=== PATIENT | female | born 1985 | race Caucasian/White ===

== ENCOUNTER 2024-02-21 13:12 | Outpatient (AMB) | payer OTHER, SELFPAY ==
--- NOTE | 2024-02-21 13:13 | A.OFFVIS_ITS ---
Vital Signs 02/21/24 13:22 Height 5 ft 3 in Weight 289 lb 2 oz BMI 51.2 BP 145/75 H Blood Pressure Location Lt brachial Position Sitting Pulse 113 H Intake Visit Reasons: Umbilical Hernia Intake Note: Patient is seen in office for evaluation and treatment of an umbilical hernia. 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 She reports undergoing a laparoscopic cholecystectomy which was complicated by an infection in the abdominal wall. She now notes a palpable lump below the incision just above the umbilicus which increases in size with coughing and straining and causes discomfort when palpated. She now reports nausea and vomiting as well. She reports a previous history of abdominal infections as well following a section. She was recently diagnosed with psoriatic arthritis and is awaiting evaluation by immunology as well. Besides the periumbilical pain she also reports pain in the right upper quadrant near the site of her previous gallbladder surgery. She was unable to feel any lumps in this location. FORMERLY [facility] Surgical History History of laparoscopic cholecystectomy Previous section (~04/27/19) Social History Alcohol intake: current Alcohol intake frequency: holidays/special occasions only Patient Tobacco Use Status: Never used Tobacco Review of Systems Const All systems reviewed & are unremarkable except as noted in HPI and below Denies chills, Denies fever(s), Denies headache(s), Denies poor appetite and Denies weakness ENT Denies headache(s) Card Denies chest pain, Denies irregular heart rhythm, Denies palpitations and Denies dyspnea Resp Denies cough, Denies excessive phlegm production and Denies dyspnea GI Reports abdominal pain, Reports bloating, Denies change in bowel habits, Denies constipation, Reports heartburn, Denies diarrhea, Reports nausea and Reports vomiting Denies urinary frequency Musc Denies back pain, Denies muscle weakness and Denies numbness Skin/Breast Denies changing lesions and Denies unusual bruising Neuro Denies headache(s), Denies numbness, Denies paresthesias and Denies weakness Psych Denies anxiety and Denies depression Endo Denies palpitations Andrea/Lymph Denies lymphadenopathy Physical Exam Const General: cooperative and no acute distress Nutritional Appearance: well nourished Orientation/consciousness: patient oriented x3 Limitations: no limitations HEENT Head: Yes normocephalic and Yes atraumatic Ears: hearing grossly normal bilaterally Resp Effort & Inspection: normal respiratory effort, no audible wheezes, no cough and no respiratory distress Cardio Jugular venous distension: no JVD GI Inspection: Yes normal to inspection Palpation (GI): Soft to palpation, Tenderness to palpation present (GI) (Right upper quadrant and periumbilical), no guarding, not rigid and No hepatosplenomegaly present Percussion: Yes normal to percussion Auscultation: normal bowel sounds Rectal Exam - Female: deferred Skin Other: Warm, dry, no rash Neuro General: patient oriented x3 Extrem General: Yes no clubbing, cyanosis or edema Assessment & Plan Assessment & Plan (1) Abdominal pain, RUQ: Code(s): R10.11 - Right upper quadrant pain Category: Medical (2) Incisional hernia: Comment: supraumbilical s/p laparoscopic cholecystectomy Code(s): K43.2 - Incisional hernia without obstruction or gangrene Category: Medical Qualifiers: Obstruction and gangrene presence: without obstruction or gangrene Qualified Code(s): K43.2 - Incisional hernia without obstruction or gangrene Plan 38-year-old female patient with a prior history of a laparoscopic cholecystecto my now presenting with complaints of pain in the periumbilical region in the vicinity of her previous laparoscopic cholecystectomy incision. Examination reveals an obvious incisional hernia in this location. Examination also reveals tenderness in the right upper quadrant with no other obvious physical findings to indicate underlying hernia or infection. I recommended further evaluation with a CT abdomen and pelvis due to the unusual symptoms away from the site of the incisional hernia. I will call her with the results of the study once they are available. She expressed understanding and agrees with the plan. Orders: Orders CT abdomen pelvis w IV con Today K43.2 - Incisional hernia without obstruction or gangrene, R10.11 - Right upper quadrant pain Coding Level of Care Code New Pt Level 4 (14449) Diagnoses Abdominal pain, RUQ R10.11 Incisional hernia, without obstruction or gangrene K43.2 Obstruction and gangrene presence: without obstruction or gangrene
[2024-02-21 13:22] VITALS: BP 145/75; PULSE 113; BMI 51.2
== END 2024-02-21 13:52 | disposition home or self-care (01) ==
PROVIDERS: PCP Nurse Practitioner; Referring Provider Nurse Practitioner; Visit Provider Surgery
DX: R10.11 Right upper quadrant pain (principal); K43.2 Incisional hernia without obstruction or gangrene
CPT/HCPCS: 99204

== ENCOUNTER 2024-03-14 11:01 | Outpatient (REF) | payer OTHER, SELFPAY ==
--- NOTE | ~2024-03-14 | CT_ITS ---
CLINICAL HISTORY: R10.11 - Right upper quadrant pain CT abdomen and pelvis with contrast Comparison: None Findings: No consolidation or effusion. The appearance of the liver suggests fatty infiltration without focal lesion. Otherwise unremarkable solid organs. There is no abnormal findings in the gallbladder fossa. No urolithiasis. No bowel obstruction, pneumoperitoneum, or pneumatosis. Pelvic contents unremarkable. Normal appendix. The bones are intact. IMPRESSION: Hepatic steatosis. This document has been electronically signed by: Dave Butcher MD on 03/15/2024 21:01:35
[2024-03-14] MEDS: iohexoL 350 MG/ML 100 ML INFUS..BTL 85 ML IV (13:44)
[2024-03-14] MEDS: Barium Sulfate Oral (Berry) 450 ML ORAL.SUSP 900 ML PO (13:44)
== END 2024-03-14 11:02 | disposition home or self-care (01) ==
LOC: HO.CT 11:01
PROVIDERS: PCP Nurse Practitioner; Visit Provider Surgery
DX: R10.11 Right upper quadrant pain (principal); K43.2 Incisional hernia without obstruction or gangrene
CPT/HCPCS: 74177; Q9967

== ENCOUNTER → 2024-03-14 11:03 | Outpatient (BNV) | payer OTHER, SELFPAY | PROVIDERS: PCP Nurse Practitioner; Visit Provider Specialist | DX: K76.0 Fatty (change of) liver, not elsewhere classified (principal) | CPT/HCPCS: 74177 ==

== ENCOUNTER 2024-04-04 09:31 | Day surgery (SDC) | payer OTHER, SELFPAY ==
--- NOTE | 2024-04-02 14:44 | HO.ANESPROP2 ---
Documented by User: Zehra Ross NP 04/02/24 14:46 HPI - Anesthesia Eval Consult details Narrative: 38yo F for Repair Hernia Umbilical Reducible with mesh BMI 51 PMFSH Active Problems Active Problems: All Active Problems Incisional hernia (Acute) Abdominal pain, RUQ (Acute) Surgical History Surgical History History of laparoscopic cholecystectomy Previous section (~04/27/19) Social History Social History Alcohol intake: current Alcohol intake frequency: does not drink Patient Tobacco Use Status: Former Tobacco user Meds Allergies Allergy/AdvReac Type Severity Reaction Status Date / Time cefaclor [From Ceclor] Allergy Mild Unknown Verified 02/21/24 13:19 codeine Allergy Mild Unknown Verified 02/21/24 13:19 Home Medications ?Medication ?Instructions ?Recorded ?Confirmed ?Last Taken ?Type clonazepam 0.5 mg tablet mg PO 02/21/24 02/21/24 04/04/24 History duloxetine 60 mg capsule,delayed 60 mg PO DAILY 02/21/24 02/21/24 04/03/24 History release Assessment and Plan Assessment Anesthesia Assessment: Chart Reviewed Documented by User: Mimi Llanos MD 04/04/24 10:12 PMFSH Surgical History Surgical History History of laparoscopic cholecystectomy Previous section (~04/27/19) History of Problems with Anesthesia: No Social History Social History Alcohol intake: current Alcohol intake frequency: does not drink Patient Tobacco Use Status: Former Tobacco user Meds Allergies Allergy/AdvReac Type Severity Reaction Status Date / Time cefaclor [From Ceclor] Allergy Mild Unknown Verified 02/21/24 13:19 codeine Allergy Mild Unknown Verified 02/21/24 13:19 Home Medications ?Medication ?Instructions ?Recorded ?Confirmed ?Last Taken ?Type clonazepam 0.5 mg tablet mg PO 02/21/24 02/21/24 04/04/24 History duloxetine 60 mg capsule,delayed 60 mg PO DAILY 02/21/24 02/21/24 04/03/24 History release Exam Airway Mallampati Class: III TM Dist: >3cm Neck ROM: Full Loose/Missing/Broken Teeth: No Heart: RRR Lungs: CTA Assessment and Plan Assessment Anesthesia Assessment: Anesthesia Plan Discussed Final Anesthetic Review History of Problems with Anesthesia: No NPO: Yes ASA Class: III Final Preanesthetic Review: Meds/Allgs Chart Reviewed, Consent Obtained/Reviewed and Anes Risks/Benef Reviewed Patient Risk: Intermediate Procedure Risk: Low Anesthetic Plan Anesthetic Plan: GA Disposition: Standard PACU
[2024-04-04] VITALS (11 sets, daily range): BP systolic 95–125; BP diastolic 42–78; PULSE 70–102; RESP 16–20; TEMP 36.5–36.8; O2SAT 94–98; BMI 51.2; BMI 52.3
[2024-04-04 09:50] LABS: UPreg QC Valid YES; Urine Pregnancy NEGATIVE (NEGATIVE)
--- NOTE | 2024-04-04 10:02 | MHC.SHP ---
Pre-Procedural Eval Section A - 24 Hr Update-Section A only Date of Service: 04/04/24 The patient is an INPATIENT: No Changes since office visit: Yes Patient answered all questions; No Cold of Flu in the past 2 weeks, No New Medical Problems and No Changes in Medication The patient has been examined within 24 hours of the surgical procedure. The History & Physical has been completed within 30 days and I have reviewed it.: No Section B - Complete if H&P > 30 days Chief Complaint: Right upper quadrant pain Details of Present Illness: No change since previous visit Relevant Family History (Specify if Yes): No Relevant Social History: None Present Medications: see Short Stay Collaborative assessment Medical History: Significant History (Asthma, obesity) History of Previous Operations: No relevant previous surgery Allergies: Allergies Allergy/AdvReac Type Severity Reaction Status Date / Time cefaclor [From Ceclor] Allergy Mild Unknown Verified 02/21/24 13:19 codeine Allergy Mild Unknown Verified 02/21/24 13:19 Review of Systems Sugical H&P ROS: Negative: Constitution, Cardiovascular, Respiratory, Neurological, Allergic/Immunologic, Gastrointestinal, Genitourinary, Musculoskeletal and Integumentary Exam Surgical H&P Exam: Normal: HEENT, Normal: Heart, Normal: Lungs, Normal: Extremities, Normal: Abdomen and Normal: Skin Plan Diagnosis/Plan: Unchanged I have reviewed the history and physical and performed a pertinent physical examination on my patient. No changes have occurred unless specified. Time Spent With Patient Time: Total time managing care of this patient today ____ minutes.
[2024-04-04] MEDS: Lactated Ringers 1,000 ML 100 ML IVCONT (10:06)
[2024-04-04] MEDS: vancomycin/NS 2,000 MG/500 ML PLAST..BAG 250 MG IV (10:06)
--- NOTE | 2024-04-04 11:17 | P.OP_ITS ---
Operative Note Operative Note Date of Service: 04/04/24 Narrative: Preoperative diagnosis: Umbilical hernia, reducible Postoperative diagnosis: Same Procedure: Repair of umbilical hernia with mesh Surgeon: Kentrell Trotter MD [employer] Supervisor: Airam Goetz PA-C Anesthesia: General endotracheal Indications for procedure: 38-year-old female patient presenting with a palpable lump in the umbilicus noted to have abdominal pain mainly in the upper abdomen. CT abdomen and pelvis confirmed an umbilical hernia measuring approximately 3 cm in diameter. Operative findings: 3 cm reducible umbilical hernia Specimen: Hernia sac Estimated blood loss: 2 mL Complications: None Procedure details: Patient was brought to the OR and placed in a supine position. After administering general anesthesia the patient's abdomen was prepped with ChloraPrep and draped in a sterile fashion. A surgical time-out was called the consent confirmed. Patient received preoperative antibiotics and Venodyne boots were in place. Local anesthesia was then infiltrated in the periumbilical skin. A curvilinear incision was made in a transverse fashion over the umbilicus and carried out through subcutaneous tissue up to the hernia sac. The hernia sac was then dissected off the umbilical skin and the the fascial edges identified. Redundant fascia and sac were then excised and sent to pathology for further examination. A preperitoneal space was then created using electrocautery and blunt dissection. A 6.4 cm round Ventralex mesh was then obtained. This was deployed within the preperitoneal space and secured in 4 quadrants using 0 Tycron sutures in a parachute fashion. The fascia was then closed over the mesh using [id number] 0 Tycron sutures. The abdominal wounds were then irrigated with saline solution and suctioned dry. Umbilical skin was secured to the fascia using a 3-0 Polysorb suture. Subcutaneous tissue and dermis were reapproximated using interrupted 3-0 Polysorb sutures. Skin was then closed using a running subcuticular 4-0 Polysorb suture. Steri-Strips, 4 x 4 gauze and Tegaderm were then applied. The patient tolerated the procedure well. Sponge, instrument, and needle counts were reported as correct. The patient was transferred to PACU in stable condition.
[2024-04-04] MEDS: fentaNYL citrate/PF 100 MCG/2 ML VIAL 25 MCG IVPUSH ×5 (11:50→12:18)
[2024-04-04] MEDS: oxyCODONE HCl Immed Release 5 MG TABLET PO (11:51)
== END 2024-04-04 13:20 | disposition home or self-care (01) ==
PROVIDERS: Nurse Practitioner; PCP Nurse Practitioner; Visit Provider Surgery
PROC: (CPT 49593; principal; 2024-04-04 11:00)
DX: K43.2 Incisional hernia without obstruction or gangrene (principal); R10.11 Right upper quadrant pain; Z79.899 Other long term (current) drug therapy; Z88.1 Allergy status to other antibiotic agents; Z88.5 Allergy status to narcotic agent; Z90.49 Acquired absence of other specified parts of digestive tract; Z86.19 Personal history of other infectious and parasitic diseases
CPT/HCPCS: 49593; 81025; 88302; C1781; J0131; J1100; J2003; J2405; J2704; J3010; J3370

== ENCOUNTER → 2024-04-04 09:31 | Outpatient (BNV) | payer OTHER, SELFPAY | PROVIDERS: PCP Nurse Practitioner; Visit Provider Surgery | DX: K42.9 Umbilical hernia without obstruction or gangrene (principal) | CPT/HCPCS: 49615 ==

== ENCOUNTER 2024-04-12 12:41 | Inpatient (IN) | payer OTHER, SELFPAY ==
--- NOTE | ~2024-04-12 | US_ITS ---
PROCEDURE: Ultrasound-guided drainage of abdominal wall seroma HISTORY: Abdominal wall seroma status post ventral hernia repair. SPECIMEN: A specimen was appropriately labeled and sent to the laboratory as requested ACCESS: 5 fr Yueh needle/catheter MEDICATIONS: 10 mL 1% lidocaine TECHNIQUE/FINDINGS Appropriate preprocedural clinical history and imaging studies were reviewed. The patient was brought to the department and placed in the supine position. Ultrasound images of the abdomen were obtained to localize the abdominal wall fluid collection. Permanent ultrasound images were saved. The risks and benefits and possible complications were discussed with the patient and consent form was signed. The abdomen was prepped and draped in the usual sterile fashion. 10 mL of 1% lidocaine was used to obtain local anesthesia of the skin and deeper tissues. A 10 fr locking catheter was advanced through the abdominal wall and into the fluid collection via trocar method. 60 cc of divina fluid was aspirated sent for culture. The catheter was secured to the skin with a single suture and a sterile dressing was applied over the site. The catheter was then connected to a DADA bulb. The patient tolerated the procedure well. There were no immediate complications US/US drain soft tissue w imaging Impression: Ultrasound-guided drainage of the abdominal wall fluid collection/seroma. This procedures performed by Mikey Wren PA-C and supervised by Dr. Taylor. Electronically signed by: Trenton Taylor MD 04/30/2024 04:[address] [facility]
--- NOTE | ~2024-04-12 | CT_ITS ---
EXAMINATION: CT ABDOMEN AND PELVIS WITH CONTRAST CLINICAL INFORMATION: Follow up abdominal wall seroma. COMPARISON: Outside CT 04/12/2024 ([facility]). 03/14/2024 ([facility] [place] TECHNIQUE: Multidetector volumetric images were obtained from the superior aspect of the liver through the pubic symphysis following administration 85 mL of Omnipaque 350 intravenous contrast. Sagittal and coronal reformatted images were obtained on the technologist's workstation. Oral contrast: No This CT examination was performed using dose optimization techniques as appropriate, variously including the following: *Automated exposure control *Adjustment of mA and/or kV according to patient size (this includes techniques or standardized protocols for targeted exams where dose is matched to indication/reason for exam; i.e. extremities or head) *Use of iterative reconstruction technique FINDINGS: LUNG BASES: The visualized lung bases are unremarkable. Small hiatus hernia. LIVER, GALLBLADDER, AND BILIARY TREE: The liver is normal in size and shape, with mild hypoattenuation consistent with fatty change. No focal hepatic lesion or biliary ductal dilatation is present. Gallbladder is surgically absent. PANCREAS: Mild fatty change of the head and uncinate process. Otherwise normal. SPLEEN: Unremarkable. ADRENAL GLANDS: Mild left hyperplasia, stable. The right is normal. KIDNEYS AND URETERS: The kidneys are normal in size, shape, and attenuation. No hydronephrosis, hydroureter, or calculi seen. No perinephric stranding. BLADDER: Unremarkable. GASTROINTESTINAL TRACT: Normal appendix. Mild sigmoid diverticulosis. No acute finding. Small type I hiatus hernia. ABDOMINAL WALL: -Supraumbilical seroma is increasing in size. It extends subjacent to the rectus sheath, and appears to be organizing into a loculated peripherally enhancing collection. The component subjacent to the rectus sheath measures 2.1 x 4.3 x 4.0 cm (AP, TRV, CC), and the superficial component just superior to the umbilicus measures approximately 6.1 x 4.7 x 4.3 cm. (Both are larger and more organized). LYMPH NODES: Normal. VASCULAR: Unremarkable. PELVIC VISCERA: The uterus and adnexa are unremarkable. IUD position appears slightly low by approximately 1.1 cm. Stable 2.8 cm right ovarian cyst. OSSEOUS STRUCTURES: Minimal levoconvex lumbar scoliosis. Otherwise normal in appearance. CT/CT abdomen pelvis w IV con IMPRESSION: 1. Supraumbilical seroma appears to be larger and more organized, now with thin peripheral enhancement, involving both superficial and deep components. See above for detail. Cannot definitively exclude abscess. 2. Otherwise, no acute findings in the abdomen or pelvis. 3. Hepatic steatosis. 4. Small hiatus hernia. 5. IUD position appears slightly low. Findings communicated to Dr. Trotter at 11:21 AM, 04/16/2024 via secure text. Electronically signed by: Jose Alejandro Maynard MD 04/16/2024 11:25 AM [facility] [place]
[2024-04-12 12:54] VITALS: BP 141/70; PULSE 83; RESP 18; TEMP 36.8; O2SAT 94; BMI 46.6
--- NOTE | 2024-04-12 12:57 | ED.ABDPAIN ---
HPI - Abdominal Pain General Chief Complaint: Abdominal Pain Stated Complaint: RECENT HERNIA REPAIR, ?INFECTION Time Seen by Provider: 04/12/24 12:54 Source: patient, EMS, RN notes reviewed and old records reviewed Mode of arrival: EMS Limitations: no limitations History of Present Illness ED Provider: Salima Lopez PA-C HPI narrative: 38 y/o female with history of morbid obesity, hx cholecystectomy, hx , hx umbilical hernia repair by Dr. Trotter on 04/04/24 who presents to the ER from [facility] as a transfer for surgical follow up of a possible post-op complication/infection. She reports after her surgery 1 week ago she was doing well until 2 days ago when she developed increased pain, abdominal distention, purulent, foul-smelling discharge from the umbilical hernia repair site. She vomited today. She has been using enemas to relieve constipation. She denies fever, chills. She took an ambulance to [facility] ER because they would not transport her to [place]. In [facility] ER patient was found to have a collection of fluid and gas in the SQ tissues deep to the umbilicus measureing 4.4 x 4.0 x 4.9cm. There is also a small collection of fluid just deep to the anterior abdominal wall bear the same level measuring 3.2 x 3.9 x 2.3 cm which may communicate with the superficial collection but does not contain gas. She was given 4mg IV morphine there. She was sent to [place] ER for surgical continuity. MD elicited complaint: abdominal pain and other (concern for infection at surgical site ) Pertinent past history: other (recent umbilical hernia repair) Onset (ago): day(s) (2) Pain Consistency: constant Location: periumbilical Severity: moderate Quality: aching and fullness Radiation: none Migration to: no migration Exacerbating factors: eating Relieving factors: nothing Context: recent surgery/procedure Associated symptoms: nausea, vomiting and constipation Related Data Home Medications ?Medication ?Instructions ?Recorded ?Confirmed duloxetine 60 mg capsule,delayed 60 mg PO DAILY 02/21/24 02/21/24 release clonazepam 1 mg tablet 1 mg PO TID 04/12/24 ibuprofen 600 mg tablet 600 mg PO QID 04/12/24 Previous Rx's ?Medication ?Instructions ?Recorded ondansetron HCl 4 mg tablet 4 mg PO Q8H PRN nausea and 04/04/24 vomiting #20 tabs oxycodone 5 mg tablet 5 mg PO Q6H PRN pain (scale score 04/06/24 7-10) #10 tabs Allergies Allergy/AdvReac Type Severity Reaction Status Date / Time cefaclor [From Ceclor] Allergy Mild Unknown Verified 04/12/24 12:56 codeine Allergy Mild Unknown Verified 04/12/24 12:56 Review of Systems Review of Systems Yes all other systems are reviewed and are negative FORMERLY [facility] Past Medical History Surgical History History of laparoscopic cholecystectomy Previous section (~04/27/19) Social History Social History Alcohol intake: current Alcohol intake frequency: does not drink Patient Tobacco Use Status: Former Tobacco user Smoked in Last 30 Days: No Use of substances other than those prescribed or required for medical reasons: No Advance Directives: No Advance Directives Information Provided: Yes Do you have a plan to hurt others: No Plan Patient : No Physical Exam ED Vital Signs: Vital Signs - 24 hr 04/12/24 12:54 Temperature 98.2 F Pulse Rate 83 Respiratory Rate 18 Blood Pressure 141/70 H Pulse Oximetry 94 Oxygen Delivery Method Room Air BMI result Body Mass Index 46.6 Appearance: Alert. Oriented X3. No acute distress. Head: normocephalic, atraumatic. Eyes: Pupils equal, round and reactive to light. ENT: Pharynx normal. No tonsillar swelling or exudate. Neck: Normal inspection. Neck supple. CVS: Normal heart rate and rhythm. Pulses normal. Respiratory: No respiratory distress. Breath sounds normal. Abdomen: Obese, there is surgical incisions at the umbilicus with steri strips in place with foul smelling drainage, minimal surrounding erythema. no induration or crepitus. tenderness of the periumbilical area. decreased but present +BS x4 Skin: Skin warm and dry. Normal skin color. Normal skin turgor. No rashes. Extremities: No lower extremity edema. No joint swelling. Neuro/psych: Oriented X 3. No motor deficit. No sensory deficit. CN II-XII intact. Normal speech and cognition. slow but steady gait Medical Decision Making Medical Decision Making MDM Narrative: 38 yo female POD #8 from umbilical hernia repair here with concern of abscess or seroma. she is in pain and vomiting. she states she has gotten post-op infections with her gallbladder surgery as well as her . no hx DM. labs showing no leukocytosis. inflammatory markers added. Dr. Trotter aware patient is here. will plan for IV antibiotics and admission. she is not septic at this time. CT Disc given to radiology to upload in our system for review. Differential Diagnosis Differential Diagnoses: The differential diagnosis associated with the presentation includes seroma, abscess, cellulitis, post-op obstruction, fistula Admission/Observation Consideration of admission/observation: Escalation of care including admission/observation considered Consult Healthcare Provider Management of the patient was discussed with: Rn Operating Room Dr. Trotter Lab Data MDM Lab Attestation statement: I reviewed the patient's lab results. 04/12/24 13:21 04/12/24 13:21 Labs: Lab Results 04/12/24 Range/Units 13:21 WBC 10.6 (4.8-10.8) X10*3/uL RBC 4.20 (4.20-5.50) X10*6/uL Hgb 12.6 (12.0-16.0) g/dl Hct 36.5 L (37.0-47.0) % MCV 86.9 (80.0-98.0) fL MCH 30.0 (27.0-33.0) pg MCHC 34.5 (31.0-35.0) g/dl RDW 13.7 (11.0-16.0) % Plt Count 350 (160-400) X10*3/uL MPV 9.6 (9.4-12.3) fL Immature Gran % (Auto) 0.7 H (0.0-0.4) % Neut % (Auto) 64.9 (45-73) % Lymph % (Auto) 24.2 (20-40) % [place] % (Auto) 7.7 (2-11) % Eos % (Auto) 2.1 (0-4) % Baso % (Auto) 0.4 (0-2) % Lymph # (Auto) 2.6 (1.2-4.9) X10*3/uL [place] # (Auto) 0.8 (0.1-1.2) X10*3/uL Eos # (Auto) 0.2 (0.0-0.4) X10*3/uL Baso # (Auto) 0.0 (0.0-0.2) X10*3/uL Abs Immat Gran (auto) 0.07 H (0.00-0.03) X10*3/uL Absolute Neuts (auto) 6.9 (2.0-8.3) x10*3/uL Absolute Nucleated RBC 0.000 (0.0-0.012) X10*3/uL Nucleated RBC % (auto) 0.0 (0.0-0.2) /100WBC ESR 54 H (0-20) MM/HR Sodium 135 (135-145) mmol/L Potassium 4.8 (3.3-5.1) mmol/L Chloride 106 (96-108) mmol/L Carbon Dioxide 20 L (22-29) mmol/L Anion Gap 14 (12-20) BUN 9 (9-16) mg/dL Creatinine 0.73 (0.5-1.4) mg/dL Estim Creat Clear Calc 131.8 Estimated GFR > 60 Random Glucose 89 (60-115) mg/dL Lactic Acid 1.1 (0.5-2.0) mmol/L Calcium 9.0 (8.4-10.2) mg/dL Magnesium 2.1 (1.6-2.6) mg/dL Total Bilirubin 0.3 (0.0-1.0) mg/dL Direct Bilirubin 0.1 (0.0-0.5) mg/dL AST 35 H (5-31) U/L ALT 26 (0-31) U/L Alkaline Phosphatase 79 (39-117) U/L C-Reactive Protein 2.36 H (< or = 0.50) mg/dL Total Protein 7.8 (6.5-8.0) g/dL Albumin 3.8 (3.5-5.0) g/dL Independent Historian Clinical information obtained from an independent historian. History obtained from or confirmed by: EMS External Record Review External record reviewed: Outpatient record, Prior outpatient labs, Prior outpatient radiology and Outside ED record Prescription Management I considered prescription management with: Pain Medication and Antibiotic Chronic Conditions Patient?s care impacted by: Other (morbid obesity ) Medications Administered Discontinued Medications Generic Name Dose Route Start Last Admin Trade Name Freq PRN Reason Stop Dose Admin Lactated Ringer's 1,000 mls @ 999 mls/hr 04/12/24 13:15 04/12/24 13:31 Lr IV 04/12/24 14:15 999 mls/hr .Q1H1M KATHY Administration Piperacillin Sod/Tazobactam 50 mls @ 100 mls/hr 04/12/24 13:09 04/12/24 14:22 Sod 3.375 gm/ Sodium Chloride IV 04/12/24 13:38 Infused ONCE ONE Infusion Ondansetron HCl 4 mg 04/12/24 13:08 04/12/24 13:30 Ondansetron Hcl 4 Mg/2 Ml Vial IVPUSH 04/12/24 13:09 4 mg ONCE ONE Administration Critical Care Time Critical Care Time Critical Care Time: No Discharge Plan Discharge Clinical Impression: Abdominal fluid collection Patient Disposition: Admitted As Inpatient
[2024-04-12 13:26] LABS: MANUAL DIFF FLAG NO
[2024-04-12 13:28] LABS: Basophils Percent Auto 0.4 % (0-2); Eosinophils Absolute Auto 0.2 X10*3/uL (0.0-0.4); Eosinophils Percent Auto 2.1 % (0-4); Hematocrit 36.5 % (37.0-47.0); Hemoglobin 12.6 g/dl (12.0-16.0); Imm Gran Abs Auto 0.07 X10*3/uL (0.00-0.03); Imm Gran Pct Auto 0.7 % (0.0-0.4); Lymphocytes Absolute Auto 2.6 X10*3/uL (1.2-4.9); Lymphocytes Percent Auto 24.2 % (20-40); Mean Corpuscular HGB Conc 34.5 g/dl (31.0-35.0); Mean Corpuscular Volume 86.9 fL (80.0-98.0); Mean Platelet Volume 9.6 fL (9.4-12.3); Monocytes Absolute Auto 0.8 X10*3/uL (0.1-1.2); Monocytes Percent Auto 7.7 % (2-11); Neutrophils Absolute Auto 6.9 x10*3/uL (2.0-8.3); Neutrophils Percent Auto 64.9 % (45-73); Platelet Count 350 X10*3/uL (160-400); Red Cell Distribution Width 13.7 % (11.0-16.0); White Blood Count 10.6 X10*3/uL (4.8-10.8)
[2024-04-12] MEDS: ondansetron HCL 4 MG/2 ML VIAL IVPUSH ×2 (13:30→16:27)
[2024-04-12] MEDS: Lactated Ringers 1,000 ML 999 ML IV (13:31)
[2024-04-12] MEDS: Piperacillin Sodium/Tazobactam 3.375 GM in 0.9 % Sodium Chloride 50 ML IV ×2 (13:34→18:28)
[2024-04-12 13:44] LABS: Lactic Acid 1.1 mmol/L (0.5-2.0)
[2024-04-12 13:53] LABS: Alanine Aminotransferase 26 U/L (0-31); Albumin Level 3.8 g/dL (3.5-5.0); Alkaline Phosphatase 79 U/L (39-117); Anion Gap 14 (12-20); Aspartate Amino Transferase 35 U/L (5-31); Bilirubin Direct 0.1 mg/dL (0.0-0.5); Bilirubin Total 0.3 mg/dL (0.0-1.0); Blood Urea Nitrogen 9 mg/dL (9-16); C Reactive Protein 2.36 mg/dL (< or = 0.50); Carbon Dioxide 20 mmol/L (22-29); Chloride 106 mmol/L (96-108); Creatinine Clr Calc Pharmacy 131.8; Estimated Glomerular Filt Rate > 60; Glucose Random 89 mg/dL (60-115); Magnesium 2.1 mg/dL (1.6-2.6); Potassium 4.8 mmol/L (3.3-5.1); Sodium 135 mmol/L (135-145); Total Protein 7.8 g/dL (6.5-8.0)
[2024-04-12 14:22] LABS: Erythrocyte Sedimentation Rate 54 MM/HR (0-20)
[2024-04-12 14:44] LABS: Hematocrit 36.6 % (37.0-47.0); Hemoglobin 12.5 g/dl (12.0-16.0); Mean Corpuscular HGB Conc 34.2 g/dl (31.0-35.0); Mean Corpuscular Hemoglobin 29.8 pg (27.0-33.0); Mean Corpuscular Volume 87.1 fL (80.0-98.0); Mean Platelet Volume 9.6 fL (9.4-12.3); Platelet Count 323 X10*3/uL (160-400); Red Cell Distribution Width 13.8 % (11.0-16.0); White Blood Count 10.2 X10*3/uL (4.8-10.8)
--- NOTE | 2024-04-12 14:59 | PHA.MEDREC ---
Addendum entered by Bright Daliey 04/12/24 15:07: reviewed Original Note: Pharmacy Consult ? Medication Reconciliation Pharmacy has completed the medication reconciliation. Spoke to patient to confirm med list.
[2024-04-12 15:00] VITALS: BP 118/62; PULSE 78; RESP 18; TEMP 36.8; O2SAT 95
[2024-04-12] MEDS: Acetaminophen 1,000 MG/100 ML PIGGYBACK 400 MG IV ×2 (15:04→21:27)
[2024-04-12] MEDS: Enoxaparin Sodium 40 MG/0.4 ML SYRINGE SUBCUT (15:15)
[2024-04-12] MEDS: oxyCODONE HCl Immed Release 5 MG TABLET PO (15:15)
--- NOTE | 2024-04-12 15:29 | P.HPGS_ITS ---
History of Present Illness History of Present Illness Date of Service: 04/12/24 Chief complaint: Abd pain following umbilical hernia repair Narrative: Radha Honeycutt is a 38 year old female presenting with complaints of periumbilical abdominal pain following repair of an umbilical hernia performed on 04/04/2024 as a short-stay surgery. She reports having drainage of fluid through her incision over the past several days with associated nausea and vomiting. She presented to the emergency department at [facility] today at which time a CT abdomen and pelvis was performed. This revealed a fluid collection around the umbilical incision possibly seroma or abscess. She was subsequently transferred to [facility] [place] [facility] [place]. Currently she reports pain surrounding the incision as well as nausea/vomiting. She is being admitted to the surgical service for IV antibiotics and further wound management. Review of Systems 2 Review of Systems: Yes all other systems are reviewed and are negative [facility] Surgical History Surgical History History of laparoscopic cholecystectomy Previous section (~04/27/19) Social History Social History Alcohol intake: current Alcohol intake frequency: does not drink Patient Tobacco Use Status: Former Tobacco user Smoked in Last 30 Days: No Use of substances other than those prescribed or required for medical reasons: No Advance Directives: No Advance Directives Information Provided: Yes Do you have a plan to hurt others: No Plan Patient : No Meds Allergies Allergy/AdvReac Type Severity Reaction Status Date / Time cefaclor [From Ceclor] Allergy Mild Unknown Verified 04/12/24 12:56 codeine Allergy Mild Unknown Verified 04/12/24 12:56 Active Medications: Current Medications Calcium Carbonate (Calcium Carbonate 750 Mg Tab.Chew) 750 mg PO Q4H PRN PRN Reason: Heartburn Enoxaparin Sodium (Enoxaparin Sodium 40 Mg/0.4 Ml Syringe) 40 mg SUBCUT Q24H KATHY Last Admin: 04/12/24 15:15 Dose: 40 mg Hydromorphone HCl (Hydromorphone Hcl 0.5 Mg/0.5 Ml Syringe) 0.5 mg IVPUSH Q3H PRN; Protocol PRN Reason: Pain, Severe (Pain Scale 7-10) Acetaminophen (Ofirmev) 1,000 mg in 100 mls @ 400 mls/hr IV Q6H [facility] Last Admin: 04/12/24 15:04 Dose: 400 mls/hr Dextrose/Lactated Ringer's (D5lr) 1,000 mls @ 80 mls/hr IVCONT .[id number] [facility] Piperacillin Sod/Tazobactam (Sod 3.375 gm/ Sodium Chloride) 50 mls @ 100 mls/hr IV Q6H [facility] Magnesium Hydroxide (Milk Of Magnesia 30 Ml Oral.Susp) 30 ml PO DAILY PRN PRN Reason: Constipation Melatonin (Melatonin 3 Mg Tablet) 6 mg PO BEDTIME PRN PRN Reason: Insomnia Ondansetron HCl (Ondansetron Hcl 4 Mg/2 Ml Vial) 4 mg IVPUSH QID PRN PRN Reason: Nausea Oxycodone HCl (Oxycodone Hcl Immed Release 5 Mg Tablet) 5 mg PO Q6H PRN PRN Reason: Pain, Moderate(Pain Scale 4-6) Last Admin: 04/12/24 15:15 Dose: 5 mg Sodium Chloride (0.9 % Sodium Chloride Flush 3 Ml Syringe) 3 ml IVFLUSH QSHIFT [facility] Home Medications ?Medication ?Instructions ?Recorded ?Confirmed ?Last Taken ?Type duloxetine 60 mg capsule,delayed 60 mg PO DAILY 02/21/24 04/12/24 04/12/24 History release clonazepam 1 mg tablet 1 mg PO TID PRN Anxiety 04/12/24 04/12/24 Unknown History fluticasone propionate 50 1 spray intranasal DAILY PRN 04/12/24 04/12/24 Unknown History mcg/actuation nasal Allergy Symptoms spray,suspension ibuprofen 600 mg tablet 600 mg PO QID PRN Pain 04/12/24 04/12/24 Unknown History levonorgestrel 20.4 mcg/24 hr (up 20.4 mcg intrauterine DIRECTED 04/12/24 04/12/24 Unknown History to 8 yrs) 52 mg intrauterine device (Liletta) Physical Exam 2 Vital Signs: Vital Signs: Last Vital Signs Temp 98.2 F 04/12/24 15:00 Pulse 78 04/12/24 15:00 Resp 18 04/12/24 15:00 BP 118/62 04/12/24 15:00 Pulse Ox 95 04/12/24 15:00 O2 Del Method Room Air 04/12/24 15:00 BMI result Body Mass Index 46.6 Const: General: cooperative and no acute distress Nutritional Appearance: w ell nourished Orientation/consciousness: patient oriented x3 Limitations: no limitations HEENT: Head: Yes normocephalic and Yes atraumatic Ears: hearing grossly normal bilaterally Resp: Effort & Inspection: normal respiratory effort, no audible wheezes, no cough and no respiratory distress Cardio: Jugular venous distension: no JVD GI: Other: Incision in a transverse fashion located just above the umbilicus with some serous discharge noted. No erythema is noted in the surrounding skin. There is tenderness to light palpation. Wound is not fluctuant. Inspection: Yes normal to inspection Palpation (GI): Soft to palpation, Tenderness to palpation present (GI) (Right upper quadrant and periumbilical), no guarding, not rigid and No hepatosplenomegaly present Percussion: Yes normal to percussion Auscultation: normal bowel sounds Rectal Exam - Female: deferred Abdomen image: 1. Periumbilical incision Skin: Other: Warm, dry, no rash Neuro: General: patient oriented x3 Extrem: General: Yes no clubbing, cyanosis or edema Results Results Labs: Short CBC 04/12/24 04/12/24 Range/Units 13:21 14:33 WBC 10.6 10.2 (4.8-10.8) X10*3/uL Hgb 12.6 12.5 (12.0-16.0) g/dl Hct 36.5 L 36.6 L (37.0-47.0) % Plt Count 350 323 (160-400) X10*3/uL BMP 04/12/24 13:21 Sodium 135 Potassium 4.8 Chloride 106 Carbon Dioxide 20 L BUN 9 Creatinine 0.73 Calcium 9.0 Liver Function 04/12/24 Range/Units 13:21 Total Bilirubin 0.3 (0.0-1.0) mg/dL Direct Bilirubin 0.1 (0.0-0.5) mg/dL AST 35 H (5-31) U/L ALT 26 (0-31) U/L Alkaline Phosphatase 79 (39-117) U/L Albumin 3.8 (3.5-5.0) g/dL Additional studies: CT abdomen from [facility]: Assessment and Plan (1) Abdominal fluid collection: Status: Acute (2) Incisional hernia: Qualifiers: Obstruction and gangrene presence: without obstruction or gangrene Q ualified Code(s): K43.2 - Incisional hernia without obstruction or gangrene Status: Acute Plan 38-year-old female patient presenting with complaints of drainage from her abdominal incision following an open incisional hernia repair at the umbilicus 1 week ago. Examination does reveal some serous discharge from the wound. There is no surrounding erythema in the skin however. Review of the CT abdomen and pelvis reveals a subcutaneous fluid collection within the pannus which appears most consistent with a seroma although abscess can not be completely ruled out. I therefore recommended admission for IV antibiotics and further wound management. Patient expressed understanding and agrees with the plan. Quality Stroke Does the patient have a stroke diagnosis?: No VTE Prior VTE?: No VTE Risk Level:: Surgical - moderate VTE Device Contraindication: N/A - Device Ordered VTE Drug Contraindication: N/A - Med Ordered Procedures Date of Service Date of Service: 04/12/24
--- NOTE | 2024-04-12 15:32 | PC.NURSE ---
Pt BIBA from [facility] ED transfer, had hernia surgery here on 04/04. For past few days having increased pain, N/V, intermittent fevers and drainage from site (foul). Alert and oriented, breathing even and unlabored, skin warm. Pain in ABD intermittent and worsens with movement. Pt does have a few episodes of vomiting here in ED. Medicated per MAY. Denies SOB or CP.
[2024-04-12] MEDS: Dextrose 5 % and Lactated Ring 1,000 ML 80 ML IVCONT (15:53)
[2024-04-12] MEDS: 0.9 % Sodium Chloride Flush 3 ML SYRINGE IVFLUSH (15:54)
[2024-04-12] MEDS: clonazePAM 1 MG TABLET PO (17:27)
--- NOTE | 2024-04-12 17:34 | PC.NURSE ---
Pt unable to provide urine sample at this time, reports she urinated when she got here and then was incontinent during vomiting episode. Reports she will try again soon
--- NOTE | 2024-04-12 17:35 | PC.NURSE ---
Pt placed in hospital bed for comfort
[2024-04-12 18:41] VITALS: BP 127/67; PULSE 68; RESP 16; TEMP 36.6; O2SAT 96
[2024-04-12 19:39] VITALS: BP 118/74; PULSE 75; RESP 18; TEMP 36.6; O2SAT 75
[2024-04-12 21:31] VITALS: BP 123/75; PULSE 67; RESP 16; TEMP 36.7; O2SAT 97
[2024-04-12 21:32] LABS: Appearance Urine Clear; Color Urine Straw; Glucose Urine UA Negative (Negative); Leukocyte Esterase Urine Negative (Negative); Nitrite Urine Negative (Negative); Urine Blood Negative (Negative); Urine Ketones Negative (Negative); Urine Protein Negative (Neg-Trace)
[2024-04-12 21:53] LABS: UPreg QC Valid YES; Urine Pregnancy NEGATIVE (NEGATIVE)
[2024-04-13] VITALS (7 sets, daily range): BP systolic 117–133; BP diastolic 60–81; PULSE 64–82; RESP 14–20; TEMP 36.7–37.2; O2SAT 95–98
[2024-04-13] MEDS: Piperacillin Sodium/Tazobactam 3.375 GM in 0.9 % Sodium Chloride 50 ML IV ×4 (00:47→18:26)
[2024-04-13] MEDS: Acetaminophen 1,000 MG/100 ML PIGGYBACK 400 MG IV ×4 (03:08→21:58)
[2024-04-13] MEDS: Dextrose 5 % and Lactated Ring 1,000 ML 80 ML IVCONT ×2 (03:12→14:04)
[2024-04-13] MEDS: DULoxetine HCl 60 MG CAPSULE.DR PO (08:10)
[2024-04-13] MEDS: HYDROmorphone HCl 0.5 MG/0.5 ML SYRINGE IVPUSH ×4 (08:10→20:37)
--- NOTE | 2024-04-13 08:11 | P.PNGS_ITS ---
Subjective Subjective Date of Service: 04/13/24 Interval history: Patient reports having a good night sleep, still having some abdominal pain but denies further nausea vomiting. Physical Exam 2 Vital Signs: Vital Signs: Last Vital Signs Temp 98.4 F 04/13/24 03:56 Pulse 67 04/13/24 06:41 Resp 18 04/13/24 08:10 BP 133/81 04/13/24 06:41 Pulse Ox 95 04/13/24 06:41 O2 Del Method Room Air 04/13/24 06:41 BMI result Body Mass Index 46.6 Const: General: comfortable Nutritional Appearance: obese O rientation/consciousness: patient oriented x3 Limitations: no limitations Resp: Effort & Inspection: normal respiratory effort GI: Other: Umbilical incision is intact with a small amount of serous discharge noted. No surrounding erythema. Inspection: Yes normal to inspection Palpation (GI): Soft to palpation Neuro: General: patient oriented x3 Extrem: General: No edema Objective Data Active Medications Calcium Carbonate (Calcium Carbonate 750 Mg Tab.Chew) 750 mg PO Q4H PRN PRN Reason: Heartburn Clonazepam (Clonazepam 1 Mg Tablet) 1 mg PO TID PRN PRN Reason: Anxiety Last Admin: 04/12/24 17:27 Dose: 1 mg Documented By: GILDA Duloxetine HCl (Duloxetine Hcl 60 Mg Capsule.Dr) 60 mg PO DAILY [facility] Last Admin: 04/13/24 08:10 Dose: 60 mg Documented By: MEGAN Enoxaparin Sodium (Enoxaparin Sodium 40 Mg/0.4 Ml Syringe) 40 mg SUBCUT Q24H [facility] Last Admin: 04/12/24 15:15 Dose: 40 mg Documented By: GILDA Fluticasone Propionate (Fluticasone Propionate Nasal 16 Gm [place]) 1 spray NOSTRIL-B DAILY PRN PRN Reason: Allergy Symptoms Hydromorphone HCl (Hydromorphone Hcl 0.5 Mg/0.5 Ml Syringe) 0.5 mg IVPUSH Q3H PRN; Protocol PRN Reason: Pain, Severe (Pain Scale 7-10) Last Admin: 04/13/24 08:10 Dose: 0.5 mg Documented By: MEGAN Acetaminophen (Ofirmev) 1,000 mg in 100 mls @ 400 mls/hr IV Q6H [facility] Last Infusion: 04/13/24 03:30 Dose: Infused Documented By: RHONDA Dextrose/Lactated Ringer's (D5lr) 1,000 mls @ 80 mls/hr IVCONT .[id number] [facility] Last Admin: 04/13/24 03:12 Dose: 80 mls/hr Documented By: RHONDA Piperacillin Sod/Tazobactam (Sod 3.375 gm/ Sodium Chloride) 50 mls @ 100 mls/hr IV Q6H [facility] Last Infusion: 04/13/24 07:21 Dose: Infused Documented By: MEGAN Magnesium Hydroxide (Milk Of Magnesia 30 Ml Oral.Susp) 30 ml PO DAILY PRN PRN Reason: Constipation Melatonin (Melatonin 3 Mg Tablet) 6 mg PO BEDTIME PRN PRN Reason: Insomnia Ondansetron HCl (Ondansetron Hcl 4 Mg/2 Ml Vial) 4 mg IVPUSH QID PRN PRN Reason: Nausea Last Admin: 04/12/24 16:27 Dose: 4 mg Documented By: GILDA Oxycodone HCl (Oxycodone Hcl Immed Release 5 Mg Tablet) 5 mg PO Q6H PRN PRN Reason: Pain, Moderate(Pain Scale 4-6) Last Admin: 04/12/24 15:15 Dose: 5 mg Documented By: GILDA Promethazine HCl (Promethazine Hcl 25 Mg/Ml Vial) 12.5 mg IM Q6H PRN PRN Reason: Nausea and Vomiting Sodium Chloride (0.9 % Sodium Chloride Flush 3 Ml Syringe) 3 ml IVFLUSH QSHIFT [facility] Last Admin: 04/13/24 00:06 Dose: Not Given Documented By: RHONDA Non-Admin Reason: IV Running Labs 04/12/24 14:33 04/12/24 13:21 Labs: Laboratory Results - last 24 hr 04/12/24 04/12/24 04/12/24 13:21 14:33 19:10 MCV 86.9 87.1 MCH 30.0 29.8 MCHC 34.5 34.2 RDW 13.7 13.8 Plt Count 350 323 MPV 9.6 9.6 Immature Gran % (Auto) 0.7 H Neut % (Auto) 64.9 Lymph % (Auto) 24.2 Nolan % (Auto) 7.7 Eos % (Auto) 2.1 Baso % (Auto) 0.4 Lymph # (Auto) 2.6 Nolan # (Auto) 0.8 Eos # (Auto) 0.2 Baso # (Auto) 0.0 Abs Immat Gran (auto) 0.07 H Absolute Neuts (auto) 6.9 Absolute Nucleated RBC 0.000 0.000 Nucleated RBC % (auto) 0.0 0.0 ESR 54 H Anion Gap 14 Estim Creat Clear Calc 131.8 Estimated GFR > 60 Random Glucose 89 Lactic Acid 1.1 Calcium 9.0 Magnesium 2.1 Total Bilirubin 0.3 Direct Bilirubin 0.1 AST 35 H ALT 26 Alkaline Phosphatase 79 C-Reactive Protein 2.36 H Total Protein 7.8 Albumin 3.8 Urine Color Straw Urine Appearance Clear Urine pH 7.0 Ur Specific [place] 1.010 Urine Protein Negative Urine Glucose (UA) Negative Urine Ketones Negative Urine Blood Negative Urine Nitrite Negative Ur Leukocyte Esterase Negative Urine Test NEGATIVE Procedures Date of Service Date of Service: 04/13/24 Progress Note: A&P Assessment and plan (1) Incisional hernia: Status: Acute (2) Abdominal fluid collection: Status: Acute Plan 38-year-old female patient with postoperative seroma most likely due to patient's body habitus. No evidence of cellulitis or abscess at this time clinically. We will continue IV antibiotics and local wound care. Time Spent With Patient Time: Total time managing care of this patient today ____ minutes. Quality Stroke Does the patient have a stroke diagnosis?: No VTE Prior VTE?: No VTE Risk Level:: Surgical - moderate VTE Device Contraindication: N/A - Device Ordered VTE Drug Contraindication: N/A - Med Ordered
[2024-04-13] MEDS: Promethazine HCL 25 MG/ML VIAL 12.5 MG IM (08:20)
[2024-04-13 09:01] LABS: MANUAL DIFF FLAG NO
[2024-04-13 09:05] LABS: Basophils Percent Auto 0.3 % (0-2); Eosinophils Absolute Auto 0.1 X10*3/uL (0.0-0.4); Eosinophils Percent Auto 1.3 % (0-4); Hematocrit 36.7 % (37.0-47.0); Hemoglobin 12.4 g/dl (12.0-16.0); Imm Gran Abs Auto 0.05 X10*3/uL (0.00-0.03); Imm Gran Pct Auto 0.5 % (0.0-0.4); Lymphocytes Absolute Auto 1.9 X10*3/uL (1.2-4.9); Lymphocytes Percent Auto 18.9 % (20-40); Mean Corpuscular HGB Conc 33.8 g/dl (31.0-35.0); Mean Corpuscular Hemoglobin 29.7 pg (27.0-33.0); Mean Platelet Volume 9.7 fL (9.4-12.3); Monocytes Absolute Auto 0.8 X10*3/uL (0.1-1.2); Monocytes Percent Auto 7.5 % (2-11); Neutrophils Absolute Auto 7.3 x10*3/uL (2.0-8.3); Neutrophils Percent Auto 71.5 % (45-73); Platelet Count 352 X10*3/uL (160-400); Red Blood Count 4.17 X10*6/uL (4.20-5.50); Red Cell Distribution Width 13.7 % (11.0-16.0); White Blood Count 10.2 X10*3/uL (4.8-10.8)
--- NOTE | 2024-04-13 10:03 | PC.NURSE ---
pt arrived to med-surg from ED around 944- wound to umbilicus present with small amount of serosanguinous drainage, mild odor, site cleansed with NS, pat dry, dry gauze applied
--- NOTE | 2024-04-13 11:17 | MHC.CM.PN ---
pt dcd home self care prior to being seen by cm
--- NOTE | 2024-04-13 12:37 | MHC.CM.PN ---
PT LIVES WITH IS INDEPENDENT HAS OWN RIDE HOME DC PLAN HOME NO SERVICES
[2024-04-13] MEDS: Enoxaparin Sodium 40 MG/0.4 ML SYRINGE SUBCUT (14:07)
[2024-04-13] MEDS: ondansetron HCL 4 MG/2 ML VIAL IVPUSH ×2 (15:14→20:32)
[2024-04-13] MEDS: clonazePAM 1 MG TABLET PO (21:59)
[2024-04-13] MEDS: 0.9 % Sodium Chloride Flush 3 ML SYRINGE IVFLUSH (22:40)
[2024-04-14] MEDS: Piperacillin Sodium/Tazobactam 3.375 GM in 0.9 % Sodium Chloride 50 ML IV ×4 (01:48→18:38)
[2024-04-14] MEDS: Dextrose 5 % and Lactated Ring 1,000 ML 80 ML IVCONT ×2 (01:54→14:00)
[2024-04-14] MEDS: Acetaminophen 1,000 MG/100 ML PIGGYBACK 400 MG IV ×4 (02:25→21:15)
[2024-04-14 03:37] VITALS: BP 121/76; PULSE 60; RESP 16; TEMP 36; O2SAT 97
[2024-04-14] MEDS: ondansetron HCL 4 MG/2 ML VIAL IVPUSH ×3 (06:44→23:15)
[2024-04-14] MEDS: HYDROmorphone HCl 0.5 MG/0.5 ML SYRINGE IVPUSH ×4 (06:46→19:04)
[2024-04-14 07:35] VITALS: BP 120/59; PULSE 62; RESP 18; TEMP 36.5; O2SAT 96
[2024-04-14] MEDS: DULoxetine HCl 60 MG CAPSULE.DR PO (08:32)
[2024-04-14] MEDS: 0.9 % Sodium Chloride Flush 3 ML SYRINGE IVFLUSH ×3 (08:41→22:05)
[2024-04-14] MEDS: Promethazine HCL 25 MG/ML VIAL 12.5 MG IM ×2 (10:21→20:01)
[2024-04-14 13:55] VITALS: BP 132/63; PULSE 71; RESP 18; TEMP 36.9; O2SAT 97
[2024-04-14] MEDS: Enoxaparin Sodium 40 MG/0.4 ML SYRINGE SUBCUT (14:12)
--- NOTE | 2024-04-14 15:19 | P.PNGS_ITS ---
Subjective Subjective Date of Service: 04/14/24 Interval history: Patient feeling some sharp abdominal pain feels crampy. Has been passing some gas but has not had a bowel movement for several days now. Drainage is consistent with just some serous material. Physical Exam 2 Vital Signs: Vital Signs: Last Vital Signs Temp 98.5 F 04/14/24 13:55 Pulse 71 04/14/24 13:55 Resp 18 04/14/24 13:55 BP 132/63 04/14/24 13:55 Pulse Ox 97 04/14/24 13:55 O2 Del Method Room Air 04/14/24 13:55 BMI result Body Mass Index 46.6 GI: Other: Abdomen is soft but she is tender around the umbilical area she does have good bowel sounds there is some serous drainage in the umbilical crater. No significant erythema at the incision Objective Data Active Medications Calcium Carbonate (Calcium Carbonate 750 Mg Tab.Chew) 750 mg PO Q4H PRN PRN Reason: Heartburn Clonazepam (Clonazepam 1 Mg Tablet) 1 mg PO TID PRN PRN Reason: Anxiety Last Admin: 04/13/24 21:59 Dose: 1 mg Documented By: BASSAM Duloxetine HCl (Duloxetine Hcl 60 Mg Capsule.Dr) 60 mg PO DAILY [facility] Last Admin: 04/14/24 08:32 Dose: 60 mg Documented By: JUAN Enoxaparin Sodium (Enoxaparin Sodium 40 Mg/0.4 Ml Syringe) 40 mg SUBCUT Q24H [facility] Last Admin: 04/14/24 14:12 Dose: 40 mg Documented By: JUAN Fluticasone Propionate (Fluticasone Propionate Nasal 16 Gm [place]) 1 spray NOSTRIL-B DAILY PRN PRN Reason: Allergy Symptoms Hydromorphone HCl (Hydromorphone Hcl 0.5 Mg/0.5 Ml Syringe) 0.5 mg IVPUSH Q3H PRN; Protocol PRN Reason: Pain, Severe (Pain Scale 7-10) Last Admin: 04/14/24 14:56 Dose: 0.5 mg Documented By: JUAN Acetaminophen (Ofirmev) 1,000 mg in 100 mls @ 400 mls/hr IV Q6H [facility] Last Infusion: 04/14/24 14:27 Dose: Infused Documented By: JUAN Piperacillin Sod/Tazobactam (Sod 3.375 gm/ Sodium Chloride) 50 mls @ 100 mls/hr IV Q6H [facility] Last Infusion: 04/14/24 14:02 Dose: Infused Documented By: JUAN Magnesium Hydroxide (Milk Of Magnesia 30 Ml Oral.Susp) 30 ml PO DAILY PRN PRN Reason: Constipation Melatonin (Melatonin 3 Mg Tablet) 6 mg PO BEDTIME PRN PRN Reason: Insomnia Ondansetron HCl (Ondansetron Hcl 4 Mg/2 Ml Vial) 4 mg IVPUSH QID PRN PRN Reason: Nausea Last Admin: 04/14/24 14:11 Dose: 4 mg Documented By: JUAN Oxycodone HCl (Oxycodone Hcl Immed Release 5 Mg Tablet) 5 mg PO Q6H PRN PRN Reason: Pain, Moderate(Pain Scale 4-6) Last Admin: 04/12/24 15:15 Dose: 5 mg Documented By: GILDA Promethazine HCl (Promethazine Hcl 25 Mg/Ml Vial) 12.5 mg IM Q6H PRN PRN Reason: Nausea and Vomiting Last Admin: 04/14/24 10:21 Dose: 12.5 mg Documented By: JUAN Sodium Chloride (0.9 % Sodium Chloride Flush 3 Ml Syringe) [facility] Last Admin: 04/14/24 14:56 Dose: 3 ml Documented By: JUAN Labs 04/13/24 08:38 04/12/24 13:21 Microbiology Microbiology Results: Microbiology 04/12/24 16:31 Gram Stain - Final Abdomen - Abdominal Routine Culture - Preliminary Coag negative Staphylococcus 04/12/24 13:30 Blood Culture - Preliminary Blood - Venous No growth after 24 hours. 04/12/24 13:21 Blood Culture - Preliminary Blood - Venous No growth after 24 hours. Procedures Date of Service Date of Service: 04/14/24 Progress Note: A&P Assessment and plan (1) Abdominal fluid collection: Status: Acute Assessment and Plan: 38-year-old female status post umbilical hernia repair with some seroma leakage from the incision umbilicus area doing better. Plan to continue with the IV antibiotics for today and I think that she has just a little constipated and if we can do a little bit of some Mag citrate that will help her feel better. She understands and agrees with the above plan. Continue with the [place] for now Time Spent With Patient Time: Total time managing care of this patient today ____ minutes. Quality Stroke Does the patient have a stroke diagnosis?: No VTE Prior VTE?: No VTE Risk Level:: Surgical - moderate VTE Device Contraindication: N/A - Device Ordered VTE Drug Contraindication: N/A - Med Ordered
[2024-04-14] MEDS: Magnesium Citrate 300 ML SOLUTION 100 ML PO (16:15)
[2024-04-14 19:08] VITALS: BP 123/63; PULSE 85; RESP 18; TEMP 36.8; O2SAT 97
--- NOTE | 2024-04-14 19:27 | PC.NURSE ---
100cc Mag Citrate given @ 1615 per order. Pt has not produced a BM so another 100cc given @ 1915.
[2024-04-14] MEDS: Milk of Magnesia 30 ML ORAL.SUSP PO (23:15)
[2024-04-15] MEDS: HYDROmorphone HCl 0.5 MG/0.5 ML SYRINGE IVPUSH ×5 (00:04→21:12)
[2024-04-15] MEDS: Piperacillin Sodium/Tazobactam 3.375 GM in 0.9 % Sodium Chloride 50 ML IV ×4 (00:41→18:19)
[2024-04-15] MEDS: Acetaminophen 1,000 MG/100 ML PIGGYBACK 400 MG IV ×3 (02:54→14:50)
[2024-04-15 05:47] VITALS: BP 134/68; PULSE 61; RESP 16; TEMP 36; O2SAT 98
[2024-04-15] MEDS: ondansetron HCL 4 MG/2 ML VIAL IVPUSH ×3 (05:47→20:21)
[2024-04-15 07:38] VITALS: BP 141/59; PULSE 66; RESP 16; TEMP 36.7; O2SAT 97
[2024-04-15] MEDS: DULoxetine HCl 60 MG CAPSULE.DR PO (09:08)
[2024-04-15] MEDS: 0.9 % Sodium Chloride Flush 3 ML SYRINGE IVFLUSH ×3 (09:09→20:23)
[2024-04-15 13:37] VITALS: BP 121/59; PULSE 84; RESP 16; TEMP 36.4; O2SAT 98
[2024-04-15 15:20] VITALS: BP 121/59; PULSE 78; RESP 18; TEMP 36.5; O2SAT 98
[2024-04-15 15:49] LABS: MANUAL DIFF FLAG NO
[2024-04-15 15:51] LABS: Basophils Percent Auto 0.3 % (0-2); Eosinophils Absolute Auto 0.1 X10*3/uL (0.0-0.4); Eosinophils Percent Auto 1.4 % (0-4); Hematocrit 33.1 % (37.0-47.0); Hemoglobin 11.4 g/dl (12.0-16.0); Imm Gran Abs Auto 0.04 X10*3/uL (0.00-0.03); Imm Gran Pct Auto 0.5 % (0.0-0.4); Lymphocytes Absolute Auto 1.8 X10*3/uL (1.2-4.9); Lymphocytes Percent Auto 20.8 % (20-40); Mean Corpuscular HGB Conc 34.4 g/dl (31.0-35.0); Mean Corpuscular Hemoglobin 30.3 pg (27.0-33.0); Monocytes Absolute Auto 0.7 X10*3/uL (0.1-1.2); Monocytes Percent Auto 7.7 % (2-11); Neutrophils Absolute Auto 6.1 x10*3/uL (2.0-8.3); Neutrophils Percent Auto 69.3 % (45-73); Platelet Count 309 X10*3/uL (160-400); Red Blood Count 3.76 X10*6/uL (4.20-5.50); Red Cell Distribution Width 13.3 % (11.0-16.0); White Blood Count 8.8 X10*3/uL (4.8-10.8)
--- NOTE | 2024-04-15 16:51 | PM.PNGS ---
Subjective Subjective Date of Service: 04/15/24 Interval history: Patient doing okay but she is very concerned that in the past she has had abscesses which have gotten worse and sub gotten better with her etc.. She is afebrile she did finally have some good bowel movements and feels a little improved from that but she is still concerned because it is draining still fluid and she does feel little uncomfortable. She is afebrile Physical Exam Vital Signs: Vital Signs: Last Vital Signs Temp 97.7 F 04/15/24 15:20 Pulse 78 04/15/24 15:20 Resp 18 04/15/24 15:20 BP 121/59 L 04/15/24 15:20 Pulse Ox 98 04/15/24 15:20 O2 Del Method Room Air 04/15/24 15:20 BMI result Body Mass Index 46.6 GI: Other: Abdomen is softer less distended incision area looks fine there still serous type material draining into the belly area. Surrounding skin looks good Objective Data Active Medications Calcium Carbonate (Calcium Carbonate 750 Mg Tab.Chew) 750 mg PO Q4H PRN PRN Reason: Heartburn Clonazepam (Clonazepam 1 Mg Tablet) 1 mg PO TID PRN PRN Reason: Anxiety Last Admin: 04/13/24 21:59 Dose: 1 mg Documented By: BASSAM Duloxetine HCl (Duloxetine Hcl 60 Mg Capsule.Dr) 60 mg PO DAILY [facility] Last Admin: 04/15/24 09:08 Dose: 60 mg Documented By: JUAN Enoxaparin Sodium (Enoxaparin Sodium 40 Mg/0.4 Ml Syringe) 40 mg SUBCUT Q24H [facility] Last Admin: 04/15/24 14:53 Dose: Not Given Documented By: JUAN Non-Admin Reason: Patient Refused Fluticasone Propionate (Fluticasone Propionate Nasal 16 Gm [place]) 1 spray NOSTRIL-B DAILY PRN PRN Reason: Allergy Symptoms Hydromorphone HCl (Hydromorphone Hcl 0.5 Mg/0.5 Ml Syringe) 0.5 mg IVPUSH Q3H PRN; Protocol PRN Reason: Pain, Severe (Pain Scale 7-10) Last Admin: 04/15/24 15:35 Dose: 0.5 mg Documented By: JUAN Piperacillin Sod/Tazobactam (Sod 3.375 gm/ Sodium Chloride) 50 mls @ 100 mls/hr IV Q6H [facility] Last Infusion: 04/15/24 13:08 Dose: Infused Documented By: JUAN Magnesium Hydroxide (Milk Of Magnesia 30 Ml Oral.Susp) 30 ml PO DAILY PRN PRN Reason: Constipation Last Admin: 04/14/24 23:15 Dose: 30 ml Documented By: BASSAM Melatonin (Melatonin 3 Mg Tablet) 6 mg PO BEDTIME PRN PRN Reason: Insomnia Ondansetron HCl (Ondansetron Hcl 4 Mg/2 Ml Vial) 4 mg IVPUSH QID PRN PRN Reason: Nausea Last Admin: 04/15/24 12:25 Dose: 4 mg Documented By: JUAN Oxycodone HCl (Oxycodone Hcl Immed Release 5 Mg Tablet) 5 mg PO Q6H PRN PRN Reason: Pain, Moderate(Pain Scale 4-6) Last Admin: 04/12/24 15:15 Dose: 5 mg Documented By: GILDA Promethazine HCl (Promethazine Hcl 25 Mg/Ml Vial) 12.5 mg IM Q6H PRN PRN Reason: Nausea and Vomiting Last Admin: 04/14/24 20:01 Dose: 12.5 mg Documented By: BASSAM Sodium Chloride (0.9 % Sodium Chloride Flush 3 Ml Syringe) [facility] Last Admin: 04/15/24 09:18 Dose: 3 ml Documented By: JUAN Labs 04/15/24 15:11 04/12/24 13:21 Labs: Laboratory Results - last 24 hr 04/15/24 15:11 MCV 88.0 MCH 30.3 MCHC 34.4 RDW 13.3 Plt Count 309 MPV 10.0 Immature Gran % (Auto) 0.5 H Neut % (Auto) 69.3 Lymph % (Auto) 20.8 [place] % (Auto) 7.7 Eos % (Auto) 1.4 Baso % (Auto) 0.3 Lymph # (Auto) 1.8 [place] # (Auto) 0.7 Eos # (Auto) 0.1 Baso # (Auto) 0.0 Abs Immat Gran (auto) 0.04 H Absolute Neuts (auto) 6.1 Absolute Nucleated RBC 0.000 Nucleated RBC % (auto) 0.0 Microbiology Microbiology Results: Microbiology 04/12/24 16:31 Gram Stain - Final Abdomen - Abdominal Routine Culture - Final Staphylococcus epidermidis 04/12/24 13:30 Blood Culture - Preliminary Blood - Venous No growth after 48 hours. 04/12/24 13:21 Blood Culture - Preliminary Blood - Venous No growth after 48 hours. Procedures Date of Service Date of Service: 04/15/24 Progress Note: A&P Assessment and plan (1) Abdominal fluid collection: Status: Acute Assessment and Plan: 38-year-old female status post repair of umbilical hernia with mesh and then couple days postop has seroma draining noninfected doing okay now has had a bowel movement on p.o. pain meds IV antibiotics going to switch over to p.o. on discharge. We are going to see BC today to just ensure her that things were trending in the normal fashion and it was so hopefully by tomorrow she will be in agreement to go home. Time Spent With Patient Time: Total time managing care of this patient today ____ minutes. Quality Stroke Does the patient have a stroke diagnosis?: No VTE Prior VTE?: No VTE Risk Level:: Surgical - moderate VTE Device Contraindication: N/A - Device Ordered VTE Drug Contraindication: N/A - Med Ordered
[2024-04-15] MEDS: Calcium Carbonate 750 MG TAB.CHEW PO (17:20)
[2024-04-15 19:11] VITALS: BP 136/67; PULSE 77; RESP 18; TEMP 36.9; O2SAT 95
[2024-04-15] MEDS: clonazePAM 1 MG TABLET PO (22:16)
[2024-04-16] MEDS: Piperacillin Sodium/Tazobactam 3.375 GM in 0.9 % Sodium Chloride 50 ML IV ×2 (00:21→06:03)
[2024-04-16 06:00] VITALS: BP 130/75; PULSE 57; RESP 16; TEMP 36.8; O2SAT 97
[2024-04-16] MEDS: oxyCODONE HCl Immed Release 5 MG TABLET PO ×2 (06:07→19:03)
[2024-04-16] MEDS: ondansetron HCL 4 MG/2 ML VIAL IVPUSH ×3 (06:08→20:16)
[2024-04-16] MEDS: clonazePAM 1 MG TABLET PO (06:35)
--- NOTE | 2024-04-16 07:57 | P.PNGS_ITS ---
Subjective Subjective Date of Service: 04/16/24 Interval history: Crying, worried about abdominal wound infection due to previous experience. Had BM yesterday. Tolerated the regular diet. Physical Exam 2 Vital Signs: Vital Signs: Last Vital Signs Temp 98.2 F 04/16/24 06:00 Pulse 57 04/16/24 06:00 Resp 16 04/16/24 06:00 BP 130/75 04/16/24 06:00 Pulse Ox 97 04/16/24 06:00 O2 Del Method Room Air 04/16/24 06:00 BMI result Body Mass Index 46.6 Const: General: well developed Nutritional Appearance: well nourished O rientation/consciousness: patient oriented x3 Limitations: no limitations Resp: Effort & Inspection: normal respiratory effort GI: Other: incision with a small amount of clear discharge, no erythema, tender around the incision. Skin: General skin exam: no rashes or lesions noted Neuro: General: patient oriented x3 Objective Data Active Medications Calcium Carbonate (Calcium Carbonate 750 Mg Tab.Chew) 750 mg PO Q4H PRN PRN Reason: Heartburn Last Admin: 04/15/24 17:20 Dose: 750 mg Documented By: JUAN Clonazepam (Clonazepam 1 Mg Tablet) 1 mg PO TID PRN PRN Reason: Anxiety Last Admin: 04/16/24 06:35 Dose: 1 mg Documented By: ELONELA Duloxetine HCl (Duloxetine Hcl 60 Mg Capsule.Dr) 60 mg PO DAILY [facility] Last Admin: 04/15/24 09:08 Dose: 60 mg Documented By: JUAN Enoxaparin Sodium (Enoxaparin Sodium 40 Mg/0.4 Ml Syringe) 40 mg SUBCUT Q24H [facility] Last Admin: 04/15/24 14:53 Dose: Not Given Documented By: JUAN Non-Admin Reason: Patient Refused Fluticasone Propionate (Fluticasone Propionate Nasal 16 Gm [place]) 1 spray NOSTRIL-B DAILY PRN PRN Reason: Allergy Symptoms Hydromorphone HCl (Hydromorphone Hcl 0.5 Mg/0.5 Ml Syringe) 0.5 mg IVPUSH Q3H PRN; Protocol PRN Reason: Pain, Severe (Pain Scale 7-10) Last Admin: 04/15/24 21:12 Dose: 0.5 mg Documented By: [email or web address] Piperacillin Sod/Tazobactam (Sod 3.375 gm/ Sodium Chloride) 50 mls @ 100 mls/hr IV Q6H [facility] Last Infusion: 04/16/24 06:38 Dose: Infused Documented By: LEONELA Magnesium Hydroxide (Milk Of Magnesia 30 Ml Oral.Susp) 30 ml PO DAILY PRN PRN Reason: Constipation Last Admin: 04/14/24 23:15 Dose: 30 ml Documented By: BASSAM Melatonin (Melatonin 3 Mg Tablet) 6 mg PO BEDTIME PRN PRN Reason: Insomnia Ondansetron HCl (Ondansetron Hcl 4 Mg/2 Ml Vial) 4 mg IVPUSH QID PRN PRN Reason: Nausea Last Admin: 04/16/24 06:08 Dose: 4 mg Documented By: LEONELA Oxycodone HCl (Oxycodone Hcl Immed Release 5 Mg Tablet) 5 mg PO Q6H PRN PRN Reason: Pain, Moderate(Pain Scale 4-6) Last Admin: 04/16/24 06:07 Dose: 5 mg Documented By: LEONELA Promethazine HCl (Promethazine Hcl 25 Mg/Ml Vial) 12.5 mg IM Q6H PRN PRN Reason: Nausea and Vomiting Last Admin: 04/14/24 20:01 Dose: 12.5 mg Documented By: BASSAM Sodium Chloride (0.9 % Sodium Chloride Flush 3 Ml Syringe) [facility] Last Admin: 04/15/24 20:23 Dose: 3 ml Documented By: BASSAM Labs 04/15/24 15:11 04/12/24 13:21 Labs: Laboratory Results - last 24 hr 04/15/24 15:11 MCV 88.0 MCH 30.3 MCHC 34.4 RDW 13.3 Plt Count 309 MPV 10.0 Immature Gran % (Auto) 0.5 H Neut % (Auto) 69.3 Lymph % (Auto) 20.8 [place] % (Auto) 7.7 Eos % (Auto) 1.4 Baso % (Auto) 0.3 Lymph # (Auto) 1.8 [place] # (Auto) 0.7 Eos # (Auto) 0.1 Baso # (Auto) 0.0 Abs Immat Gran (auto) 0.04 H Absolute Neuts (auto) 6.1 Absolute Nucleated RBC 0.000 Nucleated RBC % (auto) 0.0 Microbiology Microbiology Results: Microbiology 04/12/24 16:31 Gram Stain - Final Abdomen - Abdominal Routine Culture - Final Staphylococcus epidermidis Procedures Date of Service Date of Service: 04/16/24 Progress Note: A&P Assessment and plan (1) Incisional hernia: Status: Acute Plan Switch to Ibuprofen for pain Convert to oral antibiotics Repeat CT A/P today. Time Spent With Patient Time: Total time managing care of this patient today ____ minutes. No Severe Sepsis: No Severe Sepsis Quality Stroke Does the patient have a stroke diagnosis?: No VTE Prior VTE?: No VTE Risk Level:: Surgical - moderate VTE Device Contraindication: N/A - Device Ordered VTE Drug Contraindication: N/A - Med Ordered
[2024-04-16 07:58] VITALS: BP 136/65; PULSE 80; RESP 16; TEMP 37.2; O2SAT 98
[2024-04-16] MEDS: 0.9 % Sodium Chloride Flush 3 ML SYRINGE IVFLUSH ×3 (08:17→20:43)
[2024-04-16] MEDS: HYDROmorphone HCl 0.5 MG/0.5 ML SYRINGE IVPUSH ×4 (08:18→20:32)
[2024-04-16] MEDS: DULoxetine HCl 60 MG CAPSULE.DR PO (08:19)
[2024-04-16] MEDS: Sulfamethox/Trimeth 800/160 TABLET 1 TAB PO ×2 (08:35→20:12)
[2024-04-16] MEDS: iohexoL 350 MG/ML 75 ML INFUS..BTL 85 ML IV (10:34)
[2024-04-16 10:54] VITALS: BP 123/61; PULSE 58; RESP 16; TEMP 36.4; O2SAT 94
[2024-04-16 14:00] VITALS: BP 126/62; PULSE 93; RESP 16; TEMP 36.6; O2SAT 97
[2024-04-16] MEDS: Ibuprofen 400 MG TABLET PO ×2 (14:59→22:59)
[2024-04-16] MEDS: Enoxaparin Sodium 40 MG/0.4 ML SYRINGE SUBCUT (15:01)
[2024-04-16 22:00] VITALS: BP 140/71; PULSE 90; RESP 14; TEMP 36.7; O2SAT 97
[2024-04-17] MEDS: HYDROmorphone HCl 0.5 MG/0.5 ML SYRINGE IVPUSH ×7 (00:02→22:27)
[2024-04-17 03:26] VITALS: BP 125/59; PULSE 63; RESP 18; TEMP 36.6; O2SAT 98
[2024-04-17] MEDS: ondansetron HCL 4 MG/2 ML VIAL IVPUSH ×2 (06:20→20:35)
[2024-04-17] MEDS: Ibuprofen 400 MG TABLET PO ×3 (06:27→17:52)
--- NOTE | 2024-04-17 07:58 | PM.PNGS ---
Subjective Subjective Date of Service: 04/17/24 Interval history: Discussed findings of the CT abdomen and pelvis with the patient. She is scheduled for IR drainage had 830 this morning. Physical Exam Vital Signs: Vital Signs: Last Vital Signs Temp 97.8 F 04/17/24 03:26 Pulse 63 04/17/24 03:26 Resp 18 04/17/24 03:26 BP 125/59 L 04/17/24 03:26 Pulse Ox 98 04/17/24 03:26 O2 Del Method Room Air 04/17/24 03:26 BMI result Body Mass Index 46.6 Const: General: well developed Nutritional Appearance: well nourished Orientation/consciousness: patient oriented x3 Limitations: no limitations Resp: Effort & Inspection: normal respiratory effort GI: Other: incision with a small amount of clear discharge, no erythema, tender around the incision. Skin: General skin exam: no rashes or lesions noted Neuro: General: patient oriented x3 Objective Data Active Medications Calcium Carbonate (Calcium Carbonate 750 Mg Tab.Chew) 750 mg PO Q4H PRN PRN Reason: Heartburn Last Admin: 04/15/24 17:20 Dose: 750 mg Documented By: JUAN Clonazepam (Clonazepam 1 Mg Tablet) 1 mg PO TID PRN PRN Reason: Anxiety Last Admin: 04/16/24 06:35 Dose: 1 mg Documented By: LEONELA Duloxetine HCl (Duloxetine Hcl 60 Mg Capsule.Dr) 60 mg PO DAILY [facility] Last Admin: 04/16/24 08:19 Dose: 60 mg Documented By: RONI Enoxaparin Sodium (Enoxaparin Sodium 40 Mg/0.4 Ml Syringe) 40 mg SUBCUT Q24H [facility] Last Admin: 04/16/24 15:01 Dose: 40 mg Documented By: RONI Fluticasone Propionate (Fluticasone Propionate Nasal 16 Gm [place]) 1 spray NOSTRIL-B DAILY PRN PRN Reason: Allergy Symptoms Hydromorphone HCl (Hydromorphone Hcl 0.5 Mg/0.5 Ml Syringe) 0.5 mg IVPUSH Q3H PRN; Protocol PRN Reason: Pain, Severe (Pain Scale 7-10) Last Admin: 04/17/24 06:37 Dose: 0.5 mg Documented By: LEONELA Ibuprofen (Ibuprofen 400 Mg Tablet) 400 mg PO Q6H PRN PRN Reason: Pain, Mild (Pain Scale 1-3) Last Admin: 04/17/24 06:27 Dose: 400 mg Documented By: LEONELA Magnesium Hydroxide (Milk Of Magnesia 30 Ml Oral.Susp) 30 ml PO DAILY PRN PRN Reason: Constipation Last Admin: 04/14/24 23:15 Dose: 30 ml Documented By: BASSAM Melatonin (Melatonin 3 Mg Tablet) 6 mg PO BEDTIME PRN PRN Reason: Insomnia Ondansetron HCl (Ondansetron Hcl 4 Mg/2 Ml Vial) 4 mg IVPUSH QID PRN PRN Reason: Nausea Last Admin: 04/17/24 06:20 Dose: 4 mg Documented By: LEONELA Oxycodone HCl (Oxycodone Hcl Immed Release 5 Mg Tablet) 5 mg PO Q6H PRN PRN Reason: Pain, Moderate(Pain Scale 4-6) Last Admin: 04/16/24 19:03 Dose: 5 mg Documented By: LEONELA Promethazine HCl (Promethazine Hcl 25 Mg/Ml Vial) 12.5 mg IM Q6H PRN PRN Reason: Nausea and Vomiting Last Admin: 04/14/24 20:01 Dose: 12.5 mg Documented By: BASSAM Sodium Chloride (0.9 % Sodium Chloride Flush 3 Ml Syringe) [facility] Last Admin: 04/16/24 20:43 Dose: 3 ml Documented By: LEONELA Trimethoprim/Sulfamethoxazole (Sulfamethox/Trimeth 800/160 Tablet) 1 tab PO Q12H [facility] Last Admin: 04/16/24 20:12 Dose: 1 tab Documented By: LEONELA Labs 04/15/24 15:11 04/12/24 13:21 Labs: Laboratory Results - last 24 hr 04/12/24 04/12/24 04/12/24 13:21 14:33 19:10 MCV 86.9 87.1 MCH 30.0 29.8 MCHC 34.5 34.2 RDW 13.7 13.8 Plt Count 350 323 MPV 9.6 9.6 Immature Gran % (Auto) 0.7 H Neut % (Auto) 64.9 Lymph % (Auto) 24.2 [place] % (Auto) 7.7 Eos % (Auto) 2.1 Baso % (Auto) 0.4 Lymph # (Auto) 2.6 [place] # (Auto) 0.8 Eos # (Auto) 0.2 Baso # (Auto) 0.0 Abs Immat Gran (auto) 0.07 H Absolute Neuts (auto) 6.9 Absolute Nucleated RBC 0.000 0.000 Nucleated RBC % (auto) 0.0 0.0 ESR 54 H Anion Gap 14 Estim Creat Clear Calc 131.8 Estimated GFR > 60 Random Glucose 89 Lactic Acid 1.1 Calcium 9.0 Magnesium 2.1 Total Bilirubin 0.3 Direct Bilirubin 0.1 AST 35 H ALT 26 Alkaline Phosphatase 79 C-Reactive Protein 2.36 H Total Protein 7.8 Albumin 3.8 Urine Color Straw Urine Appearance Clear Urine pH 7.0 Ur Specific [place] 1.010 Urine Protein Negative Urine Glucose (UA) Negative Urine Ketones Negative Urine Blood Negative Urine Nitrite Negative Ur Leukocyte Esterase Negative Urine Test NEGATIVE 04/13/24 08:38 MCV 88.0 MCH 29.7 MCHC 33.8 RDW 13.7 Plt Count 352 MPV 9.7 Immature Gran % (Auto) 0.5 H Neut % (Auto) 71.5 Lymph % (Auto) 18.9 L [place] % (Auto) 7.5 Eos % (Auto) 1.3 Baso % (Auto) 0.3 Lymph # (Auto) 1.9 [place] # (Auto) 0.8 Eos # (Auto) 0.1 Baso # (Auto) 0.0 Abs Immat Gran (auto) 0.05 H Absolute Neuts (auto) 7.3 Absolute Nucleated RBC 0.000 Nucleated RBC % (auto) 0.0 ESR Anion Gap Estim Creat Clear Calc Estimated GFR Random Glucose Lactic Acid Calcium Magnesium Total Bilirubin Direct Bilirubin AST ALT Alkaline Phosphatase C-Reactive Protein Total Protein Albumin Urine Color Urine Appearance Urine pH Ur Specific [place] Urine Protein Urine Glucose (UA) Urine Ketones Urine Blood Urine Nitrite Ur Leukocyte Esterase Urine Test Procedures Date of Service Date of Service: 04/17/24 Progress Note: A&P Assessment and plan (1) Incisional hernia: Status: Acute (2) Abdominal fluid collection: Status: Acute Plan Enlarging fluid collection in the abdominal wall noted by repeat CT. She is scheduled for IR drainage later today. Further management based on findings. Continue antibiotics as prescribed. Time Spent With Patient Time: Total time managing care of this patient today ____ minutes. Quality Stroke Does the patient have a stroke diagnosis?: No VTE Prior VTE?: No VTE Risk Level:: Surgical - moderate VTE Device Contraindication: N/A - Device Ordered VTE Drug Contraindication: N/A - Med Ordered
[2024-04-17 08:03] VITALS: BP 120/64; PULSE 80; RESP 16; TEMP 36.6; O2SAT 96
[2024-04-17] MEDS: Lidocaine HCl 1 % MPF 30 ML VIAL SUBCUT (09:25)
--- NOTE | 2024-04-17 09:37 | PCN2_ITS ---
Brief Operative Note Date of procedure: 04/17/24 Pre-op diagnosis: Abdominal wall seroma after ventral hernia repair Post-op diagnosis: same Procedure: US drainage of abdominal wall seroma 10 fr drain placed. 60 cc divina fluid aspirated and sent for culture. No imm ediate complications. Anesthesia: local
[2024-04-17] MEDS: Sulfamethox/Trimeth 800/160 TABLET 1 TAB PO ×2 (09:50→20:35)
[2024-04-17] MEDS: DULoxetine HCl 60 MG CAPSULE.DR PO (09:51)
[2024-04-17] MEDS: oxyCODONE HCl Immed Release 5 MG TABLET PO (13:39)
[2024-04-17 14:00] VITALS: BP 134/64; PULSE 85; RESP 16; TEMP 36.3; O2SAT 96
[2024-04-17] MEDS: Enoxaparin Sodium 40 MG/0.4 ML SYRINGE SUBCUT (15:34)
[2024-04-17] MEDS: 0.9 % Sodium Chloride Flush 3 ML SYRINGE IVFLUSH ×2 (15:42→20:36)
[2024-04-17 18:59] VITALS: BP 153/74; PULSE 98; RESP 20; TEMP 36.9; O2SAT 97
[2024-04-17] MEDS: clonazePAM 1 MG TABLET PO (23:33)
[2024-04-18] MEDS: HYDROmorphone HCl 0.5 MG/0.5 ML SYRINGE IVPUSH ×7 (01:55→22:56)
--- NOTE | 2024-04-18 02:28 | PC.NURSE ---
Pt alert and oriented, still endorsing lower abd pain feeling gassy and pressure, DADA drain noted on the mid lower abd, dressing CDI, prn Dilaudid given with effect but short term, encouraged to ambulate,pt was noted to be anxious related to her pain, prn Clonazepam po given, with good effect, health status teaching reiterated and frequent encouragement done.
[2024-04-18 04:02] VITALS: BP 129/59; PULSE 71; RESP 18; TEMP 36.3; O2SAT 97
[2024-04-18] MEDS: ondansetron HCL 4 MG/2 ML VIAL IVPUSH ×2 (05:34→11:31)
[2024-04-18 07:16] VITALS: BP 132/59; PULSE 54; RESP 16; TEMP 36; O2SAT 96
[2024-04-18] MEDS: Sulfamethox/Trimeth 800/160 TABLET 1 TAB PO ×2 (07:28→19:41)
[2024-04-18] MEDS: DULoxetine HCl 60 MG CAPSULE.DR PO (07:28)
[2024-04-18] MEDS: Ibuprofen 400 MG TABLET PO ×2 (07:29→14:37)
[2024-04-18] MEDS: 0.9 % Sodium Chloride Flush 3 ML SYRINGE IVFLUSH ×2 (07:34→14:38)
[2024-04-18] MEDS: oxyCODONE HCl Immed Release 5 MG TABLET PO (08:55)
--- NOTE | 2024-04-18 09:37 | P.PNGS_ITS ---
Subjective Subjective Date of Service: 04/18/24 Interval history: Reports she had a difficulty night due to pain at the drain site. Has been requiring IV dilaudid around the clock to remain comfortable. Reports some bloating. Last BM earlier this week. Passing flatus. Physical Exam 2 Vital Signs: Vital Signs: Last Vital Signs Temp 96.8 F 04/18/24 07:16 Pulse 54 04/18/24 07:16 Resp 16 04/18/24 07:16 BP 132/59 L 04/18/24 07:16 Pulse Ox 96 04/18/24 07:16 O2 Del Method Room Air 04/18/24 07:16 BMI result Body Mass Index 46.6 Const: General: comfortable, no acute distress and alert O rientation/consciousness: patient oriented x3 Resp: Effort & Inspection: normal respiratory effort GI: Other: bulb with scant serosanguineous drainage umbilical incision clean appearing, no surrounding erythema or edema Skin: General skin exam: no rashes or lesions noted Neuro: General: patient oriented x3 and moves all extremities Objective Data Active Medications Calcium Carbonate (Calcium Carbonate 750 Mg Tab.Chew) 750 mg PO Q4H PRN PRN Reason: Heartburn Last Admin: 04/15/24 17:20 Dose: 750 mg Documented By: JUAN Clonazepam (Clonazepam 1 Mg Tablet) 1 mg PO TID PRN PRN Reason: Anxiety Last Admin: 04/17/24 23:33 Dose: 1 mg Documented By: SHAILESH Duloxetine HCl (Duloxetine Hcl 60 Mg Capsule.Dr) 60 mg PO DAILY [facility] Last Admin: 04/18/24 07:28 Dose: 60 mg Documented By: ADNIAL Enoxaparin Sodium (Enoxaparin Sodium 40 Mg/0.4 Ml Syringe) 40 mg SUBCUT Q24H [facility] Last Admin: 04/17/24 15:34 Dose: 40 mg Documented By: KAI Fluticasone Propionate (Fluticasone Propionate Nasal 16 Gm [place]) 1 spray NOSTRIL-B DAILY PRN PRN Reason: Allergy Symptoms Hydromorphone HCl (Hydromorphone Hcl 0.5 Mg/0.5 Ml Syringe) 0.5 mg IVPUSH Q3H PRN; Protocol PRN Reason: Pain, Severe (Pain Scale 7-10) Last Admin: 04/18/24 09:02 Dose: 0.5 mg Documented By: JANA Ibuprofen (Ibuprofen 400 Mg Tablet) 400 mg PO Q6H PRN PRN Reason: Pain, Mild (Pain Scale 1-3) Last Admin: 04/18/24 07:29 Dose: 400 mg Documented By: DANIAL Magnesium Hydroxide (Milk Of Magnesia 30 Ml Oral.Susp) 30 ml PO DAILY PRN PRN Reason: Constipation Last Admin: 04/14/24 23:15 Dose: 30 ml Documented By: BASSAM Melatonin (Melatonin 3 Mg Tablet) 6 mg PO BEDTIME PRN PRN Reason: Insomnia Ondansetron HCl (Ondansetron Hcl 4 Mg/2 Ml Vial) 4 mg IVPUSH QID PRN PRN Reason: Nausea Last Admin: 04/18/24 05:34 Dose: 4 mg Documented By: SHAILESH Oxycodone HCl (Oxycodone Hcl Immed Release 5 Mg Tablet) 5 mg PO Q6H PRN PRN Reason: Pain, Moderate(Pain Scale 4-6) Last Admin: 04/18/24 08:55 Dose: 5 mg Documented By: JANA Promethazine HCl (Promethazine Hcl 25 Mg/Ml Vial) 12.5 mg IM Q6H PRN PRN Reason: Nausea and Vomiting Last Admin: 04/14/24 20:01 Dose: 12.5 mg Documented By: BASSAM Sodium Chloride (0.9 % Sodium Chloride Flush 3 Ml Syringe) [facility] Last Admin: 04/18/24 07:34 Dose: 3 ml Documented By: DANIAL Trimethoprim/Sulfamethoxazole (Sulfamethox/Trimeth 800/160 Tablet) 1 tab PO Q12H [facility] Last Admin: 04/18/24 07:28 Dose: 1 tab Documented By: DANIAL Labs 04/15/24 15:11 04/12/24 13:21 Microbiology Microbiology Results: Microbiology 04/12/24 13:30 Blood Culture - Final Blood - Venous No growth after 5 days. 04/12/24 13:21 Blood Culture - Final Blood - Venous No growth after 5 days. 04/17/24 08:45 Gram Stain - Final Abdominal Fluid Procedures Date of Service Date of Service: 04/18/24 Progress Note: A&P Assessment and plan (1) Abdominal fluid collection: Status: Acute Plan Underwent US drainage of abdominal wall seroma, 10 fr drain placed and 60 cc divina fluid aspirated. Reporting difficulty with pain. Drainage has been low overnight. Cont pain control for now. Will add bowel regimen. Cont OOB/ambulation and IS use. Patient comfortable with plan. Will reassess later today for possible dc to home on oral abx if more comfortable. Time Spent With Patient Time: Total time managing care of this patient today ____ minutes. Quality Stroke Does the patient have a stroke diagnosis?: No VTE Prior VTE?: No VTE Risk Level:: Surgical - moderate VTE Device Contraindication: N/A - Device Ordered VTE Drug Contraindication: N/A - Med Ordered
--- NOTE | 2024-04-18 09:39 | PC.NURSE ---
Pt. medicated with Ibuprofen at 0729 for pain 11/14 per patient request.
[2024-04-18] MEDS: polyethylene glycoL 3350 17 GM POWD.PACK PO (10:18)
[2024-04-18] MEDS: Docusate Sodium 100 MG CAPSULE PO ×2 (10:19→19:41)
[2024-04-18] MEDS: clonazePAM 1 MG TABLET PO ×2 (10:28→21:40)
--- NOTE | 2024-04-18 12:54 | MHC.CM.PN ---
PT NOT DISCUSSED AT ROUNDS PT IS SURGICAL PT
[2024-04-18 14:00] VITALS: BP 128/60; PULSE 69; RESP 16; TEMP 36.9; O2SAT 93
[2024-04-18] MEDS: traMADoL HCL 50 MG TABLET 25 MG PO ×2 (14:37→22:26)
[2024-04-18] MEDS: Enoxaparin Sodium 40 MG/0.4 ML SYRINGE SUBCUT (14:39)
[2024-04-18 15:32] VITALS: BP 127/69; PULSE 77; RESP 16; TEMP 36.8; O2SAT 97
[2024-04-18 21:57] VITALS: BP 120/66; PULSE 67; RESP 18; TEMP 36.3; O2SAT 93
[2024-04-19] MEDS: 0.9 % Sodium Chloride Flush 3 ML SYRINGE IVFLUSH ×3 (02:55→14:54)
[2024-04-19] MEDS: HYDROmorphone HCl 0.5 MG/0.5 ML SYRINGE IVPUSH ×6 (02:58→21:20)
[2024-04-19 06:00] VITALS: BP 138/88; PULSE 87; RESP 18; TEMP 36.6; O2SAT 99
[2024-04-19 07:22] VITALS: BP 139/75; PULSE 98; RESP 16; TEMP 37.1; O2SAT 98
[2024-04-19] MEDS: clonazePAM 1 MG TABLET PO ×3 (07:25→21:55)
[2024-04-19] MEDS: ondansetron HCL 4 MG/2 ML VIAL IVPUSH (07:25)
[2024-04-19] MEDS: Docusate Sodium 100 MG CAPSULE PO ×2 (07:44→20:10)
[2024-04-19] MEDS: DULoxetine HCl 60 MG CAPSULE.DR PO (07:44)
[2024-04-19] MEDS: Sulfamethox/Trimeth 800/160 TABLET 1 TAB PO ×2 (07:44→20:10)
[2024-04-19] MEDS: polyethylene glycoL 3350 17 GM POWD.PACK PO (07:45)
[2024-04-19] MEDS: traMADoL HCL 50 MG TABLET 25 MG PO (10:14)
[2024-04-19] MEDS: Ibuprofen 400 MG TABLET PO ×3 (10:14→21:26)
[2024-04-19 10:34] VITALS: BP 135/60; PULSE 96; RESP 16; TEMP 36.6; O2SAT 96
--- NOTE | 2024-04-19 11:07 | P.PNGS_ITS ---
Subjective Subjective Date of Service: 04/19/24 Interval history: Had difficult night again with pain. Has multiple complaints with pain at the drain site and then also c/o periumbilical pain. No BM for 3 days. Has been trying to get OOB and ambulate to bathroom when pain is controlled. Physical Exam 2 Vital Signs: Vital Signs: Last Vital Signs Temp 97.9 F 04/19/24 10:34 Pulse 96 04/19/24 10:34 Resp 16 04/19/24 10:34 BP 135/60 04/19/24 10:34 Pulse Ox 96 04/19/24 10:34 O2 Del Method Room Air 04/19/24 10:34 BMI result Body Mass Index 46.6 Const: General: well developed, alert and anxious; No acute distress O rientation/consciousness: patient oriented x3 Resp: Effort & Inspection: normal respiratory effort GI: Other: DADA drain with scant serosanguineous output, tenderness at drain site and periumbilically, no surrounding erythema or increased warmth Skin: General skin exam: no rashes or lesions noted Neuro: General: patient oriented x3 and moves all extremities Objective Data Active Medications Acetaminophen (Acetaminophen 325 Mg Tablet) 650 mg PO Q6H [facility] Calcium Carbonate (Calcium Carbonate 750 Mg Tab.Chew) 750 mg PO Q4H PRN PRN Reason: Heartburn Last Admin: 04/15/24 17:20 Dose: 750 mg Documented By: JUAN Clonazepam (Clonazepam 1 Mg Tablet) 1 mg PO TID PRN PRN Reason: Anxiety Last Admin: 04/19/24 07:25 Dose: 1 mg Documented By: JUAN Docusate Sodium (Docusate Sodium 100 Mg Capsule) 100 mg PO BID [facility] Last Admin: 04/19/24 07:44 Dose: 100 mg Documented By: JUAN Duloxetine HCl (Duloxetine Hcl 60 Mg Capsule.Dr) 60 mg PO DAILY [facility] Last Admin: 04/19/24 07:44 Dose: 60 mg Documented By: JUAN Enoxaparin Sodium (Enoxaparin Sodium 40 Mg/0.4 Ml Syringe) 40 mg SUBCUT Q24H [facility] Last Admin: 04/18/24 14:39 Dose: 40 mg Documented By: JANA Fluticasone Propionate (Fluticasone Propionate Nasal 16 Gm [place]) 1 spray NOSTRIL-B DAILY PRN PRN Reason: Allergy Symptoms Hydromorphone HCl (Hydromorphone Hcl 0.5 Mg/0.5 Ml Syringe) 0.5 mg IVPUSH Q3H PRN; Protocol PRN Reason: Pain, Severe (Pain Scale 7-10) Last Admin: 04/19/24 07:25 Dose: 0.5 mg Documented By: JUAN Ibuprofen (Ibuprofen 400 Mg Tablet) 400 mg PO Q6H [facility] Lactulose (Lactulose 20 Gm/30 Ml Solution) 30 gm PO DAILY PRN PRN Reason: Constipation Magnesium Hydroxide (Milk Of Magnesia 30 Ml Oral.Susp) 30 ml PO DAILY PRN PRN Reason: Constipation Last Admin: 04/14/24 23:15 Dose: 30 ml Documented By: BASSAM Melatonin (Melatonin 3 Mg Tablet) 6 mg PO BEDTIME PRN PRN Reason: Insomnia Ondansetron HCl (Ondansetron Hcl 4 Mg/2 Ml Vial) 4 mg IVPUSH QID PRN PRN Reason: Nausea Last Admin: 04/19/24 07:25 Dose: 4 mg Documented By: JUAN Polyethylene Glycol (Polyethylene Glycol 3350 17 Gm Powd.Pack) 17 gm PO DAILY [facility] Last Admin: 04/19/24 07:45 Dose: 17 gm Documented By: JUAN Promethazine HCl (Promethazine Hcl 25 Mg/Ml Vial) 12.5 mg IM Q6H PRN PRN Reason: Nausea and Vomiting Last Admin: 04/14/24 20:01 Dose: 12.5 mg Documented By: BASSAM Sodium Biphosphate/Sodium Phosphate (Sodium Phosphate,[place]-Dibasic 133 Ml Enema) 133 ml [place] ONCE PRN PRN Reason: constipation Sodium Chloride (0.9 % Sodium Chloride Flush 3 Ml Syringe) 3 ml IVFLUSH QSHICHI [facility] Last Admin: 04/19/24 07:45 Dose: 3 ml Documented By: JUAN Tramadol HCl (Tramadol Hcl 50 Mg Tablet) 25 mg PO Q6H PRN PRN Reason: Pain, Moderate(Pain Scale 4-6) Last Admin: 04/19/24 10:14 Dose: 25 mg Documented By: JUAN Trimethoprim/Sulfamethoxazole (Sulfamethox/Trimeth 800/160 Tablet) 1 tab PO Q12H [facility] Last Admin: 04/19/24 07:44 Dose: 1 tab Documented By: JUAN Labs 04/15/24 15:11 04/12/24 13:21 Microbiology Microbiology Results: Microbiology 04/17/24 08:45 Gram Stain - Final Abdominal Fluid Routine Culture - Preliminary No growth to date. Anaerobic Culture - Preliminary No growth to date. Procedures Date of Service Date of Service: 04/19/24 Progress Note: A&P Assessment and plan (1) Abdominal fluid collection: Status: Acute Plan Underwent US drainage of abdominal wall seroma 04/17/24, 10 fr drain placed and 60 cc divina fluid aspirated at that time. 20cc drainage in the past 24 hrs. Continues to report difficulty with pain. Will attempt to put bulb off suction to see if this aids. Add motrin, tylenol ATC. On colace, miralax- will add lactulose and enema for bowel regimen as pain appears to be colicky and last CT shows transverse/left colon FOS. Cont OOB/ambulation and IS use. Patient comfortable with plan. Time Spent With Patient Time: Total time managing care of this patient today ____ minutes. Quality Stroke Does the patient have a stroke diagnosis?: No VTE Prior VTE?: No VTE Risk Level:: Surgical - moderate VTE Device Contraindication: N/A - Device Ordered VTE Drug Contraindication: N/A - Med Ordered
[2024-04-19] MEDS: Acetaminophen 325 MG TABLET 650 MG PO ×3 (12:22→22:35)
[2024-04-19 14:00] VITALS: BP 129/59; PULSE 80; RESP 18; TEMP 37; O2SAT 94
[2024-04-19] MEDS: Enoxaparin Sodium 40 MG/0.4 ML SYRINGE SUBCUT (14:53)
--- NOTE | 2024-04-19 17:48 | PC.NURSE ---
Pt complaining of increased pain, anxiety. Dr. Trotter in to see patient. Medicated with clonazepam and dilaudid. Ibuprofen and Acetaminophen changed to scheduled. DADA drain placed off suction. Pain seems improved.
[2024-04-19 21:43] VITALS: BP 116/56; PULSE 77; RESP 16; TEMP 36.2; O2SAT 95
[2024-04-20] MEDS: HYDROmorphone HCl 0.5 MG/0.5 ML SYRINGE IVPUSH ×2 (01:55→07:44)
[2024-04-20] MEDS: ondansetron HCL 4 MG/2 ML VIAL IVPUSH (02:06)
[2024-04-20] MEDS: Acetaminophen 325 MG TABLET 650 MG PO ×2 (04:45→09:18)
[2024-04-20] MEDS: Ibuprofen 400 MG TABLET PO ×2 (04:46→09:18)
[2024-04-20 04:48] VITALS: BP 154/90; PULSE 65; RESP 16; TEMP 36; O2SAT 99
--- NOTE | 2024-04-20 04:52 | PC.NURSE ---
DADA drainage 2ml for 12 hrs 7P-7A. Drain bulb slightly deflated per patients wishes.
[2024-04-20 07:17] VITALS: BP 105/57; PULSE 60; RESP 18; TEMP 36; O2SAT 98
[2024-04-20] MEDS: DULoxetine HCl 60 MG CAPSULE.DR PO (07:44)
[2024-04-20] MEDS: polyethylene glycoL 3350 17 GM POWD.PACK PO (07:44)
[2024-04-20] MEDS: Docusate Sodium 100 MG CAPSULE PO (07:44)
[2024-04-20] MEDS: Sulfamethox/Trimeth 800/160 TABLET 1 TAB PO (07:44)
[2024-04-20] MEDS: 0.9 % Sodium Chloride Flush 3 ML SYRINGE IVFLUSH (07:45)
--- NOTE | 2024-04-20 08:10 | P.PNGS_ITS ---
Subjective Subjective Date of Service: 04/20/24 Interval history: Patient feels improved this morning with less abdominal pain. No BM yet. No fever or chills. Really wants to go home IR drain with minimal serous output only. Patient reports pain from the skin suture. Physical Exam 2 Vital Signs: Vital Signs: Last Vital Signs Temp 96.8 F 04/20/24 07:17 Pulse 60 04/20/24 07:17 Resp 18 04/20/24 07:17 BP 105/57 L 04/20/24 07:17 Pulse Ox 98 04/20/24 07:17 O2 Del Method Room Air 04/20/24 07:17 BMI result Body Mass Index 46.6 Const: General: no acute distress Nutritional Appearance: well nourished Orientation/consciousness: patient oriented x3 Limitations: no limitations Resp: Effort & Inspection: normal respiratory effort, no audible wheezes, no cough and no respiratory distress GI: Other: soft, non-distended, umbilical incision with minimal discharge, minimal output from IR drain. Skin: Other: Warm and dry, no erythema in abdominal wall. Neuro: General: patient oriented x3 Extrem: Other: no edema Objective Data Active Medications Acetaminophen (Acetaminophen 325 Mg Tablet) 650 mg PO Q6H [facility] Last Admin: 04/20/24 04:45 Dose: 650 mg Documented By: NATALIA Calcium Carbonate (Calcium Carbonate 750 Mg Tab.Chew) 750 mg PO Q4H PRN PRN Reason: Heartburn Last Admin: 04/15/24 17:20 Dose: 750 mg Documented By: JUAN Clonazepam (Clonazepam 1 Mg Tablet) 1 mg PO TID PRN PRN Reason: Anxiety Last Admin: 04/19/24 21:55 Dose: 1 mg Documented By: NATALIA Docusate Sodium (Docusate Sodium 100 Mg Capsule) 100 mg PO BID [facility] Last Admin: 04/20/24 07:44 Dose: 100 mg Documented By: JUAN Duloxetine HCl (Duloxetine Hcl 60 Mg Capsule.) 60 mg PO DAILY [facility] Last Admin: 04/20/24 07:44 Dose: 60 mg Documented By: JUAN Enoxaparin Sodium (Enoxaparin Sodium 40 Mg/0.4 Ml Syringe) 40 mg SUBCUT Q24H [facility] Last Admin: 04/19/24 14:53 Dose: 40 mg Documented By: JUAN Fluticasone Propionate (Fluticasone Propionate Nasal 16 Gm [place]) 1 spray NOSTRIL-B DAILY PRN PRN Reason: Allergy Symptoms Hydromorphone HCl (Hydromorphone Hcl 0.5 Mg/0.5 Ml Syringe) 0.5 mg IVPUSH Q3H PRN; Protocol PRN Reason: Pain, Severe (Pain Scale 7-10) Last Admin: 04/20/24 07:44 Dose: 0.5 mg Documented By: JUAN Ibuprofen (Ibuprofen 400 Mg Tablet) 400 mg PO Q6H [facility] Last Admin: 04/20/24 04:46 Dose: 400 mg Documented By: NATALIA Magnesium Hydroxide (Milk Of Magnesia 30 Ml Oral.Susp) 30 ml PO DAILY PRN PRN Reason: Constipation Last Admin: 04/14/24 23:15 Dose: 30 ml Documented By: BASSAM Melatonin (Melatonin 3 Mg Tablet) 6 mg PO BEDTIME PRN PRN Reason: Insomnia Ondansetron HCl (Ondansetron Hcl 4 Mg/2 Ml Vial) 4 mg IVPUSH QID PRN PRN Reason: Nausea Last Admin: 04/20/24 02:06 Dose: 4 mg Documented By: NATALIA Polyethylene Glycol (Polyethylene Glycol 3350 17 Gm Powd.Pack) 17 gm PO DAILY [facility] Last Admin: 04/20/24 07:44 Dose: 17 gm Documented By: JUAN Promethazine HCl (Promethazine Hcl 25 Mg/Ml Vial) 12.5 mg IM Q6H PRN PRN Reason: Nausea and Vomiting Last Admin: 04/14/24 20:01 Dose: 12.5 mg Documented By: BASSAM Sodium Biphosphate/Sodium Phosphate (Sodium Phosphate,[place]-Dibasic 133 Ml Enema) 133 ml [place] ONCE PRN PRN Reason: constipation Sodium Chloride (0.9 % Sodium Chloride Flush 3 Ml Syringe) 3 ml IVFLUSH [facility] Last Admin: 04/20/24 07:45 Dose: 3 ml Documented By: JUAN Tramadol HCl (Tramadol Hcl 50 Mg Tablet) 25 mg PO Q6H PRN PRN Reason: Pain, Moderate(Pain Scale 4-6) Last Admin: 04/19/24 10:14 Dose: 25 mg Documented By: JUAN Trimethoprim/Sulfamethoxazole (Sulfamethox/Trimeth 800/160 Tablet) 1 tab PO Q12H [facility] Last Admin: 04/20/24 07:44 Dose: 1 tab Documented By: JUAN Labs 04/15/24 15:11 04/12/24 13:21 Microbiology Microbiology Results: Microbiology 04/17/24 08:45 Gram Stain - Final Abdominal Fluid Routine Culture - Final No growth after 2 days Anaerobic Culture - Preliminary No growth to date. Procedures Date of Service Date of Service: 04/20/24 Progress Note: A&P Assessment and plan (1) Abdominal fluid collection: Status: Acute (2) Incisional hernia: Status: Acute Plan Overall, patient is much improved with decreased abdominal pain. The main pain is from the drain insertion site and the suture. The drain has minimal output of serous fluid. Fluid cultures reveal no growth after 48 hours. Plan discharge to home. Continue antibiotics for 5 more days then stop. Encouraged OOB and ambulation at home, may shower. Will give MagCitrate today to help with BMs Follow up in office in one week. Patient understands and agrees with the plan. Time Spent With Patient Time: Total time managing care of this patient today ____ minutes. Quality Stroke Does the patient have a stroke diagnosis?: No VTE Prior VTE?: No VTE Risk Level:: Surgical - moderate VTE Device Contraindication: N/A - Device Ordered VTE Drug Contraindication: N/A - Med Ordered
--- NOTE | 2024-04-20 08:37 | MHC.CM.PN ---
PT TO DC HOME TODAY WITH NO SERVICES VIA PRIVATE TRANSPORT
[2024-04-20] MEDS: Magnesium Citrate 300 ML SOLUTION PO (09:18)
[2024-04-20] MEDS: traMADoL HCL 50 MG TABLET 25 MG PO (09:26)
[2024-04-20 10:15] VITALS: BP 138/83; PULSE 99; RESP 16; TEMP 36.3; O2SAT 97
--- NOTE | 2024-04-20 13:06 | P.DS_ITS ---
DS: Providers Provider Date of Service: 04/20/24 Date of admission: 04/12/24 14:20 Date of discharge: 04/20/24 Primary care physician: Cecile Sheldon NP Attending physician on admission: Kentrell Trotter Attending physician on discharge: Kentrell Trotter DS: Diagnosis Discharge Diagnosis (1) Abdominal fluid collection: Status: Acute (2) Incisional hernia: Status: Acute DS: Summary Hospital Course Hospital Course: HPI AT ADMISSION: Radha Honeycutt is a 38 year old female presenting with complaints of periumbilical abdominal pain following repair of an umbilical hernia performed on 04/04/2024 as a short-stay surgery. She reports having drainage of fluid through her incision over the past several days with associated nausea and vomiting. She presented to the emergency department at [facility] today at which time a CT abdomen and pelvis was performed. This revealed a fluid collection around the umbilical incision possibly seroma or abscess. She was subsequently transferred to [facility] for further management. Currently she reports pain surrounding the incision as well as nausea/vomiting. HOSPITAL COURSE: She was admitted to the surgical service for IV antibiotics and further wound management. She initially had improvement in her symptoms and her umbilical incision remained clean appearing with serous output. She however had worsening pain and therefore repeat CT scan abd/pelvis was obtained and the radiologist felt the supraumbilical seroma increased in size and was more organized appearing. Discussed proceeding with IR drainage of the collection given her increasing pain and she agreed. On 04/17/24, US drainage of abdominal wall seroma was performed and 60 cc divina fluid aspirated and sent for culture, 10 fr drain placed. She tolerated this well. Her pain improved slowly following the drainage. She had more colicky type pain not at the repair or seroma site and this was attributed to constipation and she was started on bowel regimen, mag citrate. On the day of discharge, she was tolerating a solid diet, her main pain was from the drain insertion site and the suture and it had minimal output of serous fluid and was therefore removed uneventfully. Fluid cultures revealed no growth after 48 hours. She felt ready for discharge. She was discharged to home on 04/20/24 in stable condition on PO Bactrim for 5 more days. She is to follow up in the office in 1 week. Status at Discharge Functional status at discharge: independent ambulation Overall status at discharge: patient is progressing back to baseline Time Attestation Discharge Coordination Time (in mins): 35 Quality: Safe Use of Opioids Does Pt have an Active Cancer Diagnosis on the Problem List?: No Quality: Stroke Does the patient have a stroke diagnosis?: No Physical Exam Vital Signs: Vital Signs: Last Vital Signs Temp 97.4 F 04/20/24 10:15 Pulse 99 04/20/24 10:15 Resp 16 04/20/24 10:15 BP 138/83 04/20/24 10:15 Pulse Ox 97 04/20/24 10:15 O2 Del Method Room Air 04/20/24 10:15 BMI result Body Mass Index 46.6 Const: General: comfortable, no acute distress, alert and anxious Resp: Effort & Inspection: normal respiratory effort GI: Other: umbilical incision clean appearing without significant drainage IR drain with scant serous, drain removed Inspection: No distended Palpation (GI): Soft to palpation, Tenderness to palpation present (GI) (mild at drain insertion site ) and no guarding Discharge Plan Discharge Anticipated Discharge Date/Time: 04/20/24 08:05 Patient Disposition: Home, Self-Care Discharge Diagnosis: abdominal fluid collection Referrals: Kentrell Trotter MD [Physician] - 1 Week Cecile Sheldon NP [Primary Care Provider] - 1 Week Discharge Medications: New sulfamethoxazole-trimethoprim [Bactrim DS] 800-160 mg tablet 1 tab PO BID Qty: 10 0RF Continued clonazepam 1 mg tablet 1 mg PO TID PRN (Reason: Anxiety) ibuprofen 600 mg tablet 600 mg PO QID PRN (Reason: Pain) fluticasone propionate 50 mcg/actuation [place],Suspension 1 spray INTRANASAL DAILY PRN (Reason: Allergy Symptoms) Rx Instructions: administer into each nostril Liletta 20.4 mcg/24 hr (8 yrs) 52 mg Intrauterine Device 20.4 mcg INTRAUTERINE DIRECTED Rx Instructions: Every 8 years ondansetron HCl 4 mg tablet 4 mg PO Q8H PRN (Reason: nausea and vomiting) Qty: 20 0RF duloxetine 60 mg capsule,delayed release(DR/EC) 60 mg PO DAILY No Action naproxen 500 mg tablet 500 mg PO BID PRN (Reason: pain) Qty: 20 0RF Rx Instructions: do not take if using ibuprofen tramadol 50 mg tablet 50 mg PO Q8H PRN (Reason: pain (scale score 7-10)) Qty: 15 0RF Discharge Orders: Discharge Order (Routine); Ordered 04/20/24 Ordered By: Kentrell Trotter Diet: Advance to usual diet Activity on Discharge: No heavy lifting Stand Alone Forms: Patient Portal Discharge page Print Language: Chinese Activity Restrictions/Additional Instructions: Follow up in office with Dr. Trotter in 1 week. ([phone]) Call Your Doctor If: -Your temperature exceeds 101.5? F -You experience excessive pain or swelling -You have an unexpected reaction to medication -You have excessive bleeding -You experience continued vomiting/nausea -Your incision begins to separate -Your incision shows signs of infection such as increased redness, swelling, excessive pain, drainage (light blood or clear fluid is normal) or heat Care Plan Goals: Return to baseline health and resume normal activities following recovery period. Health Concerns: s/p repair of incisional hernia fluid collection Plan of Treatment: IV abx transitioned to oral abx F/u in office Assessment: Improved Discharge Date/Time: 04/20/24 10:12
== END 2024-04-20 10:12 | disposition home or self-care (01) | DRG 920 ==
LOC: HO.ED 13:52 → HO.EDOVER 14:21 → HO.S3 04-13 07:40
PROVIDERS: Physician Assistant; Radiology Vascular & Interventional Radiology; Surgery; Admitting Provider Surgery; Emergency Provider Emergency Medicine; PCP Nurse Practitioner; Visit Provider Surgery
DX: L76.34 Postprocedural seroma of skin and subcutaneous tissue following other procedure (principal); Z68.42 Body mass index [BMI] 45.0-49.9, adult; E66.01 Morbid (severe) obesity due to excess calories; Z87.891 Personal history of nicotine dependence; Z79.899 Other long term (current) drug therapy
CPT/HCPCS: 10030; 36415; 74177; 80048; 80076; 81003; 81025; 83605; 83735; 85025; 85027; 85652; 86140; 87040; 87070; 87073; 87077; 87186; 87205; 99285; J0131; J1171; J1650; J2003; J2405; J2543; J2550; J7120; Q9967

== ENCOUNTER 2024-04-12 14:20 | Outpatient (BNV) | payer OTHER, SELFPAY | END 2024-04-16 10:26 | PROVIDERS: Admitting Provider Surgery; Emergency Provider Emergency Medicine; PCP Nurse Practitioner; Visit Provider Radiology Diagnostic Radiology | DX: K91.872 Postprocedural seroma of a digestive system organ or structure following a digestive system procedure (principal) | CPT/HCPCS: 74177 ==

== ENCOUNTER → 2024-04-12 14:20 | Outpatient (BNV) | payer OTHER, SELFPAY | PROVIDERS: Admitting Provider Surgery; Emergency Provider Emergency Medicine; PCP Nurse Practitioner; Visit Provider Surgery | DX: R18.8 Other ascites (principal) | CPT/HCPCS: 99222; 99232 ==

== ENCOUNTER → 2024-04-12 14:20 | Outpatient (BNV) | payer OTHER, SELFPAY | PROVIDERS: Admitting Provider Surgery; Emergency Provider Emergency Medicine; PCP Nurse Practitioner; Visit Provider Physician Assistant Surgical | DX: K91.872 Postprocedural seroma of a digestive system organ or structure following a digestive system procedure (principal) | CPT/HCPCS: 10030 ==

== ENCOUNTER 2024-04-24 12:58 | Outpatient (AMB) | payer OTHER, SELFPAY ==
--- NOTE | 2024-04-24 13:20 | MHC.OFFVIS ---
Vital Signs 04/24/24 13:23 Height 5 ft 3 in Weight 262 lb 5.601 oz BMI 46.5 Intake Visit Reasons: wound check Intake Note: Patient is seen in office for wound check, post umbilical hernia repair. Pt c/o: admits to continued discharge yellow/greenish color, some foul smell to it, used an antifungal cream for the first two days, is taking oral antbx today is the last dose, area is red, painful and feels pressure, is having dailly BM Gas Torch [place] Required: No Accompanied by: Family/Other Allergies cefaclor [From Ceclor] Allergy (Mild, Verified 04/24/24 13:23) Unknown codeine Allergy (Mild, Verified 04/24/24 13:23) Unknown HPI Comments Details: 38-year-old female patient returning following recent hospitalization for a seroma post umbilical hernia repair mesh. Continues to report some mild drainage from the umbilicus as well as pain in the abdomen. She is eating well and denies any nausea or vomiting. Does have pain with ambulation. She has completed her previous antibiotics. [facility] Surgical History Hx of umbilical hernia repair (04/04/24) History of laparoscopic cholecystectomy Previous section (~04/27/19) Social History Household Members: Spouse and Children Housing: House Do you presently have visiting nurse or other home services: No Alcohol intake: current Alcohol intake frequency: does not drink Patient Tobacco Use Status: Former Tobacco user Substance Use Type: Marijuana service: No Physical Exam Vital Signs: BMI result Body Mass Index 46.5 Const Other: Tearful Resp Effort & Inspection: normal respiratory effort GI Other: Well-healed umbilical incision no redness or discharge in the surrounding skin. He was discharge coming from the umbilicus. Gentle swabbing with a cotton swab produce some yeast like material. Umbilical skin is minimally reddened possibly from persistent moisture. Inspection: Yes Abdominal panniculus present Extrem General: No edema Assessment & Plan Assessment & Plan (1) Incisional hernia: Comment: supraumbilical s/p laparoscopic cholecystectomy Code(s): K43.2 - Incisional hernia without obstruction or gangrene Category: Medical Qualifiers: Obstruction and gangrene presence: without obstruction or gangrene Qualified Code(s): K43.2 - Incisional hernia without obstruction or gangrene (2) Abdominal fluid collection: Code(s): R18.8 - Other ascites Category: Medical Plan 38-year-old female status post repair of an umbilical mesh. Overall her wounds are healing nicely but she continues to have abdominal pain and some umbilical discharge. I recommended upon the antifungal cream using a cotton swab deep into the umbilicus. She should continue to avoid lifting greater than 10 lb which she tried to ambulate as much as possible. I have asked her to return next week for follow-up examination. Medications: New naproxen do not take if using ibuprofen 500 mg PO BID PRN 20 tabs 0RF pain Refilled tramadol 50 mg PO Q8H PRN 15 tabs 0RF pain (scale score 7-10) K43.2 - Incisional hernia without obstruction or gangrene Coding Level of Care Code Global (15794) Diagnoses Incisional hernia, without obstruction or gangrene K43.2 Obstruction and gangrene presence: without obstruction or gangrene Abdominal fluid collection R18.8
[2024-04-24 13:23] VITALS: BMI 46.5
== END 2024-04-24 14:07 | disposition home or self-care (01) ==
PROVIDERS: PCP Nurse Practitioner; Visit Provider Surgery
DX: K43.2 Incisional hernia without obstruction or gangrene (principal); R18.8 Other ascites; Z09 Encounter for follow-up examination after completed treatment for conditions other than malignant neoplasm
CPT/HCPCS: 99212

== ENCOUNTER 2024-05-03 15:20 | Outpatient (AMB) | payer OTHER, SELFPAY ==
--- NOTE | 2024-05-03 15:25 | MHC.OFFVIS ---
Vital Signs 05/03/24 15:29 Height 5 ft 3 in Weight 262 lb 5.601 oz BMI 46.5 Respiration 18 Pulse 92 Intake Visit Reasons: post umbilical hernia repair, wound check Intake Note: Patient is seen in office for wound check, post umbilical hernia repair. 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 Accompanied by: Self / Same As Patient Allergies cefaclor [From Ceclor] Allergy (Mild, Verified 05/03/24 15:29) Unknown codeine Allergy (Mild, Verified 05/03/24 15:29) Unknown Medication List - Last Reconciled 05/03/24 by Kentrell Trotter MD clonazepam 1 mg PO TID PRN duloxetine 60 mg PO DAILY fluticasone propionate 50 mcg/actuation 1 spray intranasal DAILY PRN ibuprofen 600 mg PO QID PRN levonorgestrel (Liletta) 20.4 mcg intrauterine DIRECTED naproxen 500 mg PO BID PRN ondansetron HCl 4 mg PO Q8H PRN sulfamethoxazole-trimethoprim 800-160 mg (Bactrim DS) 1 tab PO BID tramadol 100 mg PO Q6H PRN HPI Comments Details: Radha returns for wound check. She still has soreness deep to the umbilicus. There is a new area of redness at the site of the IR drainage tube. She notes some burning in that location with an area of redness. She has been applying bacitracin ointment to the site. She continues to use the antifungal cream to the umbilicus. [facility] Medical History Abdominal fluid collection Incisional hernia Surgical History Hx of umbilical hernia repair (04/04/24) History of laparoscopic cholecystectomy Previous section (~04/27/19) Social History Household Members: Spouse and Children Housing: House Do you presently have visiting nurse or other home services: No Alcohol intake: current Alcohol intake frequency: does not drink Patient Tobacco Use Status: Former Tobacco user Substance Use Type: Marijuana service: No Physical Exam Vital Signs: Last Vital Signs Pulse 92 05/03/24 15:29 Resp 18 05/03/24 15:29 BMI result Body Mass Index 46.5 Const Other: Tearful Resp Effort & Inspection: normal respiratory effort GI Other: Well-healed umbilical incision no redness or discharge in the surrounding skin. No further redness in the umbilicus. IR site Gentle swabbing with a cotton swab produce some yeast like material. Umbilical skin is minimally reddened possibly from persistent moisture. Inspection: Yes Abdominal panniculus present Extrem General: No edema Assessment & Plan Assessment & Plan (1) Incisional hernia: Comment: supraumbilical s/p laparoscopic cholecystectomy Code(s): K43.2 - Incisional hernia without obstruction or gangrene Category: Medical Qualifiers: Obstruction and gangrene presence: without obstruction or gangrene Qualified Code(s): K43.2 - Incisional hernia without obstruction or gangrene (2) Abdominal fluid collection: Code(s): R18.8 - Other ascites Category: Medical Plan 38-year-old female status post repair of an umbilical mesh. She continues to improve but is still having some incisional pain and umbilical pain. There is no evidence of wound infection or abscess. The patient does have some redness at the site of her IR drain. I recommended applying bacitracin ointment and a dry sterile dressing. She will return in 2 weeks for follow-up examination. Coding Level of Care Code Global (51299) Diagnoses Incisional hernia, without obstruction or gangrene K43.2 Obstruction and gangrene presence: without obstruction or gangrene Abdominal fluid collection R18.8
[2024-05-03 15:29] VITALS: PULSE 92; RESP 18; BMI 46.5
== END 2024-05-03 15:45 | disposition home or self-care (01) ==
PROVIDERS: PCP Nurse Practitioner; Visit Provider Surgery
DX: K43.2 Incisional hernia without obstruction or gangrene (principal); R18.8 Other ascites
CPT/HCPCS: 99212

== ENCOUNTER → 2024-05-03 15:20 | Outpatient (BNVA) | payer OTHER, SELFPAY | PROVIDERS: PCP Nurse Practitioner; Visit Provider Surgery ==

== ENCOUNTER → 2024-05-07 11:01 | Outpatient (BNVA) | payer OTHER, SELFPAY | PROVIDERS: PCP Nurse Practitioner; Visit Provider Surgery | DX: Z48.01 Encounter for change or removal of surgical wound dressing (principal) | CPT/HCPCS: 99211 ==

== ENCOUNTER 2024-05-10 13:02 | Outpatient (AMB) | payer OTHER, SELFPAY ==
[2024-05-10 13:09] VITALS: BMI 46.7
--- NOTE | 2024-05-10 13:09 | A.OFFVIS_ITS ---
Vital Signs 05/10/24 13:09 Height 5 ft 3 in Weight 263 lb 7.238 oz BMI 46.7 Intake Visit Reasons: wound check, umbilical hernia Intake Note: Patient is seen in office for wound check, post umbilical hernia repair. 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 Accompanied by: Self / Same As Patient Allergies cefaclor [From Ceclor] Allergy (Mild, Verified 05/10/24 13:28) Unknown codeine Allergy (Mild, Verified 05/10/24 13:28) Unknown Medication List - Last Reconciled 05/10/24 by Kentrell Trotter MD clonazepam 1 mg PO TID PRN duloxetine 60 mg PO DAILY fluticasone propionate 50 mcg/actuation 1 spray intranasal DAILY PRN ibuprofen 600 mg PO QID PRN levonorgestrel (Liletta) 20.4 mcg intrauterine DIRECTED naproxen 500 mg PO BID PRN ondansetron HCl 4 mg PO Q8H PRN tramadol 100 mg PO Q6H PRN HPI Comments Details: Radha returns to the office today with complaints of feeling weak and tired, with nausea/vomiting, and diarrhea. The diarrhea is up to 4-5 times daily in his associated with severe abdominal pain. She continues to have pain in the umbilicus as well as the right and left lower quadrants. [facility] Medical History Abdominal fluid collection Incisional hernia Surgical History Hx of umbilical hernia repair (04/04/24) History of laparoscopic cholecystectomy Previous section (~04/27/19) Social History Household Members: Spouse and Children Housing: House Do you presently have visiting nurse or other home services: No Alcohol intake: current Alcohol intake frequency: does not drink Patient Tobacco Use Status: Former Tobacco user Substance Use Type: Marijuana service: No Physical Exam Vital Signs: BMI result Body Mass Index 46.7 Const General: ill appearing Nutritional Appearance: obese Orientation/consciousness: patient oriented x3 Resp Effort & Inspection: normal respiratory effort GI Other: Mildly distended, tender especially in the left lower quadrant and right lower quadrant. Umbilical incision is clean and intact with no evidence of infection. Skin Other: Warm and dry, no rash Neuro General: patient oriented x3 Assessment & Plan Assessment & Plan (1) Diarrhea: Code(s): R19.7 - Diarrhea, unspecified Category: Medical Qualifiers: Diarrhea type: presumed infectious Qualified Code(s): R19.7 - Diarrhea, unspecified (2) Diffuse abdominal pain: Code(s): R10.84 - Generalized abdominal pain Category: Medical Plan 38-year-old female patient status post repair of an umbilical hernia complicated by a seroma which was treated with a course of antibiotics. Patient now has profuse diarrhea with abdominal pain and fevers, nausea and vomiting. Findings worrisome for C diff colitis. Patient is having trouble keeping fluids down and may have become dehydrated therefore I recommended she present to the emergency department today for further evaluation. ED provider called. Patient expressed understanding and agrees with the plan. Coding Level of Care Code Global (71135) Diagnoses Diarrhea of presumed infectious origin R19.7 Diarrhea type: presumed infectious Diffuse abdominal pain R10.84
== END 2024-05-10 13:34 | disposition home or self-care (01) ==
PROVIDERS: PCP Nurse Practitioner; Visit Provider Surgery
DX: R19.7 Diarrhea, unspecified (principal); R10.84 Generalized abdominal pain
CPT/HCPCS: 99213

== ENCOUNTER → 2024-05-10 13:02 | Outpatient (BNVA) | payer OTHER, SELFPAY | PROVIDERS: PCP Nurse Practitioner; Visit Provider Surgery ==

== ENCOUNTER 2024-05-10 13:38 | Inpatient (IN) | payer OTHER, SELFPAY ==
--- NOTE | ~2024-05-10 | CT_ITS ---
CLINICAL HISTORY: Diffuse abdl pain N V D. post surgical abdomen CT abdomen and pelvis with contrast Comparison: CT - CT ABDOMEN PELVIS W IV CON - 05/10/24 17:01 EST Findings: The lung bases are clear. The gallbladder is surgically absent the liver, spleen, adrenal glands, pancreas, kidneys, ureters and bladder are within normal limits. Uterus and adnexa are unremarkable. No bowel obstruction, free air, free fluid, abscess or adenopathy. The known midline abscess/fluid collection currently measures 3.1 x 1.3 cm versus 3.8 x 2.2 cm on the comparison study. Surrounding inflammatory change persists. No acute osseous finding. Impression: Decreasing size of a midline fluid collection/abscess along the rectus sheath. No acute intraperitoneal process This document has been electronically signed by: Alexandr Nicole MD on 05/10/2024 18:28:38
[2024-05-10 14:23] VITALS: BP 158/97; PULSE 105; RESP 20; TEMP 37; O2SAT 98; BMI 44.0
--- NOTE | 2024-05-10 14:24 | ED_ITS ---
HPI - Abdominal Pain General Chief Complaint: Abdominal Pain Stated Complaint: Weakness, vomiting, post op Time Seen by Provider: 05/10/24 14:44 Source: RN notes reviewed and old records reviewed History of Present Illness ED Provider: Maureen Herr PA-C HPI narrative: 38-year-old female with a past medical history obesity, s/p cholecystectomy, , umbilical hernia repair by Dr. Trotter on 04/04/2024 complicated by seroma which was treated with course of antibiotics/IR placed drain, presenting to ED from Dr. Trotter's office due to continued abdominal pain, decreased p.o. intake, nausea, vomiting, diarrhea, and intermittent fevers T-max 103 degrees. took Motrin around 1500. Denies chills, travel, sick contacts, dysuria / hematuria. States symptoms come in waves Related Data Home Medications ?Medication ?Instructions ?Recorded ?Confirmed duloxetine 60 mg capsule,delayed 60 mg PO DAILY 02/21/24 05/10/24 release clonazepam 1 mg tablet 1 mg PO TID PRN Anxiety 04/12/24 05/10/24 fluticasone propionate 50 1 spray intranasal DAILY PRN 04/12/24 05/10/24 mcg/actuation nasal Allergy Symptoms spray,suspension ibuprofen 600 mg tablet 600 mg PO QID PRN Pain 04/12/24 05/10/24 levonorgestrel 20.4 mcg/24 hr (up 20.4 mcg intrauterine DIRECTED 04/12/24 05/10/24 to 8 yrs) 52 mg intrauterine device (Liletta) Previous Rx's ?Medication ?Instructions ?Recorded ondansetron HCl 4 mg tablet 4 mg PO Q8H PRN nausea and 04/04/24 vomiting #20 tabs naproxen 500 mg tablet 500 mg PO BID PRN pain #20 tabs 04/24/24 tramadol 100 mg tablet 100 mg PO Q6H PRN pain (scale 05/07/24 score 7-10) #10 tabs Allergies Allergy/AdvReac Type Severity Reaction Status Date / Time cefaclor [From Ceclor] Allergy Mild Unknown Verified 05/10/24 14:27 codeine Allergy Mild Unknown Verified 05/10/24 14:27 Review of Systems Review of Systems Yes all other systems are reviewed and are negative Constitutional: Reports as per HPI [facility] Past Medical History Attestation statement: The following information was validated with the patient. Source: old records reviewed Medical History Abdominal fluid collection Incisional hernia Surgical History Hx of umbilical hernia repair (04/04/24) History of laparoscopic cholecystectomy Previous section (~04/27/19) Social History Social History Household Members: Spouse and Children Housing: House Do you presently have visiting nurse or other home services: No Alcohol intake: former Patient Tobacco Use Status: Former Tobacco user Smoked in Last 30 Days: No Use of substances other than those prescribed or required for medical reasons: Yes Substance Use Type: Marijuana Advance Directives: Yes Advance Directives Information Provided: No Advance Directives on File: No Patient : No service: No Physical Exam ED Vital Signs: Vital Signs - 24 hr 05/10/24 14:23 05/10/24 17:04 05/10/24 18:46 Temperature 98.6 F 97.3 F 98.5 F Pulse Rate 105 H 68 72 Respiratory Rate 20 14 20 Blood Pressure 158/97 H 127/73 Pulse Oximetry 98 96 Oxygen Delivery Method Room Air Room Air BMI result Body Mass Index 44.0 Const General: cooperative, healthy appearing and no acute distress Orientation/consciousness: patient oriented x3 Limitations: no limitations HENMT Head: Yes normal to inspection and Yes atraumatic Ears: hearing grossly normal bilaterally General nose exam: Normal external nose present Face and sinus: Yes normal facial exam Eyes General: appearance normal, both eyes and all related structures EOM: EOMs intact bilaterally Neck Neck: Yes normal visual inspection and Yes no meningeal signs Resp Effort & Inspection: normal respiratory effort and no respiratory distress Auscultation: clear to auscultation bilaterally Cardio Rate: regular rate Heart sounds: S1 normal heart sound present and S2 normal heart sound present GI Inspection: Yes normal to inspection Palpation (GI): Soft to palpation, Tenderness to palpation present (GI) ( diffusely > periumbilical. No active periumbilical drainage) with no rebound tenderness, no guarding and not rigid Skin Rashes: no rashes Wounds: no wounds Neuro General: patient oriented x3, tone normal and no meningeal signs Cranial nerves: Yes CN's II-XII intact bilaterally Gait exam (Neuro): Normal gait present Extrem General: Yes normal to inspection Course Course Course Narrative: This is an RME: Additional HPI, ROS, PE not included below will be deferred to primary provider. RME assessment and note performed by: Gissel Govea PA-C 38 y/o female with history of morbid obesity, hx cholecystectomy, hx , hx umbilical hernia repair by Dr. Trotter on 04/04/24, who presents to the ER with complaints of worsening abdominal pain, nausea, vomiting x 2 weeks. She was admitted on 04/12 - 04/20 - patient was admitted to the surgical service for IV antibiotics and further wound management. CT scan felt supra umbilical a seroma increased in size and was more organized. IR drained the collection and was approximated to be 60 cc of divina fluid aspirated. She states that over the last 2 weeks, she has had increased weakness, intermittent temp 103? F. She initially thought this was norovirus however was seen by Dr. Trotter and advised to report to the ER hawa. Plan: Labs, ekg, pt jordyn back for further management. -[id number]-- labs reassuring CT abdomen and pelvis with contrast Impression: Decreasing size of a midline fluid collection/abscess along the rectus sheath. No acute intraperitoneal process > will consult Dr. Trotter > Plan to admit to his service Medical Decision Making Medical Decision Making MDM Narrative: 38-year-old female with a past medical history obesity, s/p cholecystectomy, , umbilical hernia repair by Dr. Trotter on 04/04/2024 complicated by seroma which was treated with course of antibiotics/IR placed drain, presenting to ED from Dr. Trotter's office due to continued abdominal pain, decreased p.o. intake, nausea, vomiting, diarrhea, and intermittent fevers T-max 103 degrees. On exam mildly tachycardic, appears uncomfortable, abdomen is soft with diffuse tenderness greatest periumbilically. No rebound or guarding. Concern for ? postsurgical complication vs colitis/diverticulitis or appendicitis vs gastroenteritis. Concern for metabolic abnormality/dehydration. Low suspicion for severe sepsis at this time. Concern for C diff/infectious colitis Plan: Labs, UA, stool studies, CT AP, IVF, pain control, re-evaluate Please refer to course for remaining clinical decision making, interpretation of labs/imaging results, and discussions with consultants and/or family members. Differential Diagnosis Differential Diagnoses: The differential diagnosis associated with the presentation includes As above Admission/Observation Consideration of admission/observation: Escalation of care including admission/observation considered Consult Healthcare Provider Management of the patient was discussed with: Tumblers Supervisor Lab Data MDM Lab Attestation statement: I reviewed the patient's lab results. 05/10/24 15:16 05/10/24 15:16 Labs: Lab Results 05/10/24 Range/Units 15:16 WBC 9.9 (4.8-10.8) X10*3/uL RBC 4.79 D (4.20-5.50) X10*6/uL Hgb 14.3 D (12.0-16.0) g/dl Hct 41.1 D (37.0-47.0) % MCV 85.8 (80.0-98.0) fL MCH 29.9 (27.0-33.0) pg MCHC 34.8 (31.0-35.0) g/dl RDW 13.1 (11.0-16.0) % Plt Count 370 (160-400) X10*3/uL MPV 9.9 (9.4-12.3) fL Immature Gran % (Auto) 0.2 (0.0-0.4) % Neut % (Auto) 65.9 (45-73) % Lymph % (Auto) 24.0 (20-40) % Spink % (Auto) 6.8 (2-11) % Eos % (Auto) 2.8 (0-4) % Baso % (Auto) 0.3 (0-2) % Lymph # (Auto) 2.4 (1.2-4.9) X10*3/uL [place] # (Auto) 0.7 (0.1-1.2) X10*3/uL Eos # (Auto) 0.3 (0.0-0.4) X10*3/uL Baso # (Auto) 0.0 (0.0-0.2) X10*3/uL Abs Immat Gran (auto) 0.02 (0.00-0.03) X10*3/uL Absolute Neuts (auto) 6.5 (2.0-8.3) x10*3/uL Absolute Nucleated RBC 0.000 (0.0-0.012) X10*3/uL Nucleated RBC % (auto) 0.0 (0.0-0.2) /100WBC Sodium 137 (135-145) mmol/L Potassium 4.1 (3.3-5.1) mmol/L Chloride 105 (96-108) mmol/L Carbon Dioxide 22 (22-29) mmol/L Anion Gap 14 (12-20) BUN 10 (9-16) mg/dL Creatinine 0.70 (0.5-1.4) mg/dL Estim Creat Clear Calc 157.8 Estimated GFR > 60 Random Glucose 95 (60-115) mg/dL Calcium 9.8 D (8.4-10.2) mg/dL Magnesium 1.9 (1.6-2.6) mg/dL Total Bilirubin 0.3 (0.0-1.0) mg/dL Direct Bilirubin 0.1 (0.0-0.5) mg/dL AST 24 (5-31) U/L ALT 33 H (0-31) U/L Alkaline Phosphatase 84 (39-117) U/L Total Protein 8.2 H (6.5-8.0) g/dL Albumin 4.3 (3.5-5.0) g/dL Lipase 10 (8-78) U/L Beta HCG, Quant < 2 mIU/mL Influenza Type A (PCR) NEGATIVE (Negative) Influenza Type B (PCR) NEGATIVE (Negative) RSV RNA Qual (PCR) NEGATIVE (Negative) SARS-CoV-2 RNA (RT-PCR) NEGATIVE (Negative) Independent Interpretation I performed an independent interpretation of an: CT Scan Radiology Impression Discussion of test interpretation with radiology: I have reviewed the radiologist's reading. External Record Review External record reviewed: Inpatient record, Office record, Outpatient record, Prior outpatient labs, Prior outpatient radiology, Primary care record and Outside ED record Tests considered The following testing was considered but not selected: As above Prescription Management I considered prescription management with: Pain Medication Chronic Conditions Patient?s care impacted by: Other Social Determinants Patient?s care significantly limited by Social Determinants of Health including: Other Social Determinant of Health Medications Administered Discontinued Medications Generic Name Dose Route Start Last Admin Trade Name Freq PRN Reason Stop Dose Admin Lactated Ringer's 1,000 mls @ 999 mls/hr 05/10/24 15:15 05/10/24 16:32 Lr IV 05/10/24 16:15 Infused .Q1H1M KATHY Infusion Iohexol 85 ml 05/10/24 17:33 05/10/24 17:34 Iohexol 350 Mg/Ml 75 Ml Infus..Btl IV 05/10/24 17:34 85 ml ONCE ONE Administration Morphine Sulfate 2 mg 05/10/24 15:05 05/10/24 15:25 Morphine Sulfate 2 Mg/Ml Cartridge IVPUSH 05/10/24 15:06 2 mg ONCE ONE Administration Protocol Morphine Sulfate 4 mg 05/10/24 18:37 05/10/24 18:47 Morphine Sulfate 4 Mg/Ml Cartridge IVPUSH 05/10/24 18:38 4 mg ONCE ONE Administration Protocol Ondansetron HCl 4 mg 05/10/24 15:05 05/10/24 15:26 Ondansetron Hcl 4 Mg/2 Ml Vial IVPUSH 05/10/24 15:06 4 mg ONCE ONE Administration Discharge Plan Discharge Clinical Impression: Abdominal pain, Nausea & vomiting Diarrhea Qualifiers: Diarrhea type: presumed infectious Qualified Code(s): R19.7 - Diarrhea, unspecified Patient Disposition: Still a Patient Prescriptions: No Action tramadol 100 mg tablet 100 mg PO Q6H PRN (Reason: pain (scale score 7-10)) Qty: 10 0RF clonazepam 1 mg tablet 1 mg PO TID PRN (Reason: Anxiety) ibuprofen 600 mg tablet 600 mg PO QID PRN (Reason: Pain) fluticasone propionate 50 mcg/actuation Glennie,Suspension 1 spray INTRANASAL DAILY PRN (Reason: Allergy Symptoms) Rx Instructions: administer into each nostril Liletta 20.4 mcg/24 hr (8 yrs) 52 mg Intrauterine Device 20.4 mcg INTRAUTERINE DIRECTED Rx Instructions: Every 8 years ondansetron HCl 4 mg tablet 4 mg PO Q8H PRN (Reason: nausea and vomiting) Qty: 20 0RF duloxetine 60 mg capsule,delayed release(DR/EC) 60 mg PO DAILY naproxen 500 mg tablet 500 mg PO BID PRN (Reason: pain) Qty: 20 0RF Rx Instructions: do not take if using ibuprofen Print Language: Ghanaian
--- NOTE | 2024-05-10 14:29 | ECG_ITS ---
Test Reason : TACHYCARDIA Blood Pressure : */* mmHG Vent. Rate : 82 BPM Atrial Rate : 82 BPM P-R Int : 148 ms QRS Dur : 78 ms QT Int : 370 ms P-R-T Axes : 39 -8 27 degrees QTcB Int : 432 ms Normal sinus rhythm Nonspecific T wave abnormality Abnormal ECG No previous ECGs available Referred By: Gissel Govea Electronically Signed By: VANDANA GUZMAN MD
[2024-05-10 15:20] LABS: MANUAL DIFF FLAG NO
[2024-05-10] MEDS: Lactated Ringers 1,000 ML 999 ML IV (15:24)
[2024-05-10] MEDS: Morphine Sulfate 2 MG/ML CARTRIDGE IVPUSH (15:25)
[2024-05-10] MEDS: ondansetron HCL 4 MG/2 ML VIAL IVPUSH ×2 (15:26→20:48)
[2024-05-10 15:27] LABS: Basophils Percent Auto 0.3 % (0-2); Eosinophils Absolute Auto 0.3 X10*3/uL (0.0-0.4); Eosinophils Percent Auto 2.8 % (0-4); Hematocrit 41.1 % (37.0-47.0); Hemoglobin 14.3 g/dl (12.0-16.0); Imm Gran Abs Auto 0.02 X10*3/uL (0.00-0.03); Imm Gran Pct Auto 0.2 % (0.0-0.4); Lymphocytes Absolute Auto 2.4 X10*3/uL (1.2-4.9); Mean Corpuscular HGB Conc 34.8 g/dl (31.0-35.0); Mean Corpuscular Hemoglobin 29.9 pg (27.0-33.0); Mean Corpuscular Volume 85.8 fL (80.0-98.0); Mean Platelet Volume 9.9 fL (9.4-12.3); Monocytes Absolute Auto 0.7 X10*3/uL (0.1-1.2); Monocytes Percent Auto 6.8 % (2-11); Neutrophils Absolute Auto 6.5 x10*3/uL (2.0-8.3); Neutrophils Percent Auto 65.9 % (45-73); Platelet Count 370 X10*3/uL (160-400); Red Blood Count 4.79 X10*6/uL (4.20-5.50); Red Cell Distribution Width 13.1 % (11.0-16.0); White Blood Count 9.9 X10*3/uL (4.8-10.8)
[2024-05-10 16:01] LABS: Influenza A PCR NEGATIVE (Negative); Influenza B PCR NEGATIVE (Negative); Resp Syncy Virus RNA Qual PCR NEGATIVE (Negative); SARS COV2 PCR INHOUSE NEGATIVE (Negative)
[2024-05-10 16:06] LABS: Alanine Aminotransferase 33 U/L (0-31); Albumin Level 4.3 g/dL (3.5-5.0); Anion Gap 14 (12-20); Aspartate Amino Transferase 24 U/L (5-31); Bilirubin Direct 0.1 mg/dL (0.0-0.5); Bilirubin Total 0.3 mg/dL (0.0-1.0); Blood Urea Nitrogen 10 mg/dL (9-16); Calcium 9.8 mg/dL (8.4-10.2); Carbon Dioxide 22 mmol/L (22-29); Chloride 105 mmol/L (96-108); Creatinine Clr Calc Pharmacy 157.8; Estimated Glomerular Filt Rate > 60; Glucose Random 95 mg/dL (60-115); HCG Quantitative < 2 mIU/mL; Lipase 10 U/L (8-78); Magnesium 1.9 mg/dL (1.6-2.6); Potassium 4.1 mmol/L (3.3-5.1); Sodium 137 mmol/L (135-145); Total Protein 8.2 g/dL (6.5-8.0)
[2024-05-10 16:15] LABS: Alkaline Phosphatase 84 U/L (39-117)
[2024-05-10 17:04] VITALS: BP 127/73; PULSE 68; RESP 14; TEMP 36.3; O2SAT 96
[2024-05-10] MEDS: iohexoL 350 MG/ML 75 ML INFUS..BTL 85 ML IV (17:34)
[2024-05-10 18:46] VITALS: PULSE 72; RESP 20; TEMP 36.9
[2024-05-10] MEDS: Morphine Sulfate 4 MG/ML CARTRIDGE IVPUSH ×2 (18:47→21:09)
[2024-05-10 18:51] VITALS: BP 125/56
--- NOTE | 2024-05-10 21:06 | PHA.MEDREC ---
Addendum entered by Lola Lew RPh 05/10/24 21:21: [facility] reviewed Original Note: Pharmacy Consult ? Medication Reconciliation Pharmacy has completed the medication reconciliation. Spoke with patient and she confirmed her medications. Patient confirmed her Duloxetine 60mg tab and confirmed she takes it every night @1999. She confirmed she took Ibuprofen this morning and everything else yesterday.
[2024-05-10 21:10] LABS: Appearance Urine Clear; Color Urine Yellow; Glucose Urine UA Negative (Negative); Leukocyte Esterase Urine Negative (Negative); Nitrite Urine Negative (Negative); Specific Gravity - Urine >= 1.030 (1.005-1.025); Urine Blood Negative (Negative); Urine Ketones 80 mg/dL (Negative); Urine Protein Trace mg/dL (Neg-Trace)
[2024-05-10 22:00] VITALS: BP 124/68; PULSE 86; RESP 12; TEMP 36.4; O2SAT 95
[2024-05-10] MEDS: Acetaminophen 325 MG TABLET 650 MG PO (22:13)
[2024-05-10] MEDS: DULoxetine HCl 60 MG CAPSULE.DR PO (22:17)
[2024-05-10 23:50] VITALS: BP 118/67; PULSE 95; RESP 20
[2024-05-10] MEDS: 0.9 % Sodium Chloride Flush 3 ML SYRINGE IVFLUSH (23:50)
[2024-05-10] MEDS: HYDROmorphone HCl 0.5 MG/0.5 ML SYRINGE IVPUSH (23:51)
[2024-05-11] VITALS (7 sets, daily range): BP systolic 117–134; BP diastolic 58–71; PULSE 78–102; RESP 12–20; TEMP 36.2–36.8; O2SAT 92–97; BMI 45.0
[2024-05-11] MEDS: HYDROmorphone HCl 0.5 MG/0.5 ML SYRINGE IVPUSH ×6 (02:57→20:48)
[2024-05-11] MEDS: 0.9 % Sodium Chloride Flush 3 ML SYRINGE IVFLUSH ×3 (07:17→20:05)
--- NOTE | 2024-05-11 08:21 | P.HPGS_ITS ---
History of Present Illness History of Present Illness Date of Service: 05/11/24 Chief complaint: abdominal pain and diarrhea, colitis Narrative: Radha returns to the office today with complaints of feeling weak and tired, with nausea/vomiting, and diarrhea. The diarrhea is up to 4-5 times daily in his associated with severe abdominal pain. She continues to have pain in the umbilicus as well as the right and left lower quadrants. She was initially seen in the office was subsequently sent to the emergency department for further evaluation. In the emergency department her laboratories were found to be normal and CT abdomen and pelvis revealed no evidence of intra-abdominal abscess . There was a small residual fluid collection in the subcutaneous tissue which is much smaller than on previous studies. There is no evidence of an intra- abdominal abscess. Possibility of C diff colitis was raised given the frequent bowel movements. Since the patient has been in the emergency department however she is not passed any further stool to be collected. Review of Systems Review of Systems: Yes all other systems are reviewed and are negative PMFSH Past Medical History Medical History Abdominal fluid collection Incisional hernia Surgical History Surgical History Hx of umbilical hernia repair (04/04/24) History of laparoscopic cholecystectomy Previous section (~04/27/19) Social History Social History Household Members: Spouse and Children Housing: House Do you presently have visiting nurse or other home services: No Alcohol intake: former Patient Tobacco Use Status: Former Tobacco user Smoked in Last 30 Days: No Use of substances other than those prescribed or required for medical reasons: Yes Substance Use Type: Marijuana Advance Directives: Yes Advance Directives Information Provided: No Advance Directives on File: No Patient : No service: No Meds Allergies Allergy/AdvReac Type Severity Reaction Status Date / Time cefaclor [From Ceclor] Allergy Mild Unknown Verified 05/10/24 14:27 codeine Allergy Mild Unknown Verified 05/10/24 14:27 Active Medications: Current Medications Acetaminophen (Acetaminophen 325 Mg Tablet) 650 mg PO Q6H PRN PRN Reason: Pain, Mild 1-3,fever,headache Last Admin: 05/10/24 22:13 Dose: 650 mg Albuterol Sulfate (Albuterol Sulfate 90 Mcg 8 Gm Inhaler) 2 puff INHALE RQ6H [facility] Calcium Carbonate (Calcium Carbonate 750 Mg Tab.Chew) 750 mg PO Q4H PRN PRN Reason: Heartburn Clonazepam (Clonazepam 1 Mg Tablet) 1 mg PO TID PRN PRN Reason: Anxiety Duloxetine HCl (Duloxetine Hcl 60 Mg Capsule.Dr) 60 mg PO DAILY@1999 [facility] Last Admin: 05/10/24 22:17 Dose: 60 mg Fluticasone Propionate (Fluticasone Propionate Nasal 16 Gm [place]) 1 spray NOSTRIL-B DAILY PRN PRN Reason: Allergy Symptoms Hydromorphone HCl (Hydromorphone Hcl 0.5 Mg/0.5 Ml Syringe) 0.5 mg IVPUSH Q3H PRN; Protocol PRN Reason: Pain, Severe (Pain Scale 7-10) Last Admin: 05/11/24 07:17 Dose: 0.5 mg Magnesium Hydroxide (Milk Of Magnesia 30 Ml Oral.Susp) 30 ml PO DAILY PRN PRN Reason: Constipation Melatonin (Melatonin 3 Mg Tablet) 6 mg PO BEDTIME PRN PRN Reason: Insomnia Ondansetron HCl (Ondansetron Hcl 4 Mg/2 Ml Vial) 4 mg IVPUSH Q8H PRN PRN Reason: Nausea and Vomiting Last Admin: 05/10/24 20:48 Dose: 4 mg Sodium Chloride (0.9 % Sodium Chloride Flush 3 Ml Syringe) [facility] Last Admin: 05/11/24 07:17 Dose: 3 ml Tramadol HCl (Tramadol Hcl 50 Mg Tablet) 100 mg PO Q6H PRN PRN Reason: Pain, Moderate(Pain Scale 4-6) Home Medications ?Medication ?Instructions ?Recorded ?Confirmed ?Last Taken ?Type duloxetine 60 mg capsule,delayed 60 mg PO DAILY@199902/21/24 05/10/24 05/09/24 History release clonazepam 1 mg tablet 1 mg PO TID PRN Anxiety 04/12/24 05/10/24 05/09/24 History fluticasone propionate 50 1 spray intranasal DAILY PRN 04/12/24 05/10/24 05/09/24 History mcg/actuation nasal Allergy Symptoms spray,suspension ibuprofen 600 mg tablet 600 mg PO QID PRN Pain 04/12/24 05/10/24 Unknown History levonorgestrel 20.4 mcg/24 hr (up 20.4 mcg intrauterine DIRECTED 04/12/24 05/10/24 5 Years Ago History to 8 yrs) 52 mg intrauterine ~05/11/19 device (Liletta) albuterol sulfate 90 mcg/actuation 2 puff inhalation Q6H 05/10/24 05/10/24 05/09/24 History aerosol inhaler Physical Exam Vital Signs: Vital Signs: Last Vital Signs Temp 98.2 F 05/11/24 06:00 Pulse 82 05/11/24 06:00 Resp 12 05/11/24 06:00 BP 117/63 05/11/24 06:00 Pulse Ox 97 05/11/24 06:00 O2 Del Method Room Air 05/11/24 06:00 BMI result Body Mass Index 44.0 Const: General: ill appearing Nutritional Appearance: obese Orientation/consciousness: patient oriented x3 Resp: Effort & Inspection: normal respiratory effort GI: Other: Mildly distended, tender especially in the left lower quadrant and right lower quadrant. Umbilical incision is clean and intact with no evidence of infection. Skin: Other: Warm and dry, no rash Neuro: General: patient oriented x3 Results Results Labs: Short CBC 05/10/24 Range/Units 15:16 WBC 9.9 (4.8-10.8) X10*3/uL Hgb 14.3 D (12.0-16.0) g/dl Hct 41.1 D (37.0-47.0) % Plt Count 370 (160-400) X10*3/uL BMP 05/10/24 15:16 Sodium 137 Potassium 4.1 Chloride 105 Carbon Dioxide 22 BUN 10 Creatinine 0.70 Calcium 9.8 D Liver Function 05/10/24 Range/Units 15:16 Total Bilirubin 0.3 (0.0-1.0) mg/dL Direct Bilirubin 0.1 (0.0-0.5) mg/dL AST 24 (5-31) U/L ALT 33 H (0-31) U/L Alkaline Phosphatase 84 (39-117) U/L Albumin 4.3 (3.5-5.0) g/dL Urine 05/10/24 Range/Units 21:02 Urine Color Yellow Urine Appearance Clear Urine pH 7.0 (5.0-9.0) Ur Specific [place] >= 1.030 H (1.005-1.025) Urine Protein Trace (Neg-Trace) mg/dL Urine Glucose (UA) Negative (Negative) mg/dL Assessment and Plan (1) Nausea & vomiting: Status: Acute (2) Abdominal pain: Status: Acute Plan 38-year-old female patient presenting status post repair of an umbilical hernia with mesh complicated by a seroma which required IR drainage. She now reports diffuse abdominal pain, nausea, vomiting, and diarrhea. Workup revealed a normal WBC and CT does not reveal any intra-abdominal infection. Since being hospitalized no further diarrhea has been reported. Patient requesting Dilaudid for pain. C diff colitis is suspected however we will continue to monitor for further diarrhea. Quality Stroke Does the patient have a stroke diagnosis?: No VTE Prior VTE?: No VTE Risk Level:: Surgical - moderate VTE Device Contraindication: N/A - Device Ordered VTE Drug Contraindication: Treatment Not Indicated Procedures Date of Service Date of Service: 05/11/24
[2024-05-11] MEDS: Albuterol Sulfate 90 MCG 8 GM INHALER 2 PUFF INHALE (11:09)
--- NOTE | 2024-05-11 14:06 | MHC.CM.PN ---
PT STATES LIVES WITH FAMILY IN HOUSE PT STATES SHE RECEIVES NO SERVICES PT STATES SHE DOES NOT USE DME PT STATES SHE HAS HCP, COPY REQUESTED PT'S PCP- RICK BLUM PT'S LOGAN- NATASHA PT'S PRIMARY [phone] DC-HOME SELF CARE VIA PRIVATE TRANSPORT
[2024-05-11] MEDS: ondansetron HCL 4 MG/2 ML VIAL IVPUSH (17:59)
[2024-05-11] MEDS: DULoxetine HCl 60 MG CAPSULE.DR PO (20:05)
[2024-05-11] MEDS: clonazePAM 1 MG TABLET PO (22:23)
[2024-05-12] MEDS: HYDROmorphone HCl 0.5 MG/0.5 ML SYRINGE IVPUSH ×6 (05:21→23:02)
[2024-05-12] MEDS: ondansetron HCL 4 MG/2 ML VIAL IVPUSH ×3 (05:28→16:31)
[2024-05-12 05:36] VITALS: BP 138/83; PULSE 83; RESP 16; TEMP 36.1; O2SAT 95
[2024-05-12 08:21] VITALS: BP 109/67; PULSE 67; RESP 18; TEMP 36.1; O2SAT 94
[2024-05-12] MEDS: 0.9 % Sodium Chloride Flush 3 ML SYRINGE IVFLUSH ×2 (09:02→16:36)
[2024-05-12] MEDS: traMADoL HCL 50 MG TABLET 100 MG PO ×2 (11:48→17:48)
[2024-05-12 12:27] LABS: Adenovirus F 40/41 Not Detected (Not Detect.); Astrovirus Not Detected (Not Detect.); Campylobacter Not Detected (Not Detect.); Cryptosporidium Not Detected (Not Detect.); Cyclospora cayetanensis Not Detected (Not Detect.); E. coli EAEC Not Detected (Not Detect.); E. coli EPEC Not Detected (Not Detect.); E. coli ETEC Not Detected (Not Detect.); E. coli STEC Not Detected (Not Detect.); Entamoeba histolytica Not Detected (Not Detect.); Giardia lamblia Not Detected (Not Detect.); Norovirus GI/GII Not Detected (Not Detect.); Plesiomonas shigelloides Not Detected (Not Detect.); Rotavirus A Not Detected (Not Detect.); Salmonella Not Detected (Not Detect.); Sapovirus Not Detected (Not Detect.); Shigella sp./EIEC Not Detected (Not Detect.); Vibrio Not Detected (Not Detect.); Vibrio Cholerae Not Detected (Not Detect.); Yersinia enterocolitica Not Detected (Not Detect.)
[2024-05-12 14:00] VITALS: BP 119/70; PULSE 86; RESP 16; TEMP 36.4; O2SAT 93
[2024-05-12 14:41] LABS: CDiff Gene PCR NEGATIVE (Negative)
[2024-05-12] MEDS: DULoxetine HCl 60 MG CAPSULE.DR PO (19:32)
[2024-05-12] MEDS: Acetaminophen 325 MG TABLET 650 MG PO (19:34)
[2024-05-12] MEDS: Prochlorperazine Edisylate 10 MG/2 ML VIAL IVPUSH (20:20)
[2024-05-12 22:00] VITALS: BP 103/55; PULSE 76; RESP 16; TEMP 36.1; O2SAT 93
[2024-05-13 05:11] VITALS: BP 141/94; PULSE 85; RESP 16; TEMP 36; O2SAT 96
[2024-05-13] MEDS: Prochlorperazine Edisylate 10 MG/2 ML VIAL IVPUSH ×2 (05:21→17:56)
[2024-05-13] MEDS: HYDROmorphone HCl 0.5 MG/0.5 ML SYRINGE IVPUSH ×5 (05:21→22:45)
[2024-05-13 06:21] VITALS: BP 131/79
[2024-05-13] MEDS: ondansetron HCL 4 MG/2 ML VIAL IVPUSH (09:40)
[2024-05-13] MEDS: 0.9 % Sodium Chloride Flush 3 ML SYRINGE IVFLUSH ×3 (09:48→22:46)
[2024-05-13] MEDS: traMADoL HCL 50 MG TABLET 100 MG PO ×2 (10:41→16:42)
[2024-05-13 14:00] VITALS: BP 119/58; PULSE 82; RESP 16; TEMP 36.6; O2SAT 92
[2024-05-13] MEDS: DULoxetine HCl 60 MG CAPSULE.DR PO (19:45)
[2024-05-13] MEDS: Ketorolac Tromethamine 15 MG/ML VIAL IVPUSH (19:59)
--- NOTE | 2024-05-13 20:09 | P.PNGS_ITS ---
Subjective Subjective Date of Service: 05/13/24 Interval history: Patient says she feels worse today having sharp pain that goes to her back. She says it feels worse when she is moving. She had a bowel movement passing gas no nausea has been able to eat afebrile no significant drainage coming from the umbilical area Physical Exam 2 Vital Signs: Vital Signs: Last Vital Signs Temp 97.8 F 05/13/24 14:00 Pulse 82 05/13/24 14:00 Resp 16 05/13/24 14:00 BP 119/58 L 05/13/24 14:00 Pulse Ox 92 05/13/24 14:00 O2 Del Method Room Air 05/13/24 14:00 BMI result Body Mass Index 45.0 Const: General: cooperative, healthy appearing, comfortable and no acute distress GI: Other: Abdomen is soft but diffusely a little tender no guarding no rebound no peritoneal signs Objective Data Active Medications Acetaminophen (Acetaminophen 325 Mg Tablet) 650 mg PO Q6H PRN PRN Reason: Pain, Mild 1-3,fever,headache Last Admin: 05/12/24 19:34 Dose: 650 mg Documented By: BASSAM Albuterol Sulfate (Albuterol Sulfate 90 Mcg 8 Gm Inhaler) 2 puff INHALE RQ6H [facility] Last Admin: 05/13/24 17:22 Dose: Not Given Documented By: NATAN Non-Admin Reason: Patient Refused Calcium Carbonate (Calcium Carbonate 750 Mg Tab.Chew) 750 mg PO Q4H PRN PRN Reason: Heartburn Clonazepam (Clonazepam 1 Mg Tablet) 1 mg PO TID PRN PRN Reason: Anxiety Last Admin: 05/11/24 22:23 Dose: 1 mg Documented By: ROCIO Duloxetine HCl (Duloxetine Hcl 60 Mg Capsule.Dr) 60 mg PO DAILY@1999 [facility] Last Admin: 05/13/24 19:45 Dose: 60 mg Documented By: SHAWN Fluticasone Propionate (Fluticasone Propionate Nasal 16 Gm [place]) 1 spray NOSTRIL-B DAILY PRN PRN Reason: Allergy Symptoms Hydromorphone HCl (Hydromorphone Hcl 0.5 Mg/0.5 Ml Syringe) 0.5 mg IVPUSH Q3H PRN; Protocol PRN Reason: Pain, Severe (Pain Scale 7-10) Last Admin: 05/13/24 17:27 Dose: 0.5 mg Documented By: ANDREW Ketorolac Tromethamine (Ketorolac Tromethamine 15 Mg/Ml Vial) 15 mg IVPUSH Q6H [facility] Stop: 05/18/24 19:59 Last Admin: 05/13/24 19:59 Dose: 15 mg Documented By: SHAWN Magnesium Hydroxide (Milk Of Magnesia 30 Ml Oral.Susp) 30 ml PO DAILY PRN PRN Reason: Constipation Melatonin (Melatonin 3 Mg Tablet) 6 mg PO BEDTIME PRN PRN Reason: Insomnia Ondansetron HCl (Ondansetron Hcl 4 Mg/2 Ml Vial) 4 mg IVPUSH Q8H PRN PRN Reason: Nausea and Vomiting Last Admin: 05/13/24 09:40 Dose: 4 mg Documented By: ANDREW Prochlorperazine Edisylate (Prochlorperazine Edisylate 10 Mg/2 Ml Vial) 10 mg IVPUSH Q6H PRN PRN Reason: Nausea and Vomiting Last Admin: 05/13/24 17:56 Dose: 10 mg Documented By: ANDREW Sodium Chloride (0.9 % Sodium Chloride Flush 3 Ml Syringe) 3 ml IVFSH [facility] Last Admin: 05/13/24 17:01 Dose: 3 ml Documented By: ANDREW Tramadol HCl (Tramadol Hcl 50 Mg Tablet) 100 mg PO Q6H PRN PRN Reason: Pain, Moderate(Pain Scale 4-6) Last Admin: 05/13/24 16:42 Dose: 100 mg Documented By: ANDREW Labs 05/10/24 15:16 05/10/24 15:16 Procedures Date of Service Date of Service: 05/13/24 Progress Note: A&P Assessment and plan (1) Abdominal pain: Status: Acute Assessment and Plan: 38-year-old female status post umbilical hernia repair few months ago having abdominal pain that she is concerned about and admitted since Tuesday. She was having some diarrhea as well. C diff is negative blood work is normal she is afebrile her vital signs are good. No etiology obvious for this cause of her pain. She is tolerating p.o. diet ambulating. We will try to get her off the narcotics and just do some tramadol and Toradol and see how she does. Time Spent With Patient Time: Total time managing care of this patient today ____ minutes. Quality Stroke Does the patient have a stroke diagnosis?: No VTE Prior VTE?: No VTE Risk Level:: Surgical - moderate VTE Device Contraindication: N/A - Device Ordered VTE Drug Contraindication: Treatment Not Indicated
--- NOTE | 2024-05-13 20:16 | PM.PNGS ---
Subjective Subjective Date of Service: 05/12/24 Interval history: Patient says she is feeling better today no nausea no vomiting did not have a bowel movement. Afebrile. 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 I believe her C diff testing was negative Physical Exam Vital Signs: Vital Signs: Last Vital Signs Temp 97.8 F 05/13/24 14:00 Pulse 82 05/13/24 14:00 Resp 16 05/13/24 14:00 BP 119/58 L 05/13/24 14:00 Pulse Ox 92 05/13/24 14:00 O2 Del Method Room Air 05/13/24 14:00 BMI result Body Mass Index 45.0 Const: General: cooperative, healthy appearing, comfortable and no acute distress GI: Other: Abdomen is soft nondistended mild tender around the umbilical area but no guarding no rebound no peritoneal signs. She has well-healed incision there maybe a little fluid little crusty material in the base of her umbilicus. No blood no purulent material Objective Data Active Medications Acetaminophen (Acetaminophen 325 Mg Tablet) 650 mg PO Q6H PRN PRN Reason: Pain, Mild 1-3,fever,headache Last Admin: 05/12/24 19:34 Dose: 650 mg Documented By: BASSAM Albuterol Sulfate (Albuterol Sulfate 90 Mcg 8 Gm Inhaler) 2 puff INHALE RQ6H [facility] Last Admin: 05/13/24 17:22 Dose: Not Given Documented By: NATAN Non-Admin Reason: Patient Refused Calcium Carbonate (Calcium Carbonate 750 Mg Tab.Chew) 750 mg PO Q4H PRN PRN Reason: Heartburn Clonazepam (Clonazepam 1 Mg Tablet) 1 mg PO TID PRN PRN Reason: Anxiety Last Admin: 05/11/24 22:23 Dose: 1 mg Documented By: ROCIO Duloxetine HCl (Duloxetine Hcl 60 Mg Capsule.Dr) 60 mg PO DAILY@1999 [facility] Last Admin: 05/13/24 19:45 Dose: 60 mg Documented By: SHAWN Fluticasone Propionate (Fluticasone Propionate Nasal 16 Gm [place]) 1 spray NOSTRIL-B DAILY PRN PRN Reason: Allergy Symptoms Hydromorphone HCl (Hydromorphone Hcl 0.5 Mg/0.5 Ml Syringe) 0.5 mg IVPUSH Q3H PRN; Protocol PRN Reason: Pain, Severe (Pain Scale 7-10) Last Admin: 05/13/24 17:27 Dose: 0.5 mg Documented By: ANDREW Ketorolac Tromethamine (Ketorolac Tromethamine 15 Mg/Ml Vial) 15 mg IVPUSH Q6H [facility] Stop: 05/18/24 19:59 Last Admin: 05/13/24 19:59 Dose: 15 mg Documented By: SHAWN Magnesium Hydroxide (Milk Of Magnesia 30 Ml Oral.Susp) 30 ml PO DAILY PRN PRN Reason: Constipation Melatonin (Melatonin 3 Mg Tablet) 6 mg PO BEDTIME PRN PRN Reason: Insomnia Ondansetron HCl (Ondansetron Hcl 4 Mg/2 Ml Vial) 4 mg IVPUSH Q8H PRN PRN Reason: Nausea and Vomiting Last Admin: 05/13/24 09:40 Dose: 4 mg Documented By: ANDREW Prochlorperazine Edisylate (Prochlorperazine Edisylate 10 Mg/2 Ml Vial) 10 mg IVPUSH Q6H PRN PRN Reason: Nausea and Vomiting Last Admin: 05/13/24 17:56 Dose: 10 mg Documented By: ANDREW Sodium Chloride (0.9 % Sodium Chloride Flush 3 Ml Syringe) 3 ml IVFSH [facility] Last Admin: 05/13/24 17:01 Dose: 3 ml Documented By: ANDREW Tramadol HCl (Tramadol Hcl 50 Mg Tablet) 100 mg PO Q6H PRN PRN Reason: Pain, Moderate(Pain Scale 4-6) Last Admin: 05/13/24 16:42 Dose: 100 mg Documented By: ANDREW Labs 05/10/24 15:16 05/10/24 15:16 Procedures Date of Service Date of Service: 05/13/24 Progress Note: A&P Assessment and plan (1) Abdominal pain: Status: Acute Assessment and Plan: Patient is status post umbilical hernia repair with admission for increased abdominal pain CT not showing anything very significant and she had been having diarrhea but C diff is negative. Plan to increase her diet ambulate and switch to p.o. pain meds and see how she does. Time Spent With Patient Time: Total time managing care of this patient today ____ minutes. Quality Stroke Does the patient have a stroke diagnosis?: No VTE Prior VTE?: No VTE Risk Level:: Surgical - moderate VTE Device Contraindication: N/A - Device Ordered VTE Drug Contraindication: Treatment Not Indicated
[2024-05-13 22:00] VITALS: BP 123/63; PULSE 62; RESP 16; TEMP 36.2; O2SAT 93
[2024-05-14] MEDS: Ketorolac Tromethamine 15 MG/ML VIAL IVPUSH ×4 (02:08→19:10)
[2024-05-14] MEDS: HYDROmorphone HCl 0.5 MG/0.5 ML SYRINGE IVPUSH ×4 (02:25→20:26)
[2024-05-14 05:51] VITALS: BP 121/60; PULSE 85; RESP 18; TEMP 36.3; O2SAT 93
[2024-05-14] MEDS: 0.9 % Sodium Chloride Flush 3 ML SYRINGE IVFLUSH ×2 (08:05→15:01)
[2024-05-14] MEDS: ondansetron HCL 4 MG/2 ML VIAL IVPUSH ×2 (08:13→16:21)
[2024-05-14 08:14] VITALS: BP 135/68; PULSE 63; RESP 16; TEMP 36.8; O2SAT 97
--- NOTE | 2024-05-14 08:17 | PM.PNGS ---
Subjective Subjective Date of Service: 05/14/24 Interval history: Overall feels improved this morning however still has waves of nausea without much appetite. No further diarrhea over the weekend. Abdominal pain mainly in the lower quadrants. No incisional pain. Physical Exam Vital Signs: Vital Signs: Last Vital Signs Temp 98.2 F 05/14/24 08:14 Pulse 63 05/14/24 08:14 Resp 16 05/14/24 08:14 BP 135/68 05/14/24 08:14 Pulse Ox 97 05/14/24 08:14 O2 Del Method Room Air 05/14/24 08:14 BMI result Body Mass Index 45.0 Const: General: no acute distress Nutritional Appearance: obese Orientation/consciousness: patient oriented x3 Resp: Effort & Inspection: normal respiratory effort GI: Palpation (GI): Soft to palpation, Tenderness to palpation present (GI) in the LLQ and in the RLQ, no guarding and not rigid Skin: General skin exam: no rashes or lesions noted Neuro: General: patient oriented x3 Extrem: General: No edema Objective Data Active Medications Acetaminophen (Acetaminophen 325 Mg Tablet) 650 mg PO Q6H PRN PRN Reason: Pain, Mild 1-3,fever,headache Last Admin: 05/12/24 19:34 Dose: 650 mg Documented By: BASSAM Albuterol Sulfate (Albuterol Sulfate 90 Mcg 8 Gm Inhaler) 2 puff INHALE RQ6H [facility] Last Admin: 05/14/24 08:07 Dose: Not Given Documented By: DEBORAH Non-Admin Reason: Patient Refused Calcium Carbonate (Calcium Carbonate 750 Mg Tab.Chew) 750 mg PO Q4H PRN PRN Reason: Heartburn Clonazepam (Clonazepam 1 Mg Tablet) 1 mg PO TID PRN PRN Reason: Anxiety Last Admin: 05/11/24 22:23 Dose: 1 mg Documented By: ROCIO Duloxetine HCl (Duloxetine Hcl 60 Mg Capsule.Dr) 60 mg PO DAILY@1999 [facility] Last Admin: 05/13/24 19:45 Dose: 60 mg Documented By: SHAWN Fluticasone Propionate (Fluticasone Propionate Nasal 16 Gm [place]) 1 spray NOSTRIL-B DAILY PRN PRN Reason: Allergy Symptoms Hydromorphone HCl (Hydromorphone Hcl 0.5 Mg/0.5 Ml Syringe) 0.5 mg IVPUSH Q3H PRN; Protocol PRN Reason: Pain, Severe (Pain Scale 7-10) Last Admin: 05/14/24 02:25 Dose: 0.5 mg Documented By: SALINA Ketorolac Tromethamine (Ketorolac Tromethamine 15 Mg/Ml Vial) 15 mg IVPUSH Q6H [facility] Stop: 05/18/24 19:59 Last Admin: 05/14/24 08:05 Dose: 15 mg Documented By: DAT Magnesium Hydroxide (Milk Of Magnesia 30 Ml Oral.Susp) 30 ml PO DAILY PRN PRN Reason: Constipation Melatonin (Melatonin 3 Mg Tablet) 6 mg PO BEDTIME PRN PRN Reason: Insomnia Ondansetron HCl (Ondansetron Hcl 4 Mg/2 Ml Vial) 4 mg IVPUSH Q8H PRN PRN Reason: Nausea and Vomiting Last Admin: 05/14/24 08:13 Dose: 4 mg Documented By: DAT Prochlorperazine Edisylate (Prochlorperazine Edisylate 10 Mg/2 Ml Vial) 10 mg IVPUSH Q6H PRN PRN Reason: Nausea and Vomiting Last Admin: 05/13/24 17:56 Dose: 10 mg Documented By: ANDREW Sodium Chloride (0.9 % Sodium Chloride Flush 3 Ml Syringe) [facility] Last Admin: 05/14/24 08:05 Dose: 3 ml Documented By: DAT Tramadol HCl (Tramadol Hcl 50 Mg Tablet) 100 mg PO Q6H PRN PRN Reason: Pain, Moderate(Pain Scale 4-6) Last Admin: 05/13/24 16:42 Dose: 100 mg Documented By: ANDREW Labs 05/10/24 15:16 05/10/24 15:16 Procedures Date of Service Date of Service: 05/14/24 Progress Note: A&P Assessment and plan (1) Nausea & vomiting: Status: Acute (2) Diarrhea: Status: Acute (3) Abdominal pain: Status: Acute Plan Patient continues to report nausea without much appetite. Diarrhea appears to have improved. Her C diff titer was negative. Currently reporting abdominal pain in the left lower quadrant and right lower quadrant. No incisional tenderness She may have an element of narcotic abdomen therefore encouraged her to back off on narcotic use. Continue with regular diet, we will consult Gastroenterology for another opinion. Encouraged out of bed and ambulation. Time Spent With Patient Time: Total time managing care of this patient today ____ minutes. Quality Stroke Does the patient have a stroke diagnosis?: No VTE Prior VTE?: No VTE Risk Level:: Surgical - moderate VTE Device Contraindication: N/A - Device Ordered VTE Drug Contraindication: Treatment Not Indicated
[2024-05-14] MEDS: traMADoL HCL 50 MG TABLET 100 MG PO (09:52)
[2024-05-14] MEDS: Dicyclomine HCl 10 MG CAPSULE 20 MG PO ×2 (13:47→15:58)
[2024-05-14] MEDS: Omeprazole 40 MG CAPSULE.DR PO (13:47)
[2024-05-14 14:00] VITALS: BP 127/60; PULSE 76; RESP 16; TEMP 37.4; O2SAT 95
--- NOTE | 2024-05-14 14:11 | MHC.CM.PN ---
EMR REVIEWED. PT IS NOT YET MEDICALLY CLEARED BY SURGERY TO DC HOME (NAUSEA, ABD PAIN STILL PRESENT) CM WILL CONTINUE TO FOLLOW FOR ANY CHANGE TO DC PLAN/NEEDS.
[2024-05-14] MEDS: oxyCODONE HCl Immed Release 5 MG TABLET PO ×2 (15:59→22:09)
[2024-05-14] MEDS: Fluconazole 100 MG TABLET 200 MG PO (16:20)
[2024-05-14] MEDS: clonazePAM 1 MG TABLET PO (16:21)
[2024-05-14 19:00] VITALS: BP 124/68; PULSE 84; RESP 20; TEMP 36.8; O2SAT 94
[2024-05-14] MEDS: DULoxetine HCl 60 MG CAPSULE.DR PO (19:10)
[2024-05-14 22:00] VITALS: BP 118/58; PULSE 65; RESP 20; TEMP 36.7; O2SAT 96
[2024-05-15] MEDS: ondansetron HCL 4 MG/2 ML VIAL IVPUSH ×2 (00:23→17:54)
--- NOTE | 2024-05-15 00:23 | CONS_ITS ---
DATE OF SERVICE: 05/14/2024 REFERRING PHYSICIAN: Dr. Sergo REASON FOR CONSULTATION: Nausea, vomiting, diarrhea, and abdominal pain. HISTORY OF PRESENT ILLNESS: The patient is a pleasant 38-year-old woman, who was admitted to the hospital after presenting to the emergency room with complaints of nausea, vomiting, abdominal pain, and diarrhea. She reports about 2 weeks of nausea, vomiting, and diarrhea, which initially she thought was due to a GI virus, but persisted. There was associated abdominal pain over both lower quadrants and the upper abdomen. The quality of the pain is cramping and there is a radiation from the lower quadrants to the back. This seems worse after a bowel movement and worse with eating. She was evaluated in the emergency department and underwent laboratory testing and imaging, which is reviewed. CT scanning is interpreted as showing decrease in the midline fluid collection from her umbilical hernia repair in March with some surrounding inflammatory change. No bowel obstruction, free air, free fluid, abscess, or adenopathy was noted. With respect to the intestinal tract, her diarrhea has resolved. Laboratory testing showed no evidence of C difficile and a GI panel was negative. She has had no hematemesis and been treated with antiemetics and pain medications. She denies prior GI issues. Her father had a history of diverticular disease. There is no family history of Crohn disease or ulcerative colitis. PAST MEDICAL HISTORY: 1. Psoriasis. 2. Umbilical hernia repair in March with seroma that was drained by Interventional Radiology. 3. Laparoscopic cholecystectomy. 4. section. 5. Anxiety. CURRENT MEDICATIONS: Current medication list is reviewed in the chart. ALLERGIES: CEFACLOR AND CODEINE. FAMILY HISTORY: This is reviewed with the patient and is noncontributory as above. SOCIAL HISTORY: There is no current tobacco or alcohol use. She does use marijuana. REVIEW OF SYSTEMS: SKIN: No pruritus. HEENT: Negative. CARDIOPULMONARY: No shortness of breath or chest pain. GASTROINTESTINAL: As above. GENITOURINARY: Negative. NEUROPSYCHIATRIC: Negative. PHYSICAL EXAMINATION: GENERAL: Shows a pleasant female. VITAL SIGNS: Reviewed in electronic medical record and are stable. SKIN: Anicteric. HEENT: No scleral icterus. NECK: Without lymphadenopathy or thyromegaly. LUNGS: Clear. HEART: Regular rate and rhythm. S1, S2. No murmur. ABDOMEN: Soft. There is mild tenderness to palpation diffusely. There is no guarding or rebound. She has well-healed incisions from her previous surgery and drainage. EXTREMITIES: Without edema. LABORATORY DATA AND IMAGING STUDIES: Reviewed. IMPRESSION: Abdominal pain with nausea and vomiting. Her diarrheal symptoms have resolved. I did recommend a trial of a proton pump inhibitor for possible reflux as a component of her nausea and I have also asked her to start dicyclomine 20 mg 3 times daily to help with any component of functional bowel disease. I did advise her to cut back on narcotics and ambulate. If her symptoms persist, repeat CT scanning could be obtained. Thanks for asking me to see her. I will follow her in the hospital with you. MD JASON Roque/MARTY / [id number] MTDD
[2024-05-15] MEDS: 0.9 % Sodium Chloride Flush 3 ML SYRINGE IVFLUSH ×4 (00:24→19:35)
[2024-05-15] MEDS: Ketorolac Tromethamine 15 MG/ML VIAL IVPUSH ×4 (01:25→19:29)
[2024-05-15] MEDS: HYDROmorphone HCl 0.5 MG/0.5 ML SYRINGE IVPUSH ×5 (01:49→22:39)
[2024-05-15] MEDS: Omeprazole 40 MG CAPSULE.DR PO (05:55)
[2024-05-15 06:00] VITALS: BP 109/60; PULSE 62; RESP 16; TEMP 36.2; O2SAT 95
[2024-05-15] MEDS: Dicyclomine HCl 10 MG CAPSULE 20 MG PO ×3 (07:25→16:16)
[2024-05-15 07:44] VITALS: BP 137/71; PULSE 65; RESP 16; TEMP 36.8; O2SAT 97
[2024-05-15] MEDS: clonazePAM 1 MG TABLET PO ×2 (08:22→17:54)
[2024-05-15] MEDS: oxyCODONE HCl Immed Release 5 MG TABLET PO ×2 (12:00→19:30)
--- NOTE | 2024-05-15 12:10 | P.PNGS_ITS ---
Subjective Subjective Date of Service: 05/15/24 Interval history: Patient reports feeling much improved after taking the Bentyl. Still having some increased cramping after eating but no further nausea or vomiting. Physical Exam 2 Vital Signs: Vital Signs: Last Vital Signs Temp 98.2 F 05/15/24 07:44 Pulse 65 05/15/24 07:44 Resp 16 05/15/24 07:44 BP 137/71 05/15/24 07:44 Pulse Ox 97 05/15/24 07:44 O2 Del Method Room Air 05/15/24 07:44 BMI result Body Mass Index 45.0 Const: General: no acute distress Nutritional Appearance: obese O rientation/consciousness: patient oriented x3 Resp: Effort & Inspection: normal respiratory effort GI: Palpation (GI): Soft to palpation, nontender, no guarding and not rigid Skin: General skin exam: no rashes or lesions noted Neuro: General: patient oriented x3 Extrem: General: No edema Objective Data Active Medications Acetaminophen (Acetaminophen 325 Mg Tablet) 650 mg PO Q6H PRN PRN Reason: Pain, Mild 1-3,fever,headache Last Admin: 05/12/24 19:34 Dose: 650 mg Documented By: BASSAM Albuterol Sulfate (Albuterol Sulfate 90 Mcg 8 Gm Inhaler) 2 puff INHALE RQ6H [facility] Last Admin: 05/15/24 11:02 Dose: Not Given Documented By: DEBORAH Non-Admin Reason: Patient Refused Calcium Carbonate (Calcium Carbonate 750 Mg Tab.Chew) 750 mg PO Q4H PRN PRN Reason: Heartburn Clonazepam (Clonazepam 1 Mg Tablet) 1 mg PO TID PRN PRN Reason: Anxiety Last Admin: 05/15/24 08:22 Dose: 1 mg Documented By: LILLY Dicyclomine HCl (Dicyclomine Hcl 10 Mg Capsule) 20 mg PO TIDAC [facility] Last Admin: 05/15/24 12:01 Dose: 20 mg Documented By: LILLY Duloxetine HCl (Duloxetine Hcl 60 Mg Capsule.Dr) 60 mg PO DAILY@1999 [facility] Last Admin: 05/14/24 19:10 Dose: 60 mg Documented By: MARCEL Fluticasone Propionate (Fluticasone Propionate Nasal 16 Gm [place]) 1 spray NOSTRIL-B DAILY PRN PRN Reason: Allergy Symptoms Hydromorphone HCl (Hydromorphone Hcl 0.5 Mg/0.5 Ml Syringe) 0.5 mg IVPUSH Q3H PRN; Protocol PRN Reason: Pain, Severe (Pain Scale 7-10) Last Admin: 05/15/24 08:22 Dose: 0.5 mg Documented By: LILLY Ketorolac Tromethamine (Ketorolac Tromethamine 15 Mg/Ml Vial) 15 mg IVPUSH Q6H [facility] Stop: 05/18/24 19:59 Last Admin: 05/15/24 07:25 Dose: 15 mg Documented By: LILLY Magnesium Hydroxide (Milk Of Magnesia 30 Ml Oral.Susp) 30 ml PO DAILY PRN PRN Reason: Constipation Melatonin (Melatonin 3 Mg Tablet) 6 mg PO BEDTIME PRN PRN Reason: Insomnia Omeprazole (Omeprazole 40 Mg Capsule.Dr) 40 mg PO DAILY@0630 [facility] Last Admin: 05/15/24 05:55 Dose: 40 mg Documented By: DOMINIQUE Ondansetron HCl (Ondansetron Hcl 4 Mg/2 Ml Vial) 4 mg IVPUSH Q8H PRN PRN Reason: Nausea and Vomiting Last Admin: 05/15/24 00:23 Dose: 4 mg Documented By: DOMINIQUE Oxycodone HCl (Oxycodone Hcl Immed Release 5 Mg Tablet) 5 mg PO Q6H PRN PRN Reason: Pain, Moderate(Pain Scale 4-6) Last Admin: 05/15/24 12:00 Dose: 5 mg Documented By: LILLY Prochlorperazine Edisylate (Prochlorperazine Edisylate 10 Mg/2 Ml Vial) 10 mg IVPUSH Q6H PRN PRN Reason: Nausea and Vomiting Last Admin: 05/13/24 17:56 Dose: 10 mg Documented By: ANDREW Sodium Chloride (0.9 % Sodium Chloride Flush 3 Ml Syringe) 3 ml IVFSH [facility] Last Admin: 05/15/24 07:25 Dose: 3 ml Documented By: LILYL Labs 05/10/24 15:16 05/10/24 15:16 Procedures Date of Service Date of Service: 05/15/24 Progress Note: A&P Assessment and plan (1) Abdominal pain: Status: Acute (2) Nausea & vomiting: Status: Acute Plan Patient is improving with Bentyl and PPI. Continue to encourage limiting narcotic use. Encouraged out of bed and ambulation as well. Plan discharge in a.m. tomorrow. Time Spent With Patient Time: Total time managing care of this patient today ____ minutes. Quality Stroke Does the patient have a stroke diagnosis?: No VTE Prior VTE?: No VTE Risk Level:: Surgical - moderate VTE Device Contraindication: N/A - Device Ordered VTE Drug Contraindication: Treatment Not Indicated
--- NOTE | 2024-05-15 13:10 | P.PNGI_ITS ---
Subjective Subjective Date of Service: 05/15/24 Interval History: feels better since starting dicyclomine Critical Care Time (minutes): 0 Physical Exam 2 Vital Signs: Vital Signs: Last Vital Signs Temp 98.2 F 05/15/24 07:44 Pulse 65 05/15/24 07:44 Resp 16 05/15/24 07:44 BP 137/71 05/15/24 07:44 Pulse Ox 97 05/15/24 07:44 O2 Del Method Room Air 05/15/24 07:44 BMI result Body Mass Index 45.0 GI: Other: abd is soft and nontender Objective Data Labs 05/10/24 15:16 05/10/24 15:16 Procedures Date of Service Date of Service: 05/15/24 Progress Note: A&P Assessment and plan (1) Abdominal pain: Status: Acute Assessment and Plan: slow improvement continue dicyclomine ambulate Time Spent With Patient Time: Total time managing care of this patient today ____ minutes. Quality Stroke Does the patient have a stroke diagnosis?: No VTE Prior VTE?: No VTE Risk Level:: Surgical - moderate VTE Device Contraindication: N/A - Device Ordered VTE Drug Contraindication: Treatment Not Indicated
[2024-05-15 15:26] VITALS: BP 119/57; PULSE 75; RESP 17; TEMP 37.1; O2SAT 92
[2024-05-15 19:18] VITALS: BP 121/64; PULSE 84; RESP 18; TEMP 36.6; O2SAT 98
[2024-05-15] MEDS: DULoxetine HCl 60 MG CAPSULE.DR PO (19:29)
[2024-05-16] MEDS: Ketorolac Tromethamine 15 MG/ML VIAL IVPUSH ×2 (02:00→07:10)
[2024-05-16 05:08] VITALS: BP 124/65; PULSE 61; RESP 17; TEMP 36.1; O2SAT 95
[2024-05-16] MEDS: Omeprazole 40 MG CAPSULE.DR PO (06:04)
[2024-05-16] MEDS: Dicyclomine HCl 10 MG CAPSULE 20 MG PO ×2 (07:10→11:43)
[2024-05-16] MEDS: 0.9 % Sodium Chloride Flush 3 ML SYRINGE IVFLUSH (07:10)
[2024-05-16 07:30] VITALS: BP 129/63; PULSE 65; RESP 16; TEMP 36.1; O2SAT 95
[2024-05-16] MEDS: oxyCODONE HCl Immed Release 5 MG TABLET PO (09:04)
[2024-05-16] MEDS: clonazePAM 1 MG TABLET PO (09:15)
--- NOTE | 2024-05-16 11:46 | P.PNGS_ITS ---
Subjective Subjective Date of Service: 05/16/24 Interval history: Overall feels improved, still with some cramps following meals but better with bentyl. Tolerating small meals. Feels ready for discharge. Physical Exam 2 Vital Signs: Vital Signs: Last Vital Signs Temp 97.0 F 05/16/24 07:30 Pulse 65 05/16/24 07:30 Resp 16 05/16/24 07:30 BP 129/63 05/16/24 07:30 Pulse Ox 95 05/16/24 07:30 O2 Del Method Room Air 05/16/24 07:30 BMI result Body Mass Index 45.0 Const: General: comfortable, no acute distress and alert O rientation/consciousness: patient oriented x3 Resp: Effort & Inspection: normal respiratory effort GI: Other: umbilical incision well healed, no drainage noted Palpation (GI): Soft to palpation, Tenderness to palpation present (GI) (mild lower abd tenderness) with no rebound tenderness, no guarding and not rigid Percussion: Yes normal to percussion Skin: General skin exam: no rashes or lesions noted Neuro: General: patient oriented x3 and moves all extremities Objective Data Active Medications Acetaminophen (Acetaminophen 325 Mg Tablet) 650 mg PO Q6H PRN PRN Reason: Pain, Mild 1-3,fever,headache Last Admin: 05/12/24 19:34 Dose: 650 mg Documented By: BASSAM Albuterol Sulfate (Albuterol Sulfate 90 Mcg 8 Gm Inhaler) 2 puff INHALE RQ6H [facility] Last Admin: 05/16/24 11:43 Dose: Not Given Documented By: LILLY Non-Admin Reason: Patient Refused Calcium Carbonate (Calcium Carbonate 750 Mg Tab.Chew) 750 mg PO Q4H PRN PRN Reason: Heartburn Clonazepam (Clonazepam 1 Mg Tablet) 1 mg PO TID PRN PRN Reason: Anxiety Last Admin: 05/16/24 09:15 Dose: 1 mg Documented By: LILLY Dicyclomine HCl (Dicyclomine Hcl 10 Mg Capsule) 20 mg PO TIDAC [facility] Last Admin: 05/16/24 11:43 Dose: 20 mg Documented By: LILLY Duloxetine HCl (Duloxetine Hcl 60 Mg Capsule.Dr) 60 mg PO DAILY@1999 [facility] Last Admin: 05/15/24 19:29 Dose: 60 mg Documented By: LEONELA Fluticasone Propionate (Fluticasone Propionate Nasal 16 Gm [place]) 1 spray NOSTRIL-B DAILY PRN PRN Reason: Allergy Symptoms Hydromorphone HCl (Hydromorphone Hcl 0.5 Mg/0.5 Ml Syringe) 0.5 mg IVPUSH Q3H PRN; Protocol PRN Reason: Pain, Severe (Pain Scale 7-10) Last Admin: 05/15/24 22:39 Dose: 0.5 mg Documented By: LEONELA Ketorolac Tromethamine (Ketorolac Tromethamine 15 Mg/Ml Vial) 15 mg IVPUSH Q6H [facility] Stop: 05/18/24 19:59 Last Admin: 05/16/24 07:10 Dose: 15 mg Documented By: LILLY Magnesium Hydroxide (Milk Of Magnesia 30 Ml Oral.Susp) 30 ml PO DAILY PRN PRN Reason: Constipation Melatonin (Melatonin 3 Mg Tablet) 6 mg PO BEDTIME PRN PRN Reason: Insomnia Omeprazole (Omeprazole 40 Mg Capsule.Dr) 40 mg PO DAILY@0630 [facility] Last Admin: 05/16/24 06:04 Dose: 40 mg Documented By: LEONELA Ondansetron HCl (Ondansetron Hcl 4 Mg/2 Ml Vial) 4 mg IVPUSH Q8H PRN PRN Reason: Nausea and Vomiting Last Admin: 05/15/24 17:54 Dose: 4 mg Documented By: LILLY Oxycodone HCl (Oxycodone Hcl Immed Release 5 Mg Tablet) 5 mg PO Q6H PRN PRN Reason: Pain, Moderate(Pain Scale 4-6) Last Admin: 05/16/24 09:04 Dose: 5 mg Documented By: LILLY Prochlorperazine Edisylate (Prochlorperazine Edisylate 10 Mg/2 Ml Vial) 10 mg IVPUSH Q6H PRN PRN Reason: Nausea and Vomiting Last Admin: 05/13/24 17:56 Dose: 10 mg Documented By: ANDREW Sodium Chloride (0.9 % Sodium Chloride Flush 3 Ml Syringe) [facility] Last Admin: 05/16/24 07:10 Dose: 3 ml Documented By: LILLY Labs 05/10/24 15:16 05/10/24 15:16 Procedures Date of Service Date of Service: 05/16/24 Progress Note: A&P Assessment and plan (1) Abdominal pain: Status: Acute Plan Feels improved and tolerating solid diet with only mild abd cramping. Abd benign. Plan for dc to home on bentyl and PPI. F/u in office. Patient comfortable with plan. Time Spent With Patient Time: Total time managing care of this patient today ____ minutes. Quality Stroke Does the patient have a stroke diagnosis?: No VTE Prior VTE?: No VTE Risk Level:: Surgical - moderate VTE Device Contraindication: N/A - Device Ordered VTE Drug Contraindication: Treatment Not Indicated
--- NOTE | 2024-05-16 12:19 | MHC.CM.PN ---
DP: PT HAS BEEN MEDICALLY CLEARED FOR DC HOME, NO SERVICES.. [facility] WILL TRANSPORT HOME.
[2024-05-16] MEDS: HYDROmorphone HCl 0.5 MG/0.5 ML SYRINGE IVPUSH (12:46)
--- NOTE | 2024-05-16 12:47 | PM.DS ---
DS: Providers Provider Date of Service: 05/16/24 Date of admission: 05/10/24 18:58 Date of discharge: 05/16/24 Primary care physician: Cecile Sheldon NP Attending physician on admission: Kentrell Trotter Consults: 05/14/24 08:15 Consult to Gastroenterology Routine Consulting Provider: Blayne Bernardo Reason for consultation: Nausea, vomiting, diarrhea, abdominal pain after hernia repair 1 month Attending physician on discharge: Kentrell Trotter DS: Diagnosis Discharge Diagnosis (1) Abdominal pain: Status: Resolved DS: Summary Hospital Course Hospital Course: HPI AT ADMISSION: Radha returns to the office today with complaints of feeling weak and tired, with nausea/vomiting, and diarrhea. The diarrhea is up to 4-5 times daily in his associated with severe abdominal pain. She continues to have pain in the umbilicus as well as the right and left lower quadrants. She was initially seen in the office was subsequently sent to the emergency department for further evaluation. In the emergency department her laboratories were found to be normal and CT abdomen and pelvis revealed no evidence of intra-abdominal abscess. There was a small residual fluid collection in the subcutaneous tissue which is much smaller than on previous studies. There is no evidence of an intra-abdominal abscess. Possibility of C diff colitis was raised given the frequent bowel movements. Since the patient has been in the emergency department however she is not passed any further stool to be collected. HOSPITAL COURSE: She was admitted to the surgical service for further treatment of the abdominal pain, nausea/vomiting and diarrhea. Workup revealed a normal WBC and CT did not reveal any intra-abdominal infection. Since being hospitalized no further diarrhea has been reported. C diff colitis was suspected however this was monitored for further diarrhea. Her symptoms slowly improved and she had no further diarrhea. Her C diff titer was negative. She was thought to have an element of narcotic abdomen therefore encouraged her to back off on narcotic use. Her activity was encouraged to increase. She still had some lower abd pain and nausea and therefore gastroenterology was consulted for another opinion.She was started on trial of a proton pump inhibitor for possible reflux as a component of her nausea and dicyclomine 20 mg 3 times daily to help with any component of functional bowel disease. She reported improvement in her abd pain and nausea and her PO intake increased. On the day of discharge, she was tolerating a solid diet, had minimal abd pain and was comfortable. She had no further diarrhea. Her abdomen was benign and soft. She was discharged to home on 05/16/24 in stable condition. She was discharged to home on omeprazole and dicyclomine. She is to follow up in the office in 1 week. Status at Discharge Functional status at discharge: independent ambulation Overall status at discharge: patient is progressing back to baseline Time Attestation Discharge Coordination Time (in mins): 35 Quality: Safe Use of Opioids Does Pt have an Active Cancer Diagnosis on the Problem List?: No Quality: Stroke Does the patient have a stroke diagnosis?: No Physical Exam Vital Signs: Vital Signs: Last Vital Signs Temp 97.0 F 05/16/24 07:30 Pulse 65 05/16/24 07:30 Resp 16 05/16/24 07:30 BP 129/63 05/16/24 07:30 Pulse Ox 95 05/16/24 07:30 O2 Del Method Room Air 05/16/24 07:30 BMI result Body Mass Index 45.0 Const: General: comfortable, no acute distress and alert Orientation/consciousness: patient oriented x3 GI: Inspection: No distended Palpation (GI): Soft to palpation and no guarding Skin: General skin exam: no rashes or lesions noted Neuro: General: patient oriented x3 and moves all extremities DS: Data Data Completed and Pending Completed studies during hospitalization [Text1]: Procedures Drainage of Abdominal Wall with Drainage Device, Percutaneous Approach (04/12/24) Discharge Plan Discharge Anticipated Discharge Date/Time: 05/16/24 12:03 Patient Disposition: Home, Self-Care Discharge Diagnosis: abdominal pain Referrals: Kentrell Trotter MD [Physician] - 1 Week Cecile Sheldon NP [Primary Care Provider] - 1 Week Discharge Medications: New dicyclomine 10 mg Capsule 20 mg PO TIDAC Qty: 60 0RF ondansetron 8 mg tablet,disintegrating 8 mg PO Q8H PRN (Reason: nausea and vomiting) Qty: 20 0RF omeprazole 40 mg capsule,delayed release(DR/EC) 40 mg PO DAILY Qty: 30 0RF Continued clonazepam 1 mg tablet 1 mg PO TID PRN (Reason: Anxiety) ibuprofen 600 mg tablet 600 mg PO QID PRN (Reason: Pain) fluticasone propionate 50 mcg/actuation [place],Suspension 1 spray INTRANASAL DAILY PRN (Reason: Allergy Symptoms) Rx Instructions: administer into each nostril Liletta 20.4 mcg/24 hr (8 yrs) 52 mg Intrauterine Device 20.4 mcg INTRAUTERINE DIRECTED Rx Instructions: Every 8 years albuterol sulfate 90 mcg/actuation HFA aerosol inhaler 2 puff INHALATION Q6H duloxetine 60 mg capsule,delayed release(DR/EC) 60 mg PO DAILY@2000 No Action hydromorphone [Dilaudid] 2 mg tablet 2 mg PO Q6H PRN (Reason: pain (scale score 7-10)) Qty: 15 0RF Rx Instructions: Partial Fill upon patient request. Discharge Orders: Discharge Order (Routine); Ordered 05/16/24 Ordered By: Airam Goetz Diet: Advance to usual diet Activity on Discharge: As tolerated Stand Alone Forms: Patient Portal Discharge page Print Language: Arabic Activity Restrictions/Additional Instructions: Follow up in office in a week. ([phone]) Call Your Doctor If: ? ? -Your temperature exceeds 101.5? F? ? ? -You experience excessive pain or swelling ? ? -You have an unexpected reaction to medication ? ? -You experience continued vomiting/nausea Care Plan Goals: Return to baseline health and resume normal activities following recovery period. Health Concerns: abd pain, nausea/vomiting, diarrhea Plan of Treatment: Supportive Bentyl, PPI F/u in office and PCP Assessment: Improved Discharge Date/Time: 05/16/24 13:13
== END 2024-05-16 13:13 | disposition home or self-care (01) | DRG 392 ==
LOC: HO.ED 18:49 → HO.EDOVER 19:25 → HO.S3 05-11 14:31
PROVIDERS: Physician Assistant Medical; Admitting Provider Surgery; Emergency Provider Emergency Medicine; PCP Nurse Practitioner; Visit Provider Surgery
DX: R10.9 Unspecified abdominal pain (principal); Z20.822 Contact with and (suspected) exposure to COVID-19; Z79.899 Other long term (current) drug therapy
CPT/HCPCS: 0241U; 74177; 80048; 80076; 81003; 83690; 83735; 84702; 85025; 87493; 87507; 93005; 94640; 94664; 99221; 99285; J0737; J1171; J1885; J2270; J2405; J7120; Q9967

== ENCOUNTER → 2024-05-10 14:29 | Outpatient (BNV) | payer OTHER, SELFPAY | PROVIDERS: Admitting Provider Surgery; Emergency Provider Emergency Medicine; PCP Nurse Practitioner; Visit Provider Internal Medicine Cardiovascular Disease | DX: R94.31 Abnormal electrocardiogram [ECG] [EKG] (principal); R00.0 Tachycardia, unspecified | CPT/HCPCS: 93010 ==

== ENCOUNTER → 2024-05-10 15:05 | Outpatient (BNV) | payer OTHER, SELFPAY | PROVIDERS: Emergency Provider Emergency Medicine; PCP Nurse Practitioner; Visit Provider Radiology Vascular & Interventional Radiology | DX: R10.9 Unspecified abdominal pain (principal); R11.2 Nausea with vomiting, unspecified; R19.7 Diarrhea, unspecified | CPT/HCPCS: 74177 ==

== ENCOUNTER → 2024-05-10 18:58 | Outpatient (BNV) | payer OTHER, SELFPAY | PROVIDERS: Admitting Provider Surgery; Emergency Provider Emergency Medicine; PCP Nurse Practitioner; Visit Provider Surgery | DX: R10.9 Unspecified abdominal pain (principal); R11.2 Nausea with vomiting, unspecified | CPT/HCPCS: 99222; 99232 ==

== ENCOUNTER 2024-05-22 10:51 | Outpatient (AMB) | payer OTHER, SELFPAY ==
--- NOTE | 2024-05-22 10:52 | MHC.OFFVIS ---
Vital Signs 05/22/24 11:01 Height 5 ft 8 in Weight 295 lb 6.711 oz BMI 44.9 Intake Visit Reasons: 2 wk f/up umb hernia repair, wound check Intake Note: Patient is seen in office for 2 weeks follow up visit, wound check post umbilical hernia repair. Pt c/o: admit to feeling tired, states might be due to medication Chair Car Attendant Required: No Accompanied by: Family/Other Allergies cefaclor [From Ceclor] Allergy (Mild, Verified 05/22/24 10:52) Unknown codeine Allergy (Mild, Verified 05/22/24 10:52) Unknown HPI Comments Details: Patient returns for wound check following repair of an umbilical hernia with mesh. She continues to have colicky abdominal pain especially after eating. She was using the oxycodone but makes her feel jittery. She is trying to reduce the amount of narcotic she was taking however is still having the pain and finds that the pain medication does help. She was eating okay in her bowels are moving daily. [facility] Medical History Abdominal fluid collection Incisional hernia Surgical History Hx of umbilical hernia repair (04/04/24) History of laparoscopic cholecystectomy Previous section (~04/27/19) Social History Household Members: Spouse and Children Housing: House Do you presently have visiting nurse or other home services: No Alcohol intake: former Patient Tobacco Use Status: Former Tobacco user Substance Use Type: Marijuana Advance Directives Date on File: 05/11/24 service: No Physical Exam Vital Signs: BMI result Body Mass Index 44.9 Const General: no acute distress Nutritional Appearance: obese Orientation/consciousness: patient oriented x3 Resp Effort & Inspection: normal respiratory effort GI Other: Soft and nondistended. Umbilical incision is clean, dry, and intact without redness or discharge. No evidence of hernia recurrence or infection. Skin Other: Warm, dry, no rash Neuro General: patient oriented x3 Extrem General: Yes no clubbing, cyanosis or edema Assessment & Plan Assessment & Plan (1) Incisional hernia: Comment: supraumbilical s/p laparoscopic cholecystectomy Code(s): K43.2 - Incisional hernia without obstruction or gangrene Category: Medical Qualifiers: Obstruction and gangrene presence: without obstruction or gangrene Qualified Code(s): K43.2 - Incisional hernia without obstruction or gangrene (2) Abdominal pain, RUQ: Code(s): R10.11 - Right upper quadrant pain Category: Medical Plan Overall the patient is improving with no evidence of wound infection or hernia recurrence. She continues to have crampy pain when eating. Symptoms appear consistent with possible reflux and/or IBS. She was seen by Dr. Bernardo during her previous admission therefore I recommend she follow up with GI if her symptoms continue. She should follow up with our office as needed. Orders: Referrals Gastroenterology Referral R10.11 - Right upper quadrant pain Medications: New hydromorphone (Dilaudid) Partial Fill upon patient request. 2 mg PO Q6H 15 tabs 0RF K43.2 - Incisional hernia without obstruction or gangrene Discontinued tramadol Discontinued Reason: Patient no longer taking 100 mg PO Q6H PRN 10 tabs 0RF pain (scale score 7-10) K43.2 - Incisional hernia without obstruction or gangrene oxycodone Partial Fill upon patient request. Discontinued Reason: Patient no longer taking 5 mg PO Q6H PRN 30 tabs 0RF pain (scale score 7-10) Coding Level of Care Code Global (44676) Diagnoses Incisional hernia, without obstruction or gangrene K43.2 Obstruction and gangrene presence: without obstruction or gangrene Abdominal pain, RUQ R10.11
[2024-05-22 11:01] VITALS: BMI 44.9
== END 2024-05-22 11:12 | disposition home or self-care (01) ==
LOC: HO.HGS 10:52
PROVIDERS: PCP Nurse Practitioner; Visit Provider Surgery
DX: K43.2 Incisional hernia without obstruction or gangrene (principal); R10.11 Right upper quadrant pain
CPT/HCPCS: 99212

== ENCOUNTER → 2024-05-22 10:51 | Outpatient (BNVA) | payer OTHER, SELFPAY | PROVIDERS: PCP Nurse Practitioner; Visit Provider Surgery ==

== ENCOUNTER 2024-05-29 11:26 | Outpatient (AMB) | payer OTHER, SELFPAY ==
--- NOTE | 2024-05-29 11:34 | A.OFFVIS_ITS ---
Vital Signs 05/29/24 11:37 Height 5 ft 8 in Respiration 16 Pulse 70 Intake Visit Reasons: pt in pain, ? about mesh Intake Note: Patient is seen in office for wound check. Pt c/o: increase pain in the belly button, nausea, vomit, weakness, wondering if there is something wrong with the mesh that is causing all this issues Cutter And Edge Trimmer Required: No Accompanied by: Spouse Allergies cefaclor [From Ceclor] Allergy (Mild, Verified 05/29/24 11:37) Unknown codeine Allergy (Mild, Verified 05/29/24 11:37) Unknown HPI Comments Details: Patient reports nausea and vomiting, abdominal pain. She was concerned about her mesh being infected. Returns today for a wound check. She has an appointment to see Dr. Bernardo next month. [facility] Medical History Abdominal fluid collection Incisional hernia Surgical History Hx of umbilical hernia repair (04/04/24) History of laparoscopic cholecystectomy Previous section (~04/27/19) Social History Household Members: Spouse and Children Housing: House Do you presently have visiting nurse or other home services: No Alcohol intake: former Patient Tobacco Use Status: Former Tobacco user Substance Use Type: Marijuana Advance Directives Date on File: 05/11/24 service: No Physical Exam Vital Signs: Last Vital Signs Pulse 70 05/29/24 11:37 Resp 16 05/29/24 11:37 Const General: no acute distress Nutritional Appearance: obese Orientation/consciousness: patient oriented x3 Resp Effort & Inspection: normal respiratory effort GI Other: Soft and nondistended. Umbilical incision is clean, dry, and intact without redness or discharge. No evidence of hernia recurrence or infection. Skin Other: Warm, dry, no rash Neuro General: patient oriented x3 Extrem General: Yes no clubbing, cyanosis or edema Assessment & Plan Assessment & Plan (1) Diffuse abdominal pain: Code(s): R10.84 - Generalized abdominal pain Category: Medical Plan Patient returns for wound check following umbilical hernia repair. Her wounds are clean, dry, intact without palpable seroma, hematoma, recurrent hernia or evidence of infection. Patient was reassured. I recommended continuing the dicyclomine, Zofran PRN. She should follow up as needed. Medications: Changed From dicyclomine 20 mg (2 x 10 mg) PO TIDAC 60 caps 0RF To dicyclomine 20 mg (2 x 10 mg) PO QID 90 caps 2RF Refilled ondansetron 8 mg PO Q8H PRN 60 tabs 2RF nausea and vomiting Coding Level of Care Code Global (74733) Diagnoses Diffuse abdominal pain R10.84
[2024-05-29 11:37] VITALS: PULSE 70; RESP 16
== END 2024-05-29 11:55 | disposition home or self-care (01) ==
LOC: HO.HGS 11:26
PROVIDERS: PCP Nurse Practitioner; Visit Provider Surgery
DX: R10.84 Generalized abdominal pain (principal)
CPT/HCPCS: 99212

== ENCOUNTER → 2024-05-29 11:26 | Outpatient (BNVA) | payer OTHER, SELFPAY | PROVIDERS: PCP Nurse Practitioner; Visit Provider Surgery ==

== ENCOUNTER 2024-06-01 02:32 | Emergency (ER) | payer OTHER, SELFPAY ==
[2024-06-01 02:44] VITALS: BP 126/67; PULSE 85; RESP 16; TEMP 36.8; O2SAT 94; BMI 51.3
[2024-06-01 02:59] LABS: MANUAL DIFF FLAG NO
[2024-06-01 03:00] LABS: Basophils Percent Auto 0.4 % (0-2); Eosinophils Absolute Auto 0.2 X10*3/uL (0.0-0.4); Eosinophils Percent Auto 2.1 % (0-4); Imm Gran Abs Auto 0.03 X10*3/uL (0.00-0.03); Imm Gran Pct Auto 0.3 % (0.0-0.4); Lymphocytes Absolute Auto 2.6 X10*3/uL (1.2-4.9); Lymphocytes Percent Auto 25.1 % (20-40); Mean Corpuscular HGB Conc 35.1 g/dl (31.0-35.0); Mean Corpuscular Hemoglobin 29.8 pg (27.0-33.0); Mean Corpuscular Volume 84.9 fL (80.0-98.0); Mean Platelet Volume 9.8 fL (9.4-12.3); Monocytes Absolute Auto 0.7 X10*3/uL (0.1-1.2); Monocytes Percent Auto 6.6 % (2-11); Neutrophils Absolute Auto 6.9 x10*3/uL (2.0-8.3); Neutrophils Percent Auto 65.5 % (45-73); Platelet Count 346 X10*3/uL (160-400); Red Blood Count 4.36 X10*6/uL (4.20-5.50); Red Cell Distribution Width 12.8 % (11.0-16.0); White Blood Count 10.5 X10*3/uL (4.8-10.8)
[2024-06-01 03:20] LABS: Alanine Aminotransferase 34 U/L (0-31); Albumin Level 4.1 g/dL (3.5-5.0); Anion Gap 13 (12-20); Aspartate Amino Transferase 20 U/L (5-31); Bilirubin Total 0.2 mg/dL (0.0-1.0); Blood Urea Nitrogen 7 mg/dL (9-16); Calcium 9.3 mg/dL (8.4-10.2); Carbon Dioxide 23 mmol/L (22-29); Chloride 106 mmol/L (96-108); Creatinine Clr Calc Pharmacy 116.1; Estimated Glomerular Filt Rate > 60; Glucose Random 148 mg/dL (60-115); Potassium 3.8 mmol/L (3.3-5.1); Sodium 138 mmol/L (135-145); Total Protein 7.4 g/dL (6.5-8.0)
--- NOTE | 2024-06-01 03:43 | ED_ITS ---
HPI - Abdominal Pain General Chief Complaint: Abdominal Pain Stated Complaint: hernia/surgery-rt side pain Time Seen by Provider: 06/01/24 03:43 Source: patient Mode of arrival: ambulatory Limitations: no limitations History of Present Illness ED Provider: HPI narrative: Patient is status post umbilical hernia repair on 04/04 complicated by seroma which required IR drainage was admitted here again on 05/11 and discharged on 05/16 for pain in the lower abdomen diagnose as likely IBS patient was seen by Dr. Trotter on 05/29 for similar pain advised to follow with GI now patient comes here for the pain with nausea vomiting which is going on for a while no change in character of the pain having bowel movements daily patient has had 3 CT scans abdomen this year homework Related Data Home Medications ?Medication ?Instructions ?Recorded ?Confirmed duloxetine 60 mg capsule,delayed 60 mg PO DAILY@199902/21/24 05/10/24 release clonazepam 1 mg tablet 1 mg PO TID PRN Anxiety 04/12/24 05/10/24 fluticasone propionate 50 1 spray intranasal DAILY PRN 04/12/24 05/10/24 mcg/actuation nasal Allergy Symptoms spray,suspension ibuprofen 600 mg tablet 600 mg PO QID PRN Pain 04/12/24 05/10/24 levonorgestrel 20.4 mcg/24 hr (up 20.4 mcg intrauterine DIRECTED 04/12/24 05/10/24 to 8 yrs) 52 mg intrauterine device (Liletta) albuterol sulfate 90 mcg/actuation 2 puff inhalation Q6H 05/10/24 05/10/24 aerosol inhaler Previous Rx's ?Medication ?Instructions ?Recorded omeprazole 40 mg capsule,delayed 40 mg PO DAILY #30 caps 05/16/24 release hydromorphone 2 mg tablet 2 mg PO Q6H PRN pain (scale score 05/25/24 (Dilaudid) 7-10) #15 tabs dicyclomine 10 mg capsule 20 mg (2 x 10 mg) PO QID #90 caps 05/29/24 ondansetron 8 mg disintegrating 8 mg PO Q8H PRN nausea and 05/29/24 tablet vomiting #60 tabs Allergies Allergy/AdvReac Type Severity Reaction Status Date / Time cefaclor [From [facility]] Allergy Mild Unknown Verified 06/01/24 02:47 codeine Allergy Mild Unknown Verified 06/01/24 02:47 morphine AdvReac Headache Verified 06/01/24 02:47 oxycodone AdvReac Shakiness Verified 06/01/24 02:47 Review of Systems Review of Systems Yes all other systems are reviewed and are negative [facility] Past Medical History Medical History Abdominal fluid collection Incisional hernia Surgical History Hx of umbilical hernia repair (04/04/24) History of laparoscopic cholecystectomy Previous section (~04/27/19) Social History Social History Household Members: Spouse and Children Housing: House Do you presently have visiting nurse or other home services: No Alcohol intake: former Patient Tobacco Use Status: Former Tobacco user Smoked in Last 30 Days: No Use of substances other than those prescribed or required for medical reasons: Yes Substance Use Type: Marijuana Advance Directives: Yes Advance Directives Information Provided: Yes Advance Directives on File: No Advance Directives Date on File: 05/11/24 Patient : No service: No Physical Exam ED Vital Signs: Vital Signs - 24 hr 06/01/24 02:44 06/01/24 04:37 06/01/24 06:25 Temperature 98.2 F 98.5 F 98.5 F Pulse Rate 85 83 83 Respiratory Rate 16 18 18 Blood Pressure 126/67 118/67 118/67 Pulse Oximetry 94 98 98 Oxygen Delivery Method Room Air Room Air Room Air BMI result Body Mass Index 51.3 Appearance: Alert. Oriented X3. No acute distress. Eyes: PERRLA, No Nystagmus ENT: Pharynx normal. Oral Mucosa moist Neck: Normal inspection. Neck supple. CVS: Normal heart rate and rhythm. Pulses normal. Respiratory: No respiratory distress. Equal air entry bilateral, no wheezing/rales/rhonchi Abdomen: Soft and diffuse lower abdominal tenderness no rebound tenderness or guarding Bowel sounds are present, no mass palpable, no CVA tenderness Skin: Skin warm and dry. Normal skin color. Normal skin turgor. Extremities: No lower extremity edema. No calf tenderness Neuro: Oriented X 3. No motor deficit. No sensory deficit.No cerebellar signs , cranial nerves II-XII intact Medical Decision Making Medical Decision Making [facility] Narrative: Patient nonspecific diffuse abdominal pain for possible IBS been here multiple times had 3 CT scans after umbilical hernia and followed by surgeon who according to him likely IBS patient's relax and slept after Compazine and Ativan felt much better will discharge patient home advised to continue dicyclomine Lab Data [facility] Lab Attestation statement: I reviewed the patient's lab results. 06/01/24 02:54 06/01/24 02:54 Labs: Lab Results 06/01/24 06/01/24 Range/Units 02:54 05:11 WBC 10.5 (4.8-10.8) X10*3/uL RBC 4.36 (4.20-5.50) X10*6/uL Hgb 13.0 (12.0-16.0) g/dl Hct 37.0 (37.0-47.0) % MCV 84.9 (80.0-98.0) fL MCH 29.8 (27.0-33.0) pg MCHC 35.1 H (31.0-35.0) g/dl RDW 12.8 (11.0-16.0) % Plt Count 346 (160-400) X10*3/uL MPV 9.8 (9.4-12.3) fL Immature Gran % (Auto) 0.3 (0.0-0.4) % Neut % (Auto) 65.5 (45-73) % Lymph % (Auto) 25.1 (20-40) % [place] % (Auto) 6.6 (2-11) % Eos % (Auto) 2.1 (0-4) % Baso % (Auto) 0.4 (0-2) % Lymph # (Auto) 2.6 (1.2-4.9) X10*3/uL [place] # (Auto) 0.7 (0.1-1.2) X10*3/uL Eos # (Auto) 0.2 (0.0-0.4) X10*3/uL Baso # (Auto) 0.0 (0.0-0.2) X10*3/uL Abs Immat Gran (auto) 0.03 (0.00-0.03) X10*3/uL Absolute Neuts (auto) 6.9 (2.0-8.3) x10*3/uL Absolute Nucleated RBC 0.000 (0.0-0.012) X10*3/uL Nucleated RBC % (auto) 0.0 (0.0-0.2) /100WBC Sodium 138 (135-145) mmol/L Potassium 3.8 (3.3-5.1) mmol/L Chloride 106 (96-108) mmol/L Carbon Dioxide 23 (22-29) mmol/L Anion Gap 13 (12-20) BUN 7 L (9-16) mg/dL Creatinine 0.88 (0.5-1.4) mg/dL Estim Creat Clear Calc 116.1 Estimated GFR > 60 Random Glucose 148 H (60-115) mg/dL Calcium 9.3 (8.4-10.2) mg/dL Total Bilirubin 0.2 (0.0-1.0) mg/dL AST 20 (5-31) U/L ALT 34 H (0-31) U/L Alkaline Phosphatase 87 (39-117) U/L Total Protein 7.4 (6.5-8.0) g/dL Albumin 4.1 (3.5-5.0) g/dL Urine Color Yellow Urine Appearance Clear Urine pH 6.5 (5.0-9.0) Ur Specific [place] 1.015 (1.005-1.025) Urine Protein Negative (Neg-Trace) mg/dL Urine Glucose (UA) Negative (Negative) mg/dL Urine Ketones Negative (Negative) mg/dL Urine Blood Negative (Negative) Urine Nitrite Negative (Negative) Ur Leukocyte Esterase Negative (Negative) Urine RBC 0-2 (0-2) /HPF Urine WBC 0-5 (0-5) /HPF Ur Squamous Epith Cells 3-5 (0-2) /HPF Urine Bacteria Trace (None Seen) Hyaline Casts 0-2 (0-2) /LPF Urine Test NEGATIVE (NEGATIVE) Medications Administered Discontinued Medications Generic Name Dose Route Start Last Admin Trade Name Freq PRN Reason Stop Dose Admin Sodium Chloride 1,000 mls @ 999 mls/hr 06/01/24 04:06 06/01/24 06:12 Ns IV 06/01/24 05:06 Infused .Q1H1M ONE Infusion Ketorolac Tromethamine 30 mg 06/01/24 04:16 06/01/24 05:07 Ketorolac Tromethamine 30 Mg/Ml Vial IVPUSH 06/01/24 04:17 30 mg ONCE ONE Administration Lorazepam 2 mg 06/01/24 04:06 06/01/24 05:07 Lorazepam 2 Mg/Ml Vial IVPUSH 06/01/24 04:07 2 mg ONCE ONE Administration Prochlorperazine Edisylate 10 mg 06/01/24 04:06 06/01/24 05:07 Prochlorperazine Edisylate 10 Mg/2 Ml Vial IVPUSH 06/01/24 04:07 10 mg ONCE ONE Administration Discharge Plan Discharge Clinical Impression: Abdominal pain, chronic, generalized, Irritable bowel syndrome Patient Disposition: Home, Self-Care Instructions: Irritable Bowel Syndrome (DC), Abdominal Pain (ED) Additional Instructions: Continue medications 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 clonazepam 1 mg tablet 1 mg PO TID PRN (Reason: Anxiety) ibuprofen 600 mg tablet 600 mg PO QID PRN (Reason: Pain) fluticasone propionate 50 mcg/actuation [place],Suspension 1 spray INTRANASAL DAILY PRN (Reason: Allergy Symptoms) Rx Instructions: administer into each nostril Liletta 20.4 mcg/24 hr (8 yrs) 52 mg Intrauterine Device 20.4 mcg INTRAUTERINE DIRECTED Rx Instructions: Every 8 years albuterol sulfate 90 mcg/actuation HFA aerosol inhaler 2 puff INHALATION Q6H omeprazole 40 mg capsule,delayed release(DR/EC) 40 mg PO DAILY Qty: 30 0RF dicyclomine 10 mg capsule 20 mg PO QID Qty: 90 2RF ondansetron 8 mg tablet,disintegrating 8 mg PO Q8H PRN (Reason: nausea and vomiting) Qty: 60 2RF duloxetine 60 mg capsule,delayed release(DR/EC) 60 mg PO DAILY@1999 Interventions: ED Discharge Assessment Last Done: 06/01/24 06:25 Discharge Date/Time: 06/01/24 06:25 Print Language: Jamaican
[2024-06-01 04:13] LABS: Alkaline Phosphatase 87 U/L (39-117)
[2024-06-01 04:37] VITALS: BP 118/67; PULSE 83; RESP 18; TEMP 36.9; O2SAT 98
[2024-06-01] MEDS: 0.9 % Sodium Chloride 1,000 ML 999 ML IV (05:06)
[2024-06-01] MEDS: Prochlorperazine Edisylate 10 MG/2 ML VIAL IVPUSH (05:07)
[2024-06-01] MEDS: Ketorolac Tromethamine 30 MG/ML VIAL IVPUSH (05:07)
[2024-06-01] MEDS: LORazepam 2 MG/ML VIAL IVPUSH (05:07)
[2024-06-01 05:22] LABS: Appearance Urine Clear; Color Urine Yellow; Glucose Urine UA Negative (Negative); Leukocyte Esterase Urine Negative (Negative); Nitrite Urine Negative (Negative); PH 6.5 (5.0-9.0); Specific Gravity - Urine 1.015 (1.005-1.025); Urine Blood Negative (Negative); Urine Ketones Negative (Negative); Urine Protein Negative (Neg-Trace)
[2024-06-01 05:24] LABS: UPreg QC Valid YES; Urine Pregnancy NEGATIVE (NEGATIVE)
[2024-06-01 05:27] LABS: Bacteria Urine Trace (None Seen); Hyaline Casts Urine 0-2 /LPF (0-2); RBC Urine 0-2 /HPF (0-2); WBC Urine 0-5 /HPF (0-5)
[2024-06-01 06:25] VITALS: BP 118/67; PULSE 83; RESP 18; TEMP 36.9; O2SAT 98
== END 2024-06-01 06:25 | disposition home or self-care (01) ==
PROVIDERS: Emergency Provider Internal Medicine; PCP Nurse Practitioner
DX: K58.9 Irritable bowel syndrome, unspecified (principal); R10.84 Generalized abdominal pain; Z87.891 Personal history of nicotine dependence; Z79.899 Other long term (current) drug therapy
CPT/HCPCS: 36415; 80053; 81001; 81025; 85025; 96361; 96374; 96375; 99284; 99285; J0737; J1885; J2060

== ENCOUNTER 2024-06-06 16:03 | Emergency (ER) | payer OTHER, SELFPAY ==
--- NOTE | ~2024-06-06 | CT_ITS ---
CLINICAL HISTORY: S p umb. hernia repairc w infection, abd pain CT abdomen and pelvis with contrast Comparison: CT/SR - CT ABDOMEN PELVIS W IV CON - 05/10/24 17:06 EST Findings: The lung bases are clear. Previous cholecystectomy. No biliary ductal dilatation. The liver, spleen, pancreas, adrenal glands and kidneys are within normal limits. No ureteral stones and no hydronephrosis or hydroureter. No bowel obstruction, pneumoperitoneum, or pneumatosis. Mild diverticulosis descending colon. Postoperative changes in the umbilical region with interval resolution small loculated fluid collection with remaining thickening and scarring. No intra-abdominal fluid collection IUD in the uterus stable in position. Pelvic contents unremarkable. Normal appendix. No acute fracture. IMPRESSION: 1. Interval resolution of small loculated fluid collection in the umbilical region with only mild thickening and scarring remaining. 2. No acute intra-abdominal findings 3. Nonacute findings as described. This document has been electronically signed by: Miriam Ann MD on 06/06/2024 19:21:46
[2024-06-06 16:17] VITALS: BP 117/61; PULSE 89; RESP 12; TEMP 36.8; O2SAT 98; BMI 46.3
--- NOTE | 2024-06-06 16:36 | ECG_ITS ---
Test Reason : ABDOMINAL PAIN Blood Pressure : */* mmHG Vent. Rate : 82 BPM Atrial Rate : 82 BPM P-R Int : 158 ms QRS Dur : 80 ms QT Int : 364 ms P-R-T Axes : 15 -14 3 degrees QTcB Int : 425 ms Normal sinus rhythm Nonspecific T wave abnormality Abnormal ECG When compared with ECG of 10-May-2024 14:55, No significant change was found Referred By: Generic ED Physician Electronically Signed By: DUANE TRAVIS
--- NOTE | 2024-06-06 17:03 | ED.ABDPAIN ---
HPI - Abdominal Pain General Chief Complaint: Abdominal Pain Stated Complaint: hx ceroma, severe abd pain x24 hrs, NVD Time Seen by Provider: 06/06/24 16:48 Source: patient and EMS Mode of arrival: EMS Limitations: no limitations History of Present Illness ED Provider: DR. Dias HPI narrative: 38-year-old female came in by ambulance for evaluation of abdominal pain, nausea, and vomiting with no diarrhea, patient s/p umbilical hernia repair with mesh placement on 04/04/2024 C/W postoperative seroma and infection required multiple admission for IV antibiotic, patient also needed drainage. Patient also follow with Dr. Bernardo GI for abdominal cramps that is not improving with pantoprazole prescribed by Dr. Bernardo patient was scheduled to have CT abdomen pelvis by Dr. Bernardo this week. Related Data Home Medications ?Medication ?Instructions ?Recorded ?Confirmed duloxetine 60 mg capsule,delayed 60 mg PO DAILY@199902/21/24 05/10/24 release clonazepam 1 mg tablet 1 mg PO TID PRN Anxiety 04/12/24 05/10/24 fluticasone propionate 50 1 spray intranasal DAILY PRN 04/12/24 05/10/24 mcg/actuation nasal Allergy Symptoms spray,suspension ibuprofen 600 mg tablet 600 mg PO QID PRN Pain 04/12/24 05/10/24 levonorgestrel 20.4 mcg/24 hr (up 20.4 mcg intrauterine DIRECTED 04/12/24 05/10/24 to 8 yrs) 52 mg intrauterine device (Liletta) albuterol sulfate 90 mcg/actuation 2 puff inhalation Q6H 05/10/24 05/10/24 aerosol inhaler Previous Rx's ?Medication ?Instructions ?Recorded omeprazole 40 mg capsule,delayed 40 mg PO DAILY #30 caps 05/16/24 release hydromorphone 2 mg tablet 2 mg PO Q6H PRN pain (scale score 05/25/24 (Dilaudid) 7-10) #15 tabs dicyclomine 10 mg capsule 20 mg (2 x 10 mg) PO QID #90 caps 05/29/24 ondansetron 8 mg disintegrating 8 mg PO Q8H PRN nausea and 05/29/24 tablet vomiting #60 tabs hydromorphone 2 mg tablet 2 mg PO Q6H PRN pain #5 tabs 06/06/24 (Dilaudid) ondansetron 4 mg disintegrating 4 mg PO Q8-12H PRN nausea and 06/06/24 tablet vomiting #6 tabs Allergies Allergy/AdvReac Type Severity Reaction Status Date / Time cefaclor [From Ceclor] Allergy Mild Unknown Verified 06/06/24 16:19 codeine Allergy Mild Unknown Verified 06/06/24 16:19 morphine AdvReac Headache Verified 06/06/24 16:19 oxycodone AdvReac Shakiness Verified 06/06/24 16:19 Review of Systems Review of Systems All other systems are reviewed and are negative Constitutional: Reports as per HPI and Reports no additional constitutional complaints Eyes: Reports as per HPI and Reports no additional eye complaints Reports system reviewed and no additional complaints, except as documented Cardiovascular: Reports as per HPI and Reports no additional cardiovascular complaints Respiratory: Reports as per HPI and Reports no additional respiratory complaints Gastrointestinal: Reports as per HPI and Reports no additional gastrointestinal complaints Genitourinary: Reports no additional female genitourinary complaints Musculoskeletal: Reports no additional musculoskeletal complaints Skin/Breast: Reports system reviewed and no additional complaints, except as docu Psychiatric: Reports no additional psychiatric complaints Endocrine: Reports no additional endocrine complaints Hematologic/Lymphatic: Reports no additional hematologic/lymphatic complaints Allergic/Immunologic: Reports no additional allergic/immunologic complaints Reports system reviewed and no additional complaints, except as documented and Reports Abnormal speech present [facility] Past Medical History Medical History Abdominal fluid collection Incisional hernia Surgical History Hx of umbilical hernia repair (04/04/24) History of laparoscopic cholecystectomy Previous section (~04/27/19) Social History Social History Household Members: Spouse and Children Housing: House Do you presently have visiting nurse or other home services: No Alcohol intake: former Patient Tobacco Use Status: Former Tobacco user Smoked in Last 30 Days: No Substance Use Type: Marijuana Substance Use Frequency: Socially Advance Directives: No Advance Directives Information Provided: Yes Advance Directives Date on File: 05/11/24 Do you have a plan to hurt others: No Plan service: No Physical Exam ED Vital Signs: Vital Signs - 24 hr 04/02/25 16:17 06/06/24 18:55 Temperature 98.2 F 98.3 F Pulse Rate 89 87 Respiratory Rate 12 16 Blood Pressure 117/61 112/62 Pulse Oximetry 98 95 Oxygen Delivery Method Room Air Room Air BMI result Body Mass Index 46.3 Vital signs have been reviewed and appear to be correct. Blood pressure elevated. Heart rate normal. Respiratory rate normal. Temperature normal. Oxygen saturation normal. Appearance: Alert. Oriented X3. No acute distress. Head: Normal external exam. Normocephalic. Atraumatic. No Swann signs noted. No raccoon eyes noted Eyes: PERRLA. EOMI. Conjunctiva and sclera normal. Eyelids normal. ENT: TM's Normal. Pharynx normal. Uvula midline. Moist mucous membranes. No trismus noted. No drooling noted. No muffled voice noted. Neck: Normal inspection. Neck supple. FROM. No adenopathy. Thyroid Normal. No meningeal signs. No neck mass noted. CVS: Normal heart rate and rhythm. Heart sound normal. No murmurs noted. Pulses normal throughout. Respiratory: No respiratory distress. Painless inspiration. Breath sounds normal. No wheezes/rales/rhonchi noted. Chest nontender. No accessory muscle usage noted or decreased air movement noted. Abdomen: Soft, obese, mild tenderness around the umbilical area, no rebound tenderness, no guarding, Bowel sounds normal in all 4 quadrants. No distention noted. No organomegaly noted. No visible injury noted. Back: No CVA tenderness. Full range of motion noted. Skin: Skin warm and dry. Normal skin color. Normal skin turgor. No rashes/lesions/lacerations noted. Extremities: No lower extremity edema. Extremities exhibit normal range of motion. Extremities nontender. Neuro: Oriented X 3. Cranial nerve exam: II-XII are grossly intact No motor deficit. No sensory deficit. Reflexes normal. Course Reevaluation(s) Reevaluation #1: Acute on chronic abdominal pain, patient was examined by Dr. Story in the ED which he did not believe it is a surgical issue, CT showed resolution of the seroma and the fluid collection after the surgery, labs are unremarkable. Unable to urinate in the ED but declined dysuria, frequency urination, or hematuria. Patient was instructed to follow-up with Dr. Bernardo for further GI evaluation. Seems Dilaudid is the only medicine relieved the patient's pain will prescribe couple pills of Dilaudid and Zofran to control patient's symptoms until sees Dr. Bernardo. Time: 20:05 Medical Decision Making Differential Diagnosis Differential Diagnoses: The differential diagnosis associated with the presentation includes (Intra-abdominal abscess, intra-abdominal infection, colitis, diverticulitis, acute appendicitis, gastritis, electrolyte derangement, severe anemia.) Admission/Observation Consideration of admission/observation: Escalation of care including admission/observation considered Lab Data MDM Lab Attestation statement: I reviewed the patient's lab results. 06/06/24 17:13 06/06/24 17:12 Labs: Lab Results 06/06/24 06/06/24 06/06/24 Range/Units 17:12 17:12 17:12 WBC (4.8-10.8) X10*3/uL RBC (4.20-5.50) X10*6/uL Hgb (12.0-16.0) g/dl Hct (37.0-47.0) % MCV (80.0-98.0) fL MCH (27.0-33.0) pg MCHC (31.0-35.0) g/dl RDW (11.0-16.0) % Plt Count (160-400) X10*3/uL MPV (9.4-12.3) fL Immature Gran % (Auto) (0.0-0.4) % Neut % (Auto) (45-73) % Lymph % (Auto) (20-40) % [place] % (Auto) (2-11) % Eos % (Auto) (0-4) % Baso % (Auto) (0-2) % Lymph # (Auto) (1.2-4.9) X10*3/uL [place] # (Auto) (0.1-1.2) X10*3/uL Eos # (Auto) (0.0-0.4) X10*3/uL Baso # (Auto) (0.0-0.2) X10*3/uL Abs Immat Gran (auto) (0.00-0.03) X10*3/uL Absolute Neuts (auto) (2.0-8.3) x10*3/uL Absolute Nucleated RBC (0.0-0.012) X10*3/uL Nucleated RBC % (auto) (0.0-0.2) /100WBC Sodium 138 (135-145) mmol/L Potassium 3.9 (3.3-5.1) mmol/L Chloride 109 H (96-108) mmol/L Carbon Dioxide 22 (22-29) mmol/L Anion Gap 11 L (12-20) BUN 6 L (9-16) mg/dL Creatinine 0.65 (0.5-1.4) mg/dL Estim Creat Clear Calc 169.4 Estimated GFR > 60 Random Glucose 93 (60-115) mg/dL Calcium 9.1 (8.4-10.2) mg/dL Total Bilirubin 0.3 0.3 (0.0-1.0) mg/dL Direct Bilirubin 0.1 (0.0-0.5) mg/dL AST 29 29 (5-31) U/L ALT 43 H (0-31) U/L Alkaline Phosphatase (39-117) U/L Total Protein (6.5-8.0) g/dL Albumin (3.5-5.0) g/dL Lipase (8-78) U/L Beta HCG, Quant mIU/mL 06/06/24 06/06/24 06/06/24 Range/Units 17:12 17:12 17:12 WBC (4.8-10.8) X10*3/uL RBC (4.20-5.50) X10*6/uL Hgb (12.0-16.0) g/dl Hct (37.0-47.0) % MCV (80.0-98.0) fL MCH (27.0-33.0) pg MCHC (31.0-35.0) g/dl RDW (11.0-16.0) % Plt Count (160-400) X10*3/uL MPV (9.4-12.3) fL Immature Gran % (Auto) (0.0-0.4) % Neut % (Auto) (45-73) % Lymph % (Auto) (20-40) % [place] % (Auto) (2-11) % Eos % (Auto) (0-4) % Baso % (Auto) (0-2) % Lymph # (Auto) (1.2-4.9) X10*3/uL [place] # (Auto) (0.1-1.2) X10*3/uL Eos # (Auto) (0.0-0.4) X10*3/uL Baso # (Auto) (0.0-0.2) X10*3/uL Abs Immat Gran (auto) (0.00-0.03) X10*3/uL Absolute Neuts (auto) (2.0-8.3) x10*3/uL Absolute Nucleated RBC (0.0-0.012) X10*3/uL Nucleated RBC % (auto) (0.0-0.2) /100WBC Sodium (135-145) mmol/L Potassium (3.3-5.1) mmol/L Chloride (96-108) mmol/L Carbon Dioxide (22-29) mmol/L Anion Gap (12-20) BUN (9-16) mg/dL Creatinine (0.5-1.4) mg/dL Estim Creat Clear Calc Estimated GFR Random Glucose (60-115) mg/dL Calcium (8.4-10.2) mg/dL Total Bilirubin (0.0-1.0) mg/dL Direct Bilirubin (0.0-0.5) mg/dL AST (5-31) U/L ALT 42 H (0-31) U/L Alkaline Phosphatase 73 73 (39-117) U/L Total Protein 7.2 7.2 (6.5-8.0) g/dL Albumin 4.1 (3.5-5.0) g/dL Lipase (8-78) U/L Beta HCG, Quant mIU/mL 06/06/24 06/06/24 Range/Units 17:12 17:13 WBC 9.8 (4.8-10.8) X10*3/uL RBC 4.54 (4.20-5.50) X10*6/uL Hgb 13.4 (12.0-16.0) g/dl Hct 38.3 (37.0-47.0) % MCV 84.4 (80.0-98.0) fL MCH 29.5 (27.0-33.0) pg MCHC 35.0 (31.0-35.0) g/dl RDW 12.8 (11.0-16.0) % Plt Count 358 (160-400) X10*3/uL MPV 10.2 (9.4-12.3) fL Immature Gran % (Auto) 0.4 (0.0-0.4) % Neut % (Auto) 70.0 (45-73) % Lymph % (Auto) 21.5 (20-40) % [place] % (Auto) 6.3 (2-11) % Eos % (Auto) 1.4 (0-4) % Baso % (Auto) 0.4 (0-2) % Lymph # (Auto) 2.1 (1.2-4.9) X10*3/uL [place] # (Auto) 0.6 (0.1-1.2) X10*3/uL Eos # (Auto) 0.1 (0.0-0.4) X10*3/uL Baso # (Auto) 0.0 (0.0-0.2) X10*3/uL Abs Immat Gran (auto) 0.04 H (0.00-0.03) X10*3/uL Absolute Neuts (auto) 6.9 (2.0-8.3) x10*3/uL Absolute Nucleated RBC 0.000 (0.0-0.012) X10*3/uL Nucleated RBC % (auto) 0.0 (0.0-0.2) /100WBC Sodium (135-145) mmol/L Potassium (3.3-5.1) mmol/L Chloride (96-108) mmol/L Carbon Dioxide (22-29) mmol/L Anion Gap (12-20) BUN (9-16) mg/dL Creatinine (0.5-1.4) mg/dL Estim Creat Clear Calc Estimated GFR Random Glucose (60-115) mg/dL Calcium (8.4-10.2) mg/dL Total Bilirubin (0.0-1.0) mg/dL Direct Bilirubin (0.0-0.5) mg/dL AST (5-31) U/L ALT (0-31) U/L Alkaline Phosphatase (39-117) U/L Total Protein (6.5-8.0) g/dL Albumin 4.1 (3.5-5.0) g/dL Lipase 8 (8-78) U/L Beta HCG, Quant < 2 mIU/mL Independent Interpretation I performed an independent interpretation of an: CT Scan (Abdomen and pelvis:. Interval resolution of small loculated fluid collection in the umbilical region with only mild thickening and scarring remaining. 2. No acute intra-abdominal findings 3. Nonacute findings as described.) Radiology Impression Discussion of test interpretation with radiology: I have reviewed the radiologist's reading. Medications Administered Discontinued Medications Generic Name Dose Route Start Last Admin Trade Name Freq PRN Reason Stop Dose Admin Hydromorphone HCl 1 mg 06/06/24 16:56 06/06/24 17:18 Hydromorphone Hcl 1 Mg/Ml Syringe IVPUSH 06/06/24 16:57 1 mg ONCE ONE Administration Protocol Hydromorphone HCl 1 mg 06/06/24 20:03 06/06/24 20:56 Hydromorphone Hcl 1 Mg/Ml Syringe IVPUSH 06/06/24 20:04 1 mg ONCE ONE Administration Protocol Sodium Chloride 1,000 mls @ 999 mls/hr 06/06/24 16:56 06/06/24 17:18 Ns IV 06/06/24 17:56 999 mls/hr .Q1H1M ONE Administration Iohexol 100 ml 06/06/24 18:26 06/06/24 18:28 Iohexol 350 Mg/Ml 100 Ml Infus..Btl IV 06/06/24 18:27 85 ml ONCE ONE Administration Ketorolac Tromethamine 15 mg 06/06/24 16:56 06/06/24 17:18 Ketorolac Tromethamine 15 Mg/Ml Vial IVPUSH 06/06/24 16:57 15 mg ONCE ONE Administration Ondansetron HCl 4 mg 06/06/24 16:56 06/06/24 17:18 Ondansetron Hcl 4 Mg/2 Ml Vial IVPUSH 06/06/24 16:57 4 mg ONCE ONE Administration Ondansetron HCl 4 mg 06/06/24 20:03 06/06/24 20:56 Ondansetron Hcl 4 Mg/2 Ml Vial IVPUSH 06/06/24 20:04 4 mg ONCE ONE Administration Discharge Plan Discharge Clinical Impression: Abdominal pain, Vomiting Patient Disposition: Home, Self-Care Instructions: Abdominal Pain (ED) Prescriptions: New hydromorphone [Dilaudid] 2 mg tablet 2 mg PO Q6H PRN (Reason: pain) Qty: 5 0RF Rx Instructions: Partial Fill upon patient request. ondansetron 4 mg tablet,disintegrating 4 mg PO Q8-12H PRN (Reason: nausea and vomiting) Qty: 6 0RF No Action hydromorphone [Dilaudid] 2 mg tablet 2 mg PO Q6H PRN (Reason: pain (scale score 7-10)) Qty: 15 0RF Rx Instructions: Partial Fill upon patient request. clonazepam 1 mg tablet 1 mg PO TID PRN (Reason: Anxiety) ibuprofen 600 mg tablet 600 mg PO QID PRN (Reason: Pain) fluticasone propionate 50 mcg/actuation [place],Suspension 1 spray INTRANASAL DAILY PRN (Reason: Allergy Symptoms) Rx Instructions: administer into each nostril Liletta 20.4 mcg/24 hr (8 yrs) 52 mg Intrauterine Device 20.4 mcg INTRAUTERINE DIRECTED Rx Instructions: Every 8 years albuterol sulfate 90 mcg/actuation HFA aerosol inhaler 2 puff INHALATION Q6H omeprazole 40 mg capsule,delayed release(DR/EC) 40 mg PO DAILY Qty: 30 0RF dicyclomine 10 mg capsule 20 mg PO QID Qty: 90 2RF ondansetron 8 mg tablet,disintegrating 8 mg PO Q8H PRN (Reason: nausea and vomiting) Qty: 60 2RF duloxetine 60 mg capsule,delayed release(DR/EC) 60 mg PO DAILY@1999 Referrals: Blayne Bernardo MD [Physician] - Cecile Sheldon NP [Primary Care Provider] - Print Language: Chinese
[2024-06-06 17:18] LABS: MANUAL DIFF FLAG NO
[2024-06-06] MEDS: 0.9 % Sodium Chloride 1,000 ML 999 ML IV (17:18)
[2024-06-06] MEDS: Ketorolac Tromethamine 15 MG/ML VIAL IVPUSH (17:18)
[2024-06-06] MEDS: HYDROmorphone HCl 1 MG/ML SYRINGE IVPUSH ×2 (17:18→20:56)
[2024-06-06] MEDS: ondansetron HCL 4 MG/2 ML VIAL IVPUSH ×2 (17:18→20:56)
[2024-06-06 17:24] LABS: Basophils Percent Auto 0.4 % (0-2); Eosinophils Absolute Auto 0.1 X10*3/uL (0.0-0.4); Eosinophils Percent Auto 1.4 % (0-4); Hematocrit 38.3 % (37.0-47.0); Hemoglobin 13.4 g/dl (12.0-16.0); Imm Gran Abs Auto 0.04 X10*3/uL (0.00-0.03); Imm Gran Pct Auto 0.4 % (0.0-0.4); Lymphocytes Absolute Auto 2.1 X10*3/uL (1.2-4.9); Lymphocytes Percent Auto 21.5 % (20-40); Mean Corpuscular Hemoglobin 29.5 pg (27.0-33.0); Mean Corpuscular Volume 84.4 fL (80.0-98.0); Mean Platelet Volume 10.2 fL (9.4-12.3); Monocytes Absolute Auto 0.6 X10*3/uL (0.1-1.2); Monocytes Percent Auto 6.3 % (2-11); Neutrophils Absolute Auto 6.9 x10*3/uL (2.0-8.3); Platelet Count 358 X10*3/uL (160-400); Red Blood Count 4.54 X10*6/uL (4.20-5.50); Red Cell Distribution Width 12.8 % (11.0-16.0); White Blood Count 9.8 X10*3/uL (4.8-10.8)
[2024-06-06 17:34] LABS: Alanine Aminotransferase 42 U/L (0-31); Albumin Level 4.1 g/dL (3.5-5.0); Alkaline Phosphatase 73 U/L (39-117); Anion Gap 11 (12-20); Aspartate Amino Transferase 29 U/L (5-31); Bilirubin Direct 0.1 mg/dL (0.0-0.5); Bilirubin Total 0.3 mg/dL (0.0-1.0); Blood Urea Nitrogen 6 mg/dL (9-16); Calcium 9.1 mg/dL (8.4-10.2); Carbon Dioxide 22 mmol/L (22-29); Chloride 109 mmol/L (96-108); Creatinine Clr Calc Pharmacy 169.4; Estimated Glomerular Filt Rate > 60; Glucose Random 93 mg/dL (60-115); Lipase 8 U/L (8-78); Potassium 3.9 mmol/L (3.3-5.1); Sodium 138 mmol/L (135-145); Total Protein 7.2 g/dL (6.5-8.0)
[2024-06-06 17:57] LABS: Alanine Aminotransferase 43 U/L (0-31)
[2024-06-06 17:58] LABS: HCG Quantitative < 2 mIU/mL
--- OUTSIDE RECORDS SUMMARY | 2024-06-06 18:07 | XMS_ITS ---
Author Organization [facility] Address [address] [place] [address] Care Team Providers Care Drilling Manager Name Role Phone Cecile Akers Primary Care Provider Unav ailable Blayne Bernardo Jr Unavailable Kentrell Trotter Unavailable Unavailable REASON FOR VISIT ACHEY,PUKING , ABD PAIN,99.8 TEMP, PT GOING TO ER Encounters Encounter Location Date Provider Diagnosis [facility] [address] [place] [address] 06/06/2024 Blayne Bernardo Jr Plan Of Treatment Next Appt Details Provider Name:Blayne lowery Jr, 08/27/2024 10:00:00 AM, [address], [address], [place], [address], Progress Notes * HODA MONZON TDOB:1985 (38 yo F)Acc No.[id number]:06/06/2024 Patient:?HODA MONZON :1985???Age:38 Y???Sex:Female Address:[place] [address] * true * Date:? Generated for Printi radha/Rocio/eTransmitting on:?06/06/2024 06:07 PM EDT
--- OUTSIDE RECORDS SUMMARY | 2024-06-06 18:07 | XMS_ITS ---
Author Organization [facility] Address [address] [place] [address] Care Team Providers Care Pet Nutrition Specialist Name Role Phone Cecile Akers Primary Care Provider Unav ailable Az Hamilton, Blayne Unavailable Kentrell Trotter Unavailable Unavailable REASON FOR VISIT FYI Encounters Encounter Location Date Provider Diagnosis [facility] [address] [place] [address] 06/04/2024 Blayne Bernardo Jr Plan Of Treatment Next Appt Details Provider Name:Blayne lowery Jr, 08/27/2024 10:00:00 AM, [address] [facility], [address], [place], [address], Progress Notes * HODA MONZON TDOB:1985 (38 yo F)Acc No.[id number]:06/04/2024 Patient:?HODA MONZON :1985???Age:38 Y???Sex:Female Address:[place] [address] * true * Date:? Generated for Tennillei radha/Rocio/eTransmitting on:?06/06/2024 06:07 PM EDT
--- OUTSIDE RECORDS SUMMARY | 2024-06-06 18:07 | XMS_ITS | Patient Health Record ---
Author Organization [facility] Address [address] [place] [address] Care Team Providers Care Construction Materials Tester Name Role Phone Cecile Akers Primary Care Provider UnaBlayne Peng Jr Unavailable [phone] Kentrell Trotter Unavailable Unavailable Allergies Allergen (clinical drug ingredient) Drug/Non Drug Allergy documented on EMR Reaction Allergy Type Onset Date Status cefaclor Cefaclor Unknown Drug Allergy Active codeine Codeine Unknown Drug Allergy Active Reason For Referral No Information Medications Medication SIG (Take, Route, Frequency, Duration) Notes Start Date End Date Status clonazePAM 0.5 MG 1 tablet Orally Once a day 06/04 Active DULoxetine HCl 60 MG 1 capsule Orally On ce a day for 30 day(s) 06/04/2024 Active Bentyl 10 MG/ML 1 mL Intramuscular F our times a day for 2 day(s) 06/04/2024 Active Flonase Allergy Relief 50 MCG/ACT 1 spray in each nostril Nasally Twice a day for 30 day(s) 06/04/2024 Active PriLOSEC OTC 20 MG 1 tablet 1/2 to 1 ho ur before morning meal Orally Once a day for 30 day(s) 06/04/2024 Active Immunizations Vaccine Route Administration Date Status Comme nts Influenza Unknown 12/27/2023 Administered Social History Tobacco Use: Social History Observation Description Date Details (start date - stop date) Never Smoker NA - NA Tobacco Control (Standard) Question Answer Notes Tobacco use: Nonsmoker AUDIT-C (Standard) Question Answer Notes Did you have a drink containing alcohol in the p ast year? No Points 0 Interpretation Negative Vital Signs Temperature 97.9 degrees Fahrenheit 06/04/2024 Blood pressure diastolic 01 mm Hg 06/04/2024 Height 63 in 06/04/2024 Blood pressure systolic 001 mm Hg 06/04/2024 Weight 291.6 lbs 06/04/2024 BMI 51.65 kg/m2 06/04/2024 Encounters Encounter Location Date Provider Diagnosis [facility] [address] [place] [address] 06/04/2024 Blayne Bernardo Jr Generalized abdominal pain R10.84 [facility] [address] [place] [address] 06/04/2024 Blayne Bernardo Jr [facility] [address] [place] [address] 06/05/2024 Blayne Bernardo Jr [facility] [address] [place] [address] 06/06/2024 Blayne Bernardo Jr Assessments Encounter Date Diagnosis (ICD Code) Assessment Notes Treatment Notes Treatment Clinical Notes Section Notes 06/04/2024 Generalized abdominal pain (ICD-10 - R10.84) We discussed her symptoms today. She will have further evaluation with laboratory studies and imaging, because of her history of previous fluid collection on CT scanning at the site of her abdominal hernia repair. She will continue dicyclomine. She will check on her dose of omeprazole and let us know the exact amount, as we may need to increase this to 40 mg daily if she is not already taking this. Further evaluation with upper endoscopy may be necessary. Plan Of Treatment Pending Test Test Name Order Date BUN 06/04/2024 CREATININE 06/04/2024 LIVER PROFILE 06/04/2024 LIPASE 06/04/2024 CBC w/o DIFF 06/04/2024 CT ABD & PELVIS WITH CONTRAST 06/04/2024 Next Appt Details Provider Name:Blayne lowery Jr, 08/27/2024 10:00:00 AM, [address], [address], [place], [address], Insurance Providers Payer Name Payer Address Payer Phone Subscriber Number Group Number Insured Name Patient Relationship to Insured Coverage Start Date Coverage End Date [employer] [address] [place] [address] [id number] HODA MONZON Self - patient is the insured 5 Medical (General) History Medical History History ICD Code Psoriasis Anxiety Surgical History Surgery Date(Month/Year) Cholecystectomy section Umbilical herniorrhaphy with mesh 03/2024 Hospitalization History Reason Date(Month/Year) multiple hospitalizations after keven nugent
--- OUTSIDE RECORDS SUMMARY | 2024-06-06 18:08 | XMS_ITS ---
Author Organization [facility] Address [address] [place] [address] Care Team Providers Care Eyeglass Fitter Name Role Phone Cecile Akers Primary Care Provider Unav ailable Az Hamilton, Blayne Unavailable Kentrell Trotter Unavailable Unavailable REASON FOR VISIT note/ Encounters Encounter Location Date Provider Diagnosis [facility] [address] [place] [address] 06/05/2024 Blayne Bernardo Jr Plan Of Treatment Next Appt Details Provider Name:Blayne lowery Jr, 08/27/2024 10:00:00 AM, [address] [facility], [address], [place], [address], Progress Notes * HODA MONZON TDOB:1985 (38 yo F)Acc No.[id number]:06/05/2024 Patient:?HODA MONZON :1985???Age:38 Y???Sex:Female Address:[place] [address] * true * Date:? Generated for Raissa garcia/Rocio/eTransmitting on:?06/06/2024 06:07 PM EDT
[2024-06-06] MEDS: iohexoL 350 MG/ML 100 ML INFUS..BTL IV (18:28)
[2024-06-06 18:55] VITALS: BP 112/62; PULSE 87; RESP 16; TEMP 36.8; O2SAT 95
[2024-06-06 20:08] VITALS: BP 111/65; PULSE 93; RESP 18; TEMP 36.8; O2SAT 97
[2024-06-06 21:15] VITALS: BP 111/65; PULSE 93; RESP 18; TEMP 36.8; O2SAT 97
== END 2024-06-06 21:20 | disposition home or self-care (01) ==
PROVIDERS: Emergency Provider Emergency Medicine; PCP Nurse Practitioner
DX: R10.2 Pelvic and perineal pain (principal); R11.2 Nausea with vomiting, unspecified; R94.31 Abnormal electrocardiogram [ECG] [EKG]; Z79.899 Other long term (current) drug therapy; Z87.891 Personal history of nicotine dependence
CPT/HCPCS: 36415; 74177; 80053; 80076; 82248; 83690; 84702; 85025; 93005; 96361; 96374; 96375; 96376; 99285; J1171; J1885; J2405; Q9967

== ENCOUNTER → 2024-06-06 16:36 | Outpatient (BNV) | payer OTHER, SELFPAY | PROVIDERS: Emergency Provider Emergency Medicine; PCP Nurse Practitioner; Visit Provider Internal Medicine | DX: R94.31 Abnormal electrocardiogram [ECG] [EKG] (principal); R10.9 Unspecified abdominal pain | CPT/HCPCS: 93010 ==

== ENCOUNTER → 2024-06-06 16:57 | Outpatient (BNV) | payer OTHER, SELFPAY | PROVIDERS: Emergency Provider Emergency Medicine; PCP Nurse Practitioner; Visit Provider Specialist | DX: R19.05 Periumbilic swelling, mass or lump (principal) | CPT/HCPCS: 74177 ==

== ENCOUNTER 2024-06-11 15:26 | Emergency (ER) | payer OTHER, SELFPAY ==
--- NOTE | ~2024-06-11 | CT_ITS ---
CLINICAL HISTORY: RLQ pain, CT abdomen and pelvis with contrast Comparison: CT/SR - CT ABDOMEN PELVIS W IV CON - 06/06/24 18:25 EDT Findings: No consolidation or effusion. Hepatomegaly. Thickening of the bilateral adrenal glands, nonspecific. Bilateral perinephric stranding, nonspecific. No urolithiasis. Mildly diffuse colonic mural thickening. No bowel obstruction. Similar periumbilical skin thickening/scarring. No large discrete collections. Elongated anteverted uterus with IUD in the mid uterine body, stable from prior. Scattered colonic diverticulosis without diverticulitis. Normal appendix. Enlarging right adnexal cysts, largest measuring 3.2 cm. The bones are intact. Postcholecystectomy. IMPRESSION: 1. Enlarging right adnexal cysts. This may be further evaluated with ultrasound. 2. Mildly diffuse colonic mural thickening, may be related to degree of under distention or mild colitis. This document has been electronically signed by: Lance Ellis MD on 06/11/2024 21:40:55
--- NOTE | ~2024-06-11 | US_ITS ---
CLINICAL HISTORY: Right pelvic pain, r o torsion US pelvis transvaginal Comparison: CT/SR - CT ABDOMEN PELVIS W IV CON - 06/11/24 20:[address]/SR - CT ABDOMEN PELVIS W IV CON - 03/14/24 13:21 EST Findings: Transvaginal scanning performed. Anteverted uterus is 4.6 x 5.8 cm. Normal myometrium. No endometrial lesion, 6 mm thickness. IUD redemonstrated along the mid/lower uterine segment. Finding is in similar position from same day CT as well dating back to the oldest CT from 03/14/2024. Correlation with initial placement and/or gynecologic consult advised. Right ovary 4.4 x 3.2 x 3.9 cm. Right ovarian cysts, largest measuring 2.7 x 2.7 x 2.9 cm and smaller measuring 2.2 x 1.2 x 2.3 cm, simple appearing. Left ovary 2.9 x 2.1 x 2.5 cm, difficult to visualized. Normal color Doppler of both ovaries. No free fluid. IMPRESSION: No evidence for ovarian torsion. Simple appearing right ovarian cysts. Consider follow-up in 6-12 weeks. Similar low-lying IUD, please see above. This document has been electronically signed by: Lance Ellis MD on 06/12/2024 02:20:00
[2024-06-11 15:41] VITALS: BP 146/92; PULSE 130; RESP 22; TEMP 37.3; O2SAT 94; BMI 43.9
--- NOTE | 2024-06-11 15:44 | ECG_ITS ---
Test Reason : ABD PAIN Blood Pressure : */* mmHG Vent. Rate : 99 BPM Atrial Rate : 99 BPM P-R Int : 144 ms QRS Dur : 74 ms QT Int : 340 ms P-R-T Axes : -28 -9 -18 degrees QTcB Int : 436 ms Normal sinus rhythm Septal infarct , age undetermined Abnormal ECG When compared with ECG of 06-Jun-2024 16:53, Septal infarct is now Present No significant change was found Referred By: Dima Foreman Electronically Signed By: Rashi Camara
--- NOTE | 2024-06-11 15:45 | ED.GENADULT ---
HPI - General Adult General Chief complaint: Abdominal Pain Stated complaint: abd pain,vomiting,passed out Time Seen by Provider: 06/11/24 19:31 Source: patient Limitations: no limitations History of Present Illness ED Provider: Coby Orozco PA-C HPI narrative: 38-year-old female with a history of obesity, s/p cholecystectomy, , umbilical hernia repair by Dr. Trotter on 04/04/2024 complicated by seroma which was treated with course of antibiotics/IR placed drain, who presents with ongoing refractory abdominal pain with nausea vomiting diarrhea for over a month. No change in the patient's symptoms, while vomiting she passed out today. Patient states she has intermittently febrile at home. When she has a bowel movement, she states it is pale/green yellow in color, having 2 bowel movements a day. She has followed up with her surgeon since, she is pending a colonoscopy given her refractory symptoms. Related Data Home Medications ?Medication ?Instructions ?Recorded ?Confirmed duloxetine 60 mg capsule,delayed 60 mg PO DAILY@199902/21/24 05/10/24 release clonazepam 1 mg tablet 1 mg PO TID PRN Anxiety 04/12/24 05/10/24 fluticasone propionate 50 1 spray intranasal DAILY PRN 04/12/24 05/10/24 mcg/actuation nasal Allergy Symptoms spray,suspension ibuprofen 600 mg tablet 600 mg PO QID PRN Pain 04/12/24 05/10/24 levonorgestrel 20.4 mcg/24 hr (up 20.4 mcg intrauterine DIRECTED 04/12/24 05/10/24 to 8 yrs) 52 mg intrauterine device (Liletta) albuterol sulfate 90 mcg/actuation 2 puff inhalation Q6H 05/10/24 05/10/24 aerosol inhaler Previous Rx's ?Medication ?Instructions ?Recorded omeprazole 40 mg capsule,delayed 40 mg PO DAILY #30 caps 05/16/24 release hydromorphone 2 mg tablet 2 mg PO Q6H PRN pain (scale score 05/25/24 (Dilaudid) 7-10) #15 tabs dicyclomine 10 mg capsule 20 mg (2 x 10 mg) PO QID #90 caps 05/29/24 ondansetron 8 mg disintegrating 8 mg PO Q8H PRN nausea and 05/29/24 tablet vomiting #60 tabs hydromorphone 2 mg tablet 2 mg PO Q6H PRN pain #5 tabs 06/06/24 (Dilaudid) ondansetron 4 mg disintegrating 4 mg PO Q8-12H PRN nausea and 06/06/24 tablet vomiting #6 tabs dicyclomine 20 mg tablet 20 mg PO QID PRN abdominal pain 06/12/24 #16 tabs metoclopramide HCl 10 mg tablet 10 mg PO Q6H PRN nausea and 06/12/24 (Reglan) vomiting #12 tabs sucralfate 100 mg/mL oral 10 ml PO QID PRN indigestion #300 06/12/24 suspension (Carafate) mL Allergies Allergy/AdvReac Type Severity Reaction Status Date / Time c[facility] [From [facility]] Allergy Mild Unknown Verified 06/11/24 15:44 codeine Allergy Mild Unknown Verified 06/11/24 15:44 morphine AdvReac Headache Verified 06/11/24 15:44 oxycodone AdvReac Shakiness Verified 06/11/24 15:44 PMFSH Past Medical History Medical History Abdominal fluid collection Incisional hernia Surgical History Hx of umbilical hernia repair (04/04/24) History of laparoscopic cholecystectomy Previous section (~04/27/19) Social History Social History Household Members: Spouse and Children Housing: House Do you presently have visiting nurse or other home services: No Alcohol intake: former Patient Tobacco Use Status: Former Tobacco user Substance Use Type: Marijuana Advance Directives Date on File: 05/11/24 service: No Physical Exam ED Vital Signs: Vital Signs - 24 hr 06/11/24 15:41 06/11/24 18:05 06/11/24 19:53 Temperature 99.2 F 98.1 F Pulse Rate 130 H 84 Respiratory Rate 22 H 20 16 Blood Pressure 146/92 H 116/72 Pulse Oximetry 94 94 Oxygen Delivery Method Room Air Room Air 06/11/24 19:56 06/11/24 22:12 06/12/24 01:42 Temperature 97.9 F 97.6 F 97.6 F Pulse Rate 87 86 89 Respiratory Rate 16 16 17 Blood Pressure 132/87 144/87 H 148/89 H Pulse Oximetry 94 94 98 Oxygen Delivery Method Room Air Room Air Room Air 06/12/24 04:00 06/12/24 04:34 Temperature 98.0 F 98.0 F Pulse Rate 75 75 Respiratory Rate 15 15 Blood Pressure 142/86 H 142/86 H Pulse Oximetry 96 96 Oxygen Delivery Method Room Air Room Air BMI result Body Mass Index 43.9 Course Course Course Narrative: RME: 38-year-old female presents to ED for abdominal pain, vomiting and passed out. Patient states history of abdominal pain and vomiting for about a month due to infected mesh hernia which led to intestinal issues. Patient has follow-up with scale tank operator for endoscopic and colonoscopy but patient presents to ED today. Abdominal pain and vomiting is worse with caused her to pass out. Positive for abdominal tenderness. Lab EKG ordered. Reevaluation(s) Reevaluation #1: I had already discussed with the patient that her CT scan is improved there was no fluid within the abdominal wall, however there were findings of multiple right adnexal cysts, perhaps this is the source of new pain, and that we will be obtaining a transvaginal ultrasound. I also relayed to her that she may have mild colitis. However, this should not account for her extreme symptoms. I also discussed with the patient that I reviewed her prescription history, that she has numerous prescriptions for narcotics. She states ?I do not want to take narcotics I do not take them at home, I keep telling them I do not want it, I have thrown them out?. Patient also states that the Zofran does not work at home, however it is helpful here. The patient was already been drinking jean hannah. The plan is to p.o. challenge her, give some Bentyl and reassess. I am not giving anymore narcotic analgesia. Time: 02:42 Reevaluation #2: P.o. challenge, the patient ate half a sandwich and multiple drinks. In chart review, it was thought that she may have poorly controlled GERD, IBS, or combination of both, hence her gastroenterology consult pending. I will be sending her with a different antiemetic, she states she has Zofran at home. Also sending with Carafate and more Bentyl. The patient was asking for pain medication prior to her discharge, I will give a 1 time dose of oral Dilaudid. I again questioned her about medications that she has a at home, she insists that she was throwing them all away. Again, her presentation is very concerning for narcotic-seeking behaviors. Time: 03:41 Medications Administered Discontinued Medications Generic Name Dose Route Start Last Admin Trade Name Lisandro PRN Reason Stop Dose Admin Dicyclomine HCl 20 mg 06/12/24 02:41 06/12/24 02:51 Dicyclomine Hcl 10 Mg Capsule PO 06/12/24 02:42 20 mg ONCE ONE Administration Hydromorphone HCl 1 mg 06/11/24 19:45 06/11/24 19:53 Hydromorphone Hcl 1 Mg/Ml Syringe IVPUSH 06/11/24 19:46 1 mg ONCE ONE Administration Protocol Hydromorphone HCl 1 mg 06/11/24 23:09 06/11/24 23:16 Hydromorphone Hcl 1 Mg/Ml Syringe IVPUSH 06/11/24 23:10 1 mg ONCE ONE Administration Protocol Hydromorphone HCl 2 mg 06/12/24 03:40 06/12/24 04:11 Hydromorphone Hcl 2 Mg Tablet PO 06/12/24 03:41 2 mg ONCE ONE Administration Sodium Chloride 1,000 mls @ 999 mls/hr 06/11/24 19:45 06/11/24 22:20 Ns IV 06/11/24 20:45 Infused .Q1H1M KATHY Infusion Iohexol 85 ml 06/11/24 20:35 06/11/24 20:35 Iohexol 350 Mg/Ml 100 Ml Infus..Btl IV 06/11/24 20:36 85 ml ONCE ONE Administration Ketorolac Tromethamine 15 mg 06/11/24 23:09 06/11/24 23:16 Ketorolac Tromethamine 15 Mg/Ml Vial IVPUSH 06/11/24 23:10 15 mg ONCE ONE Administration Metoclopramide HCl 10 mg 06/11/24 19:45 06/11/24 19:53 Metoclopramide Hcl 10 Mg/2 Ml Vial IVPUSH 10 mg ONCE PRN Administration Nausea and Vomiting Ondansetron HCl 4 mg 06/12/24 01:29 06/12/24 01:40 Ondansetron Hcl 4 Mg/2 Ml Vial IVPUSH 06/12/24 01:30 4 mg ONCE ONE Administration Medical Decision Making Medical Decision Making [facility] Narrative: 38-year-old female with a history of obesity, s/p cholecystectomy, , umbilical hernia repair by Dr. Trotter on 04/04/2024 complicated by seroma which was treated with course of antibiotics/IR placed drain, who presents with ongoing refractory abdominal pain with nausea vomiting diarrhea for over a month. No change in the patient's symptoms, while vomiting she passed out today. Patient states she has intermittently febrile at home. When she has a bowel movement, she states it is pale/green yellow in color, having 2 bowel movements a day. She has followed up with her surgeon since, she is pending a colonoscopy given her refractory symptoms. Problem: Postsurgical complication with the development of abdominal pain, morbid obesity History: Per patient I have considered the following differential diagnoses: abdominal wall abscess, intra-abdominal abscess, bowel obstruction /incarcerated hernia, appendicitis Plan: Patient is anxious and tearful, crying when I palpate her abdomen. I do not feel a mass within the abdomen to suggest an incarcerated hernia. Her exam was difficult secondary to habitus. There are no objective overlying skin changes to suggest a strangulated hernia. I also do not feel a palpable mass within the abdominal wall to suggest a fluid collection, although again my exam maybe secured secondary to her habitus. Her pain is very focal within the right lower quadrant, perhaps she has developed an appendicitis. We will be obtaining yet another CT scan of the abdomen, I feel as if I do not have a choice. Screening labs were already obtained from triage and they are unremarkable. We will be giving fluid, Zofran and Dilaudid; patient states Dilaudid is the only thing that helps her. I have independently reviewed the following tests: Labs: No leukocytosis, not anemic, no electrolyte abnormality, not , viral panel negative, the patient has been tested for C diff last month. It was negative. Urine not infected CT abdomen and pelvis:MPRESSION: 1. Enlarging right adnexal cysts. This may be further evaluated with ultrasound. 2. Mildly diffuse colonic mural thickening, may be related to degree of under distention or mild colitis. This document has been electronically signed by: Lance Ellis MD on 06/11/2024 21:40:55 Transvaginal ultrasound:MPRESSION: No evidence for ovarian torsion. Simple appearing right ovarian cysts. Consider follow-up in 6-12 weeks. Similar low-lying IUD, please see above. Lab Data 06/11/24 15:59 06/11/24 15:59 Labs: Lab Results 06/11/24 06/11/24 Range/Units 15:59 18:12 WBC 9.4 (4.8-10.8) X10*3/uL RBC 4.69 (4.20-5.50) X10*6/uL Hgb 13.9 (12.0-16.0) g/dl Hct 39.2 (37.0-47.0) % MCV 83.6 (80.0-98.0) fL MCH 29.6 (27.0-33.0) pg MCHC 35.5 H (31.0-35.0) g/dl RDW 12.9 (11.0-16.0) % Plt Count 373 (160-400) X10*3/uL MPV 10.2 (9.4-12.3) fL Immature Gran % (Auto) 0.4 (0.0-0.4) % Neut % (Auto) 76.9 H (45-73) % Lymph % (Auto) 17.3 L (20-40) % [place] % (Auto) 4.8 (2-11) % Eos % (Auto) 0.3 (0-4) % Baso % (Auto) 0.3 (0-2) % Lymph # (Auto) 1.6 (1.2-4.9) X10*3/uL [place] # (Auto) 0.5 (0.1-1.2) X10*3/uL Eos # (Auto) 0.0 (0.0-0.4) X10*3/uL Baso # (Auto) 0.0 (0.0-0.2) X10*3/uL Abs Immat Gran (auto) 0.04 H (0.00-0.03) X10*3/uL Absolute Neuts (auto) 7.2 (2.0-8.3) x10*3/uL Absolute Nucleated RBC 0.000 (0.0-0.012) X10*3/uL Nucleated RBC % (auto) 0.0 (0.0-0.2) /100WBC Sodium 137 (135-145) mmol/L Potassium 4.2 (3.3-5.1) mmol/L Chloride 105 (96-108) mmol/L Carbon Dioxide 23 (22-29) mmol/L Anion Gap 13 (12-20) BUN 9 (9-16) mg/dL Creatinine 0.77 (0.5-1.4) mg/dL Estim Creat Clear Calc 120.7 Estimated GFR > 60 Random Glucose 136 H (60-115) mg/dL Calcium 9.8 D (8.4-10.2) mg/dL Total Bilirubin 0.2 (0.0-1.0) mg/dL AST 23 (5-31) U/L ALT 46 H (0-31) U/L Alkaline Phosphatase 82 (39-117) U/L Troponin I High Sens < 2.7 (<3.5-17.0) ng/L Total Protein 7.9 (6.5-8.0) g/dL Albumin 4.3 (3.5-5.0) g/dL Lipase 10 (8-78) U/L Beta HCG, Quant < 2 mIU/mL Urine Color Yellow Urine Appearance Clear Urine pH 7.0 (5.0-9.0) Ur Specific [place] >= 1.030 H (1.005-1.025) Urine Protein Trace (Neg-Trace) mg/dL Urine Glucose (UA) Negative (Negative) mg/dL Urine Ketones Trace (Negative) mg/dL Urine Blood Negative (Negative) Urine Nitrite Negative (Negative) Ur Leukocyte Esterase Negative (Negative) Urine Test NEGATIVE (NEGATIVE) Influenza Type A (PCR) NEGATIVE (Negative) Influenza Type B (PCR) NEGATIVE (Negative) RSV RNA Qual (PCR) NEGATIVE (Negative) SARS-CoV-2 RNA (RT-PCR) NEGATIVE (Negative) S. pyogenes GrpA ADOLFO Negative (Negative) Discharge Plan Discharge Clinical Impression: Abdominal pain Patient Disposition: Home, Self-Care Instructions: Abdominal Pain (ED) Additional Instructions: All of your screening labs were normal. The CT scan of the abdomen was improved. You also had a transvaginal ultrasound, you have 2 simple ovarian cysts that would not account for the discomfort you were experiencing. It is unclear why you were experiencing discomfort, given your CT scan is improved from your recent study on 06/06. You need to keep your pending follow up with your surgeon and your scale tank operator. Use the Bentyl as needed for abdominal pain. Use the Reglan as needed for nausea. Use the Carafate as needed for upper abdominal discomfort/indigestion. Prescriptions: New dicyclomine 20 mg tablet 20 mg PO QID PRN (Reason: abdominal pain) Qty: 16 0RF metoclopramide HCl [Reglan] 10 mg tablet 10 mg PO Q6H PRN (Reason: nausea and vomiting) Qty: 12 0RF sucralfate [Carafate] 100 mg/mL suspension 10 ml PO QID PRN (Reason: indigestion) Qty: 300 0RF Rx Instructions: swish in mouth and swallow; use after food/drink No Action hydromorphone [Dilaudid] 2 mg tablet 2 mg PO Q6H PRN (Reason: pain (scale score 7-10)) Qty: 15 0RF Rx Instructions: Partial Fill upon patient request. clonazepam 1 mg tablet 1 mg PO TID PRN (Reason: Anxiety) ibuprofen 600 mg tablet 600 mg PO QID PRN (Reason: Pain) fluticasone propionate 50 mcg/actuation Russell,Suspension 1 spray INTRANASAL DAILY PRN (Reason: Allergy Symptoms) Rx Instructions: administer into each nostril Liletta 20.4 mcg/24 hr (8 yrs) 52 mg Intrauterine Device 20.4 mcg INTRAUTERINE DIRECTED Rx Instructions: Every 8 years albuterol sulfate 90 mcg/actuation HFA aerosol inhaler 2 puff INHALATION Q6H omeprazole 40 mg capsule,delayed release(DR/EC) 40 mg PO DAILY Qty: 30 0RF hydromorphone [Dilaudid] 2 mg tablet 2 mg PO Q6H PRN (Reason: pain) Qty: 5 0RF Rx Instructions: Partial Fill upon patient request. ondansetron 4 mg tablet,disintegrating 4 mg PO Q8-12H PRN (Reason: nausea and vomiting) Qty: 6 0RF dicyclomine 10 mg capsule 20 mg PO QID Qty: 90 2RF ondansetron 8 mg tablet,disintegrating 8 mg PO Q8H PRN (Reason: nausea and vomiting) Qty: 60 2RF duloxetine 60 mg capsule,delayed release(DR/EC) 60 mg PO DAILY@1999 Stand Alone Forms: Work/School Release Interventions: ED Discharge Assessment Last Done: 06/12/24 04:34 Discharge Date/Time: 06/12/24 04:37 Print Language: Burkinan
[2024-06-11 16:04] LABS: MANUAL DIFF FLAG NO
[2024-06-11 16:06] LABS: Basophils Percent Auto 0.3 % (0-2); Eosinophils Percent Auto 0.3 % (0-4); Hematocrit 39.2 % (37.0-47.0); Hemoglobin 13.9 g/dl (12.0-16.0); Imm Gran Abs Auto 0.04 X10*3/uL (0.00-0.03); Imm Gran Pct Auto 0.4 % (0.0-0.4); Lymphocytes Absolute Auto 1.6 X10*3/uL (1.2-4.9); Lymphocytes Percent Auto 17.3 % (20-40); Mean Corpuscular HGB Conc 35.5 g/dl (31.0-35.0); Mean Corpuscular Hemoglobin 29.6 pg (27.0-33.0); Mean Corpuscular Volume 83.6 fL (80.0-98.0); Mean Platelet Volume 10.2 fL (9.4-12.3); Monocytes Absolute Auto 0.5 X10*3/uL (0.1-1.2); Monocytes Percent Auto 4.8 % (2-11); Neutrophils Absolute Auto 7.2 x10*3/uL (2.0-8.3); Neutrophils Percent Auto 76.9 % (45-73); Platelet Count 373 X10*3/uL (160-400); Red Blood Count 4.69 X10*6/uL (4.20-5.50); Red Cell Distribution Width 12.9 % (11.0-16.0); White Blood Count 9.4 X10*3/uL (4.8-10.8)
[2024-06-11 16:13] LABS: IDNOW Serial# 58CA691E; Strep A Nucleic Acid Negative (Negative)
[2024-06-11 16:25] LABS: Alanine Aminotransferase 46 U/L (0-31); Albumin Level 4.3 g/dL (3.5-5.0); Anion Gap 13 (12-20); Aspartate Amino Transferase 23 U/L (5-31); Bilirubin Total 0.2 mg/dL (0.0-1.0); Blood Urea Nitrogen 9 mg/dL (9-16); Calcium 9.8 mg/dL (8.4-10.2); Carbon Dioxide 23 mmol/L (22-29); Chloride 105 mmol/L (96-108); Creatinine Clr Calc Pharmacy 120.7; Estimated Glomerular Filt Rate > 60; Glucose Random 136 mg/dL (60-115); Lipase 10 U/L (8-78); Potassium 4.2 mmol/L (3.3-5.1); Sodium 137 mmol/L (135-145); Total Protein 7.9 g/dL (6.5-8.0)
[2024-06-11 16:30] LABS: Troponin-I High Sensitivity < 2.7 ng/L (<3.5-17.0)
[2024-06-11 16:57] LABS: Alkaline Phosphatase 82 U/L (39-117); HCG Quantitative < 2 mIU/mL
[2024-06-11 17:01] LABS: Influenza A PCR NEGATIVE (Negative); Influenza B PCR NEGATIVE (Negative); Resp Syncy Virus RNA Qual PCR NEGATIVE (Negative); SARS COV2 PCR INHOUSE NEGATIVE (Negative)
[2024-06-11 18:05] VITALS: BP 116/72; PULSE 84; RESP 20; TEMP 36.7; O2SAT 94
[2024-06-11 18:29] LABS: Appearance Urine Clear; Color Urine Yellow; Glucose Urine UA Negative (Negative); Leukocyte Esterase Urine Negative (Negative); Nitrite Urine Negative (Negative); Specific Gravity - Urine >= 1.030 (1.005-1.025); UPreg QC Valid YES; Urine Blood Negative (Negative); Urine Ketones Trace mg/dL (Negative); Urine Pregnancy NEGATIVE (NEGATIVE); Urine Protein Trace mg/dL (Neg-Trace)
[2024-06-11 19:53] VITALS: RESP 16
[2024-06-11] MEDS: Metoclopramide HCl 10 MG/2 ML VIAL IVPUSH (19:53)
[2024-06-11] MEDS: HYDROmorphone HCl 1 MG/ML SYRINGE IVPUSH ×2 (19:53→23:16)
[2024-06-11] MEDS: 0.9 % Sodium Chloride 1,000 ML 999 ML IV (19:53)
[2024-06-11 19:56] VITALS: BP 132/87; PULSE 87; RESP 16; TEMP 36.6; O2SAT 94
[2024-06-11] MEDS: iohexoL 350 MG/ML 100 ML INFUS..BTL 85 ML IV (20:35)
[2024-06-11 22:12] VITALS: BP 144/87; PULSE 86; RESP 16; TEMP 36.4; O2SAT 94
[2024-06-11] MEDS: Ketorolac Tromethamine 15 MG/ML VIAL IVPUSH (23:16)
[2024-06-12] MEDS: ondansetron HCL 4 MG/2 ML VIAL IVPUSH (01:40)
[2024-06-12 01:42] VITALS: BP 148/89; PULSE 89; RESP 17; TEMP 36.4; O2SAT 98
[2024-06-12] MEDS: Dicyclomine HCl 10 MG CAPSULE 20 MG PO (02:51)
[2024-06-12 04:00] VITALS: BP 142/86; PULSE 75; RESP 15; TEMP 36.7; O2SAT 96
[2024-06-12] MEDS: HYDROmorphone HCl 2 MG TABLET PO (04:11)
[2024-06-12 04:34] VITALS: BP 142/86; PULSE 75; RESP 15; TEMP 36.7; O2SAT 96
== END 2024-06-12 04:37 | disposition home or self-care (01) ==
PROVIDERS: Physician Assistant; Emergency Provider Emergency Medicine Emergency Medical Services; PCP Nurse Practitioner
DX: R10.2 Pelvic and perineal pain (principal); R11.2 Nausea with vomiting, unspecified; R19.7 Diarrhea, unspecified; R94.31 Abnormal electrocardiogram [ECG] [EKG]; R55 Syncope and collapse; Z79.899 Other long term (current) drug therapy; Z87.891 Personal history of nicotine dependence; Z03.818 Encounter for observation for suspected exposure to other biological agents ruled out
CPT/HCPCS: 0241U; 74177; 76830; 76856; 80053; 81003; 81025; 83690; 84484; 84702; 85025; 87651; 93005; 93975; 96361; 96374; 96375; 96376; 99285; J1171; J1885; J2405; J2765; Q9967

== ENCOUNTER → 2024-06-11 15:44 | Outpatient (BNV) | payer OTHER, SELFPAY | PROVIDERS: Emergency Provider Emergency Medicine Emergency Medical Services; PCP Nurse Practitioner; Visit Provider Internal Medicine Cardiovascular Disease | DX: R94.31 Abnormal electrocardiogram [ECG] [EKG] (principal); R10.9 Unspecified abdominal pain | CPT/HCPCS: 93010 ==

== ENCOUNTER → 2024-06-11 19:45 | Outpatient (BNV) | payer OTHER, SELFPAY | PROVIDERS: Emergency Provider Emergency Medicine Emergency Medical Services; PCP Nurse Practitioner; Visit Provider Radiology Diagnostic Radiology | DX: R10.31 Right lower quadrant pain (principal) | CPT/HCPCS: 74177 ==

== ENCOUNTER → 2024-06-12 00:20 | Outpatient (BNV) | payer OTHER, SELFPAY | PROVIDERS: Emergency Provider Emergency Medicine Emergency Medical Services; PCP Nurse Practitioner; Visit Provider Radiology Diagnostic Radiology | DX: N83.201 Unspecified ovarian cyst, right side (principal) | CPT/HCPCS: 76830; 93975 ==

== ENCOUNTER 2024-06-19 11:51 | Day surgery (SDC) | payer OTHER, SELFPAY ==
--- OUTSIDE RECORDS SUMMARY | 2024-06-11 10:15 | XMS_ITS ---
Author Organization [facility] Address [address] [place] [address] Care Team Providers Care Manager Technical Services Name Role Phone Cecile Akers Primary Care Provider Unav ailable Blayne Bernardo Jr Unavailable Kentrell Trotter Unavailable Unavailable REASON FOR VISIT ACHEY,PUKING , ABD PAIN,99.8 TEMP, PT GOING TO ER Encounters Encounter Location Date Provider Diagnosis [facility] [address] [place] [address] 06/06/2024 Blayne Bernardo Jr Plan Of Treatment Next Appt Details Provider Name:Blayne lowery Jr, 06/19/2024 01:40:00 PM, [address] [place] [address] , [place], [place], [phone], Progress Notes * HODA MONZON TDOB:1985 (38 yo F)Acc No.[id number]:06/06/2024 Patient:?HODA MONZON :1985???Age:38 Y???Sex:Female Address:[place] [address] * true * Date:? Generated for Tennillei radha/Rocio/eTransmitting on:?06/11/2024 10:15 AM EDT
--- OUTSIDE RECORDS SUMMARY | 2024-06-11 10:15 | XMS_ITS | Patient Health Record ---
Author Organization [facility] Address [address] [place] [address] Care Team Providers Care Junior Technical Writer Name Role Phone Cecile Akers Primary Care Provider UnaBlayne Peng Jr Unavailable Kentrell Trotter Unavailable Unavailable Allergies Allergen (clinical [...] 06/04/2024 Encounters Encounter Location Date Provider Diagnosis [facility] [address] [place] [address] 06/04/2024 Blayne Bernardo Jr Generalized abdominal pain R10.84 [facility] [address] [place] [address] 06/07/2024 Blayne Bernardo Jr [facility] [address] [place] [address] 06/04/2024 Blayne Bernardo Jr [facility] [address] [place] [address] 06/05/2024 Blayne Bernardo Jr [facility] [address] [place] [address] 06/06/2024 Blayne Bernardo Jr Assessments Encounter Date [...] Provider Name:Blayne lowery Jr, 06/19/2024 01:40:00 PM, [address] [facility] [place], [phone], Insurance Providers Payer Name Payer Address Payer Phone Subscriber Number Group Number Insured Name Patient Relationship to Insured Coverage Start Date Coverage End Date [employer] [address] [place] [address] [phone] [id number] HODA MONZON Self - patient is the insured Medical (General) History Medical History History ICD Code Psoriasis Anxiety Surgical History Surgery Date(Month/Year) Cholecystectomy section Umbilical herniorrhaphy with mesh 03/2024 Hospitalization History Reason Date(Month/Year) multiple hospitalizations after keven nugent
--- OUTSIDE RECORDS SUMMARY | 2024-06-11 10:15 | XMS_ITS ---
Author Organization [facility] Address [address] [place] [address] Care Team Providers Care Rubber Roller Grinder Name Role Phone Cecile Akers Primary Care Provider Unav ailable Blayne Bernardo Jr Unavailable Kentrell Trotter Unavailable Unavailable REASON FOR VISIT note/ Encounters Encounter Location Date Provider Diagnosis [facility] [address] [place] [address] 06/05/2024 Blayne Bernardo Jr Plan Of Treatment Next Appt Details Provider Name:Blayne lowery Jr, 06/19/2024 01:40:00 PM, [address] [place] [address] , [place], [place], [phone], Progress Notes * HODA MONZON TDOB:1985 (38 yo F)Acc No.[id number]:06/05/2024 Patient:?HODA MONZON :1985???Age:38 Y???Sex:Female Address:[place] [address] * true * Date:? Generated for Printi ng/Fazacharyg/eTransmitting on:?06/11/2024 10:15 AM EDT
--- OUTSIDE RECORDS SUMMARY | 2024-06-11 10:15 | XMS_ITS ---
Author Organization [facility] Address [address] [place] [address] Care Team Providers Care Feller Hand Name Role Phone Cecile Akers Primary Care Provider Unav ailable Blayne Bernardo Jr Unavailable Kentrell Trotter Unavailable Unavailable REASON FOR VISIT was in the er yesterday Encounters Encounter Location Date Provider Diagnosis [facility] [address] [place] [address] 06/07/2024 Blayne Bernardo Jr Plan Of Treatment Next Appt Details Provider Name:Blayne lowery Jr, 06/19/2024 01:40:00 PM, [address] [place] [address] , [place], [place], [phone], Progress Notes * HODA MONZON TDOB:1985 (38 yo F)Acc No.[id number]:06/07/2024 Patient:?HODA MONZON :1985???Age:38 Y???Sex:Female Address:[place] [address] * * Date:?
[2024-06-15 15:48] VITALS: BMI 51.5
[2024-06-15 16:44] VITALS: BMI 51.5
[2024-06-19] MEDS: Lactated Ringers 1,000 ML 80 ML IVCONT (12:23)
--- NOTE | 2024-06-19 12:36 | P.CONAN_ITS ---
HPI - Anesthesia Eval Consult details Narrative: 38yo female patient for EGD, Colonoscopy PMF Active Problems Active Problems: All Active Problems Abdominal pain, RUQ (Acute) Vomited a lot with prep yesterday. None today Denies CHIO Marijuana use Past Medical History Medical History Abdominal fluid collection Incisional hernia Family History Family history of problems with anesthesia: No Surgical History Surgical History Hx of umbilical hernia repair (04/04/24) History of laparoscopic cholecystectomy Previous section (~04/27/19) History of Problems with Anesthesia: No Social History Social History Household Members: Spouse and Children Housing: House Are you a primary health care law specialist to a significant other at home: Yes Do you presently have visiting nurse or other home services: No Alcohol intake: former Patient Tobacco Use Status: Former Tobacco user Tobacco use type: Cigarette Substance Use Type: Marijuana Advance Directives Date on File: 05/11/24 service: No Meds Allergies Allergy/AdvReac Type Severity Reaction Status Date / Time cefaclor [From [facility]] Allergy Severe Rash Verified 06/19/24 12:28 codeine Allergy Severe Rash Verified 06/19/24 12:28 morphine AdvReac Headache Verified 06/19/24 12:28 oxycodone AdvReac Shakiness Verified 06/19/24 12:28 Active Medications: Current Medications Lactated Ringer's (Lr) 1,000 mls @ 80 mls/hr IVCONT .[id number] KATHY Last Admin: 06/19/24 12:23 Dose: 80 mls/hr Home Medications ?Medication ?Instructions ?Recorded ?Confirmed ?Last Taken ?Type duloxetine 60 mg capsule,delayed 60 mg PO DAILY@0800 02/21/24 06/15/24 06/19/24 History release clonazepam 1 mg tablet 1 mg PO TID PRN Anxiety 04/12/24 06/15/24 06/19/24 History fluticasone propionate 50 1 spray intranasal DAILY PRN 04/12/24 06/15/24 05/09/24 History mcg/actuation nasal Allergy Symptoms spray,suspension levonorgestrel 20.4 mcg/24 hr (up 20.4 mcg intrauterine DIRECTED 04/12/24 06/15/24 5 Years Ago History to 8 yrs) 52 mg intrauterine ~05/11/19 device (Liletta) albuterol sulfate 90 mcg/actuation 2 puff inhalation Q6H 05/10/24 06/15/24 05/09/24 History aerosol inhaler Exam Height,Weight and Vital Signs: Height 5 ft 3 in Weight 131.995 kg Vital Signs Temp Pulse Resp BP Pulse Ox O2 Del Method 06/19/24 12:53 98.0 F 98 18 147/76 H 97 Room Air Pertinent Lab Results Pertinent Lab Results: Lab Results 06/19/24 Range/Units 12:25 Urine Test NEGATIVE (NEGATIVE) Airway Mallampati Class: II TM Dist: >3cm Neck ROM: Full Loose/Missing/Broken Teeth: Yes (Broken tooth bottom left back. Missing some molars. Denies loose teeth) Heart: RRR Lungs: CTAB Assessment and Plan Assessment Anesthesia Assessment: Anesthesia Plan Discussed and Chart Reviewed Final Anesthetic Review Family History of Problems with Anesthesia: No History of Problems with Anesthesia: No NPO: Yes ASA Class: III Final Preanesthetic Review: No Changes in Pt Med Stat, Meds/Allgs Chart Reviewed, Consent Obtained/Reviewed and Anes Risks/Benef Reviewed Patient Risk: Intermediate Procedure Risk: Low Assessment/Block/Sedation in SS: Assess/Block/Sedation-SS Anesthetic Plan Anesthetic Plan: TIVA Disposition: Standard PACU
[2024-06-19 12:43] LABS: UPreg QC Valid YES; Urine Pregnancy NEGATIVE (NEGATIVE)
[2024-06-19 12:53] VITALS: BP 147/76; PULSE 98; RESP 18; TEMP 36.7; O2SAT 97
--- NOTE | 2024-06-19 13:42 | MHC.SHP ---
Pre-Procedural Eval Section A - 24 Hr Update-Section A only Date of Service: 06/19/24 The patient is an INPATIENT: No Changes since office visit: No Cold of Flu in the past 2 weeks, No New Medical Problems, No Changes in Medication and No Patient answered all questions The patient has been examined within 24 hours of the surgical procedure. The History & Physical has been completed within 30 days and I have reviewed it.: Yes Section B - Complete if H&P > 30 days Chief Complaint: Unspecified abdominal pain Allergies: Allergies Allergy/AdvReac Type Severity Reaction Status Date / Time cefaclor [From [facility]] Allergy Severe Rash Verified 06/19/24 12:28 codeine Allergy Severe Rash Verified 06/19/24 12:28 morphine AdvReac Headache Verified 06/19/24 12:28 oxycodone AdvReac Shakiness Verified 06/19/24 12:28 Plan I have reviewed the history and physical and performed a pertinent physical examination on my patient. No changes have occurred unless specified. Time Spent With Patient Time: Total time managing care of this patient today ____ minutes.
[2024-06-19 13:48] VITALS: BMI 50.5
[2024-06-19 14:32] VITALS: BP 117/77; PULSE 89; RESP 14; TEMP 36.3; O2SAT 97
[2024-06-19 14:47] VITALS: BP 121/76; PULSE 73; RESP 16; TEMP 36.4; O2SAT 98
--- NOTE | 2024-06-19 14:50 | OP_ITS ---
DATE OF SERVICE: 06/19/2024 SURGEON: Blayne Bernardo MD INDICATIONS: Abdominal pain, nausea, vomiting, and abnormal CT scan of the colon. PREOPERATIVE DIAGNOSIS: POSTOPERATIVE DIAGNOSIS: PROCEDURE PERFORMED: Upper endoscopy with biopsy, colonoscopy to the terminal ileum with biopsy. ESTIMATED BLOOD LOSS: COMPLICATIONS: ANESTHESIA: Monitored anesthesia care. ASSISTANTS: SPECIMENS: DESCRIPTION OF PROCEDURE: History and physical were performed. The risks and benefits of the procedure were explained to the patient. Informed consent was obtained. The patient was placed in the left lateral decubitus position. The Olympus videogastroscope was introduced into the esophagus, stomach, and duodenum. Examination was performed. The scope was removed. She was repositioned for colonoscopy. A digital rectal exam was performed and was found to be normal. The Olympus pediatric videocolonoscope was introduced into the rectum and advanced to the cecum. The cecum was identified by transillumination, palpation, and identification of ileocecal valve. Examination was performed. The scope was removed. She tolerated both procedures well, was returned to recovery area in stable condition. FINDINGS: Upper endoscopy. The esophagus was normal. There was no esophagitis. Biopsies were obtained of the EG junction. Stomach: The stomach was normal. Biopsies were obtained from the antrum. Duodenum: The bulb and 2nd portion were normal. Biopsies were obtained from the 2nd portion. Colonoscopy of the terminal ileum was normal. The visualized colonic mucosa was normal. There was no evidence of Crohn disease or ulcerative colitis. There were few diverticula scattered throughout the colon. Retroflexed examination showed some internal hemorrhoids. Biopsies were obtained from the ileum and randomly from the colon. Retroflexed examination showed small internal hemorrhoids. IMPRESSION: 1. Normal upper endoscopy. 2. Normal colonoscopy. RECOMMENDATION: Follow up the biopsy results. MD JASON Roque/JAKEL / [id number]
[2024-06-19 15:02] VITALS: BP 139/93; PULSE 75; RESP 16; O2SAT 96
[2024-06-19 15:17] VITALS: BP 122/75; PULSE 90; RESP 18; O2SAT 95
[2024-06-19 15:32] VITALS: BP 139/102; PULSE 88; RESP 18; O2SAT 96
== END 2024-06-19 15:55 | disposition home or self-care (01) ==
PROVIDERS: Anesthesiology; PCP Nurse Practitioner; Visit Provider Internal Medicine Gastroenterology
PROC: (CPT 45380; principal; 2024-06-19 13:40)
DX: R10.9 Unspecified abdominal pain (principal); R19.7 Diarrhea, unspecified; K57.30 Diverticulosis of large intestine without perforation or abscess without bleeding; K64.8 Other hemorrhoids; K29.50 Unspecified chronic gastritis without bleeding; K22.70 Barrett's esophagus without dysplasia; Z79.899 Other long term (current) drug therapy; Z88.5 Allergy status to narcotic agent; Z88.8 Allergy status to other drugs, medicaments and biological substances; Z98.890 Other specified postprocedural states; Z87.891 Personal history of nicotine dependence
CPT/HCPCS: 45380; 43239; 81025; 88305; 88313; 88342; J1596; J2003; J2405; J2704; J2765

== ENCOUNTER 2024-06-19 16:03 | Emergency (ER) | payer OTHER, SELFPAY ==
--- NOTE | ~2024-06-19 | XR_ITS ---
CLINICAL HISTORY: pain post biopsy Abdominal radiographs Comparison: CT/HI/SR - CT ABDOMEN PELVIS W IV CON - 06/11/24 20:32 EDT Findings: There is a nonobstructive bowel gas pattern. Stool quantity is not increased. No pneumoperitoneum or pneumatosis. Intrauterine device in the pelvis. Status post cholecystectomy. No acute osseous or soft tissue abnormality. Impression: No acute findings. This document has been electronically signed by: Kassandra Chacon MD on 06/19/2024 18:51:26
[2024-06-19 16:13] VITALS: BP 107/38; PULSE 63; RESP 20; TEMP 36.7; O2SAT 94; BMI 43.2
[2024-06-19 16:58] LABS: Appearance Urine Cloudy; Color Urine Yellow; Glucose Urine UA Negative (Negative); Leukocyte Esterase Urine Trace (Negative); Nitrite Urine Negative (Negative); UMIC TRIGGER UA YES; Urine Blood Small (1+) (Negative); Urine Ketones Negative (Negative); Urine Protein Negative (Neg-Trace)
[2024-06-19 17:08] LABS: Bacteria Urine Trace (None Seen); WBC Urine 0-5 /HPF (0-5)
--- NOTE | 2024-06-19 17:14 | ED_ITS ---
HPI - Abdominal Pain General Chief Complaint: Abdominal Pain Stated Complaint: abdominal pain Time Seen by Provider: 06/19/24 16:58 Source: patient Mode of arrival: ambulatory Limitations: no limitations History of Present Illness ED Provider: HPI narrative: Patient has chronic lower abdominal pain for last 3 months after umbilical hernia surgery in 05/01 been to the hospital multiple times had 5 CT scan , last CT scan was 06/11 which was negative for acute also has pelvic ultrasound which showed cyst on the ovaries patient has had today colonoscopy endoscopy for the same reason and some biopsy was taken post patient was nauseated and still having the pain hence sent to the ER for further management patient has says the pain is same as before is not going away now Related Data Home Medications ?Medication ?Instructions ?Recorded ?Confirmed duloxetine 60 mg capsule,delayed 60 mg PO DAILY@0800 02/21/24 06/15/24 release clonazepam 1 mg tablet 1 mg PO TID PRN Anxiety 04/12/24 06/15/24 fluticasone propionate 50 1 spray intranasal DAILY PRN 04/12/24 06/15/24 mcg/actuation nasal Allergy Symptoms spray,suspension levonorgestrel 20.4 mcg/24 hr (up 20.4 mcg intrauterine DIRECTED 04/12/24 06/15/24 to 8 yrs) 52 mg intrauterine device (Liletta) albuterol sulfate 90 mcg/actuation 2 puff inhalation Q6H 05/10/24 06/15/24 aerosol inhaler Previous Rx's ?Medication ?Instructions ?Recorded omeprazole 40 mg capsule,delayed 40 mg PO DAILY #30 caps 05/16/24 release ondansetron 8 mg disintegrating 8 mg PO Q8H PRN nausea and 05/29/24 tablet vomiting #60 tabs dicyclomine 20 mg tablet 20 mg PO QID PRN abdominal pain 06/12/24 #16 tabs metoclopramide HCl 10 mg tablet 10 mg PO Q6H PRN nausea and 06/12/24 (Reglan) vomiting #12 tabs sucralfate 100 mg/mL oral 10 ml PO QID PRN indigestion #300 06/12/24 suspension (Carafate) mL Allergies Allergy/AdvReac Type Severity Reaction Status Date / Time cefaclor [From [facility]] Allergy Severe Rash Verified 06/19/24 16:38 codeine Allergy Severe Rash Verified 06/19/24 16:38 morphine AdvReac Headache Verified 06/19/24 16:38 oxycodone AdvReac Shakiness Verified 06/19/24 16:38 Review of Systems Review of Systems Yes all other systems are reviewed and are negative [facility] Past Medical History Medical History Abdominal fluid collection Incisional hernia Surgical History Hx of umbilical hernia repair (04/04/24) History of laparoscopic cholecystectomy Previous section (~04/27/19) Social History Social History Household Members: Spouse and Children Housing: House Are you a primary primary care provider to a significant other at home: Yes Do you presently have visiting nurse or other home services: No Alcohol intake: former Patient Tobacco Use Status: Former Tobacco user Tobacco use type: Cigarette Substance Use Type: Marijuana Advance Directives Date on File: 05/11/24 service: No Physical Exam ED Vital Signs: Vital Signs - 24 hr 06/19/24 16:13 06/19/24 17:55 06/19/24 18:00 Temperature 98.1 F 97.9 F Pulse Rate 63 75 Respiratory Rate 20 18 16 Blood Pressure 107/38 L 132/77 Pulse Oximetry 94 93 Oxygen Delivery Method Room Air Room Air 06/19/24 19:04 06/19/24 19:43 Temperature 98.0 F 98.0 F Pulse Rate 70 70 Respiratory Rate 18 18 Blood Pressure 121/69 121/69 Pulse Oximetry 97 97 Oxygen Delivery Method Room Air Room Air BMI result Body Mass Index 43.2 Appearance: Alert. Oriented X3. No acute distress. Eyes: No pallor or icterus ENT: Pharynx normal. Oral Mucosa moist Neck: Normal inspection. Neck supple. CVS: Normal heart rate and rhythm. Pulses normal. Respiratory: No respiratory distress. Equal air entry bilateral, no wheezing/rales/rhonchi Abdomen: Soft and diffuse tenderness right lower abdomen and pelvic area without rebound tenderness Bowel sounds are present, no mass palpable, no CVA tenderness Skin: Skin warm and dry. Normal skin color. Normal skin turgor. Extremities: No lower extremity edema. No calf tenderness Neuro: Oriented X 3. No motor deficit. No sensory deficit.No cerebellar signs , cranial nerves II-XII intact Medical Decision Making Medical Decision Making [facility] Narrative: Patient has chronic abdominal pain with multiple CT scan and ultrasounds and evaluation by gastroenterology surgeon comes here for similar pain after colonoscopy responded to Dilaudid KUB x-ray was done which is negative for any free air patient is feeling much better at this time taking p.o. fluids advised to follow up with your PCP Lab Data [facility] Lab Attestation statement: I reviewed the patient's lab results. Labs: Lab Results 06/19/24 Range/Units 16:46 Urine Color Yellow Urine Appearance Cloudy Urine pH 6.0 (5.0-9.0) Ur Specific [place] 1.010 (1.005-1.025) Urine Protein Negative (Neg-Trace) mg/dL Urine Glucose (UA) Negative (Negative) mg/dL Urine Ketones Negative (Negative) mg/dL Urine Blood Small (1+) H (Negative) Urine Nitrite Negative (Negative) Ur Leukocyte Esterase Trace H (Negative) Urine RBC 3-5 H (0-2) /HPF Urine WBC 0-5 (0-5) /HPF Ur Squamous Epith Cells 11-20 (0-2) /HPF Urine Bacteria Trace (None Seen) Hyaline Casts 3-5 (0-2) /LPF Independent Interpretation I performed an independent interpretation of an: Plain X-Ray Radiology Impression Discussion of test interpretation with radiology: I have reviewed the radiologist's reading. Radiologist Impression: No free air Medications Administered Discontinued Medications Generic Name Dose Route Start Last Admin Trade Name Freq PRN Reason Stop Dose Admin Hydromorphone HCl 2 mg 06/19/24 17:33 06/19/24 17:55 Hydromorphone Hcl 2 Mg/Ml Vial IVPUSH 06/19/24 17:34 2 mg ONCE ONE Administration Protocol Prochlorperazine Edisylate 10 mg 06/19/24 17:32 06/19/24 17:55 Prochlorperazine Edisylate 10 Mg/2 Ml Vial IVPUSH 06/19/24 17:33 10 mg ONCE ONE Administration Discharge Plan Discharge Clinical Impression: Abdominal pain Patient Disposition: Home, Self-Care Instructions: Chronic Abdominal Pain (ED) Additional Instructions: Continue medications as prescribed by your supervisor [employer] Drink plenty of fluids Follow up with your PCP/supervisor [employer] Prescriptions: No Action clonazepam 1 mg tablet 1 mg PO TID PRN (Reason: Anxiety) fluticasone propionate 50 mcg/actuation [place],Suspension 1 spray INTRANASAL DAILY PRN (Reason: Allergy Symptoms) Rx Instructions: administer into each nostril Liletta 20.4 mcg/24 hr (8 yrs) 52 mg Intrauterine Device 20.4 mcg INTRAUTERINE DIRECTED Rx Instructions: Every 8 years albuterol sulfate 90 mcg/actuation HFA aerosol inhaler 2 puff INHALATION Q6H omeprazole 40 mg capsule,delayed release(DR/EC) 40 mg PO DAILY Qty: 30 0RF dicyclomine 20 mg tablet 20 mg PO QID PRN (Reason: abdominal pain) Qty: 16 0RF metoclopramide HCl [Reglan] 10 mg tablet 10 mg PO Q6H PRN (Reason: nausea and vomiting) Qty: 12 0RF sucralfate [Carafate] 100 mg/mL suspension 10 ml PO QID PRN (Reason: indigestion) Qty: 300 0RF Rx Instructions: swish in mouth and swallow; use after food/drink ondansetron 8 mg tablet,disintegrating 8 mg PO Q8H PRN (Reason: nausea and vomiting) Qty: 60 2RF duloxetine 60 mg capsule,delayed release(DR/EC) 60 mg PO DAILY@0800 Interventions: ED Discharge Assessment Last Done: 06/19/24 19:43 Discharge Date/Time: 06/19/24 19:45 Print Language: [place]
[2024-06-19 17:55] VITALS: RESP 18
[2024-06-19] MEDS: HYDROmorphone HCl 2 MG/ML VIAL IVPUSH (17:55)
[2024-06-19] MEDS: Prochlorperazine Edisylate 10 MG/2 ML VIAL IVPUSH (17:55)
[2024-06-19 18:00] VITALS: BP 132/77; PULSE 75; RESP 16; TEMP 36.6; O2SAT 93
[2024-06-19 19:04] VITALS: BP 121/69; PULSE 70; RESP 18; TEMP 36.7; O2SAT 97
--- OUTSIDE RECORDS SUMMARY | 2024-06-19 19:04 | XMS_ITS ---
Author Organization [facility] Address [address] [place] [address] Care Team Providers Care Forensic Sergeant Name Role Phone Cecile Akers Primary Care Provider Unav ailable Blayne Bernardo Jr Kentrell Trotter Unavailable Unavailable REASON FOR VISIT nausea abd pain, vomiting diarrhea Encounters Encounter Location Date Provider Diagnosis [facility] Out[place] [address] [place] [phone] 06/19/2024 Blayne Bernardo Jr Plan Of Treatment No Information Progress Notes * HODA MONZON TDOB:1985 (38 yo F)Acc No.[id number]:06/19/2024 Progress Notes Patient:?HODA MONZON Provider:?Blayne Bernardo MD :1985???Age:38 Y???Sex:Female D ate:06/19/2024 Address:[address] [place], [place] [id number] Pcp:RUCHI Pickett Subjective: * Chief Complaints: * ???1. Nausea abd pain, vomit ing diarrhea. * Medical History:? Objective: * Vitals:? Assessment: Plan: * Treatment: * * The named appointment provid er may or may not be the originator of this progress note, and it is not deemed complete until electronically signed by the appointment provider. Sign off status: Pending * Provider:?Blayne Bernardo MD Date:?0 06/19/2024 Generated for Raissa garcia/Rocio/Sindi on:?06/19/2024 07:03 PM EDT
--- OUTSIDE RECORDS SUMMARY | 2024-06-19 19:04 | XMS_ITS ---
Author Organization [facility] Address [address] [place] [phone] Care Team Providers Care Digital Forensics Investigator Name Role Phone Cecile Akers Primary Care Provider Unav ailable Blayne Bernardo Jr Kentrell Trotter Unavailable Unavailable REASON FOR VISIT was in the er yesterday Encounters Encounter Location Date Provider Diagnosis [facility] [address] [place] [phone] 06/07/2024 Blayne Bernardo Jr Plan Of Treatment No Information Progress Notes * HODA MONZON TDOB:1985 (38 yo F)Acc No.[id number]:06/07/2024 Patient:?HODA MONZON :1985???Age:38 Y???Sex:Female Address:[place] [address] * true * Date:? Generated for Printi ng/Rocio/eTransmitting on:?06/19/2024 07:03 PM EDT
--- OUTSIDE RECORDS SUMMARY | 2024-06-19 19:04 | XMS_ITS | Patient Health Record ---
Author Organization [facility] Address [address] [place] [address] Care Team Providers Care Field Marketing Team Leader Name Role Phone Cecile Akers Primary Care Provider Blayne Blackwell Jr Unavailable Kentrell Trotter Unavailable Unavailable Allergies Allergen (clinical drug ingredient) Drug/Non Drug Allergy documented on EMR Reaction Allergy Type Onset Date Status cefaclor Cefaclor Unknown Drug Allergy Active codeine Codeine Unknown Drug Allergy Active Results Component Value Reference Range Notes Ur Preg Test Reviewed date:06/19/2024 04:38:15 PM Interpretation: Performing Lab:[facility], [address] [place] [id number] Notes/Report: Urine NEGATIVE NEGATIVE This test was developed to detect early . False negative results may occur after the 5th - 7th week of when using this test method. If clinically indicated, consider a serum hCG. Reason For Referral No Information Medications Medication SIG (Take, Route, Frequency, Duration) Notes Start Date End Date Status Omeprazole 40 MG 1 capsule 1/2 to 1 h our before morning meal Orally Once a day for 30 days 06/15/2024 Active clonazePAM 0.5 MG 1 tablet Orally Once [...] 06/04/2024 Encounters Encounter Location Date Provider Diagnosis [facility] Outpatient [address] [place] [id number] 06/19/2024 Blayne Bernardo Jr [facility] [address] [place] [phone] 06/04/2024 Blayne Bernardo Jr Generalized abdominal pain R10.84 [facility] [address] [place] [phone] 06/04/2024 Blayne Bernardo Jr [facility] [address] [place] [phone] 06/05/2024 Blayne Bernardo Jr [facility] [address] [place] [phone] 06/06/2024 Blayne Bernardo Jr [facility] [address] [place] [phone] 06/07/2024 Blayne Bernardo Jr [facility] [address] [place] [phone] 06/14/2024 Blayne Bernardo Jr Assessments Encounter Date Diagnosis [...] CT ABD & PELVIS WITH CONTRAST 06/04/2024 Insurance Providers Payer Name Payer Address Payer Phone Subscriber Number Group Number Insured Name Patient Relationship to Insured Coverage Start Date Coverage End Date [employer] [address] [place] [id number] HODA MONZON Self - patient is the insured Medical (General) History Medical History History ICD Code Psoriasis Anxiety Surgical History Surgery Date(Month/Year) Cholecystectomy section Umbilical herniorrhaphy with mesh 03/2024 Hospitalization History Reason Date(Month/Year) multiple hospitalizations after keven s
--- OUTSIDE RECORDS SUMMARY | 2024-06-19 19:04 | XMS_ITS ---
Author Organization [facility] Address [address] [place] [phone] Care Team Providers Care Drum Attendant Name Role Phone Cecile Akers Primary Care Provider Unav ailable Blayne Bernardo Jr Unavailable Kentrell Trotter Unavailable Unavailable Medications Medication SIG (Take, Route, Fr equency, Duration) Notes Start Date End Date Status Omeprazole 40 MG 1 capsule 1/2 to 1 h our before morning meal Orally Once a day for 30 days 06/15/2024 Active Encounters Encounter Location Date Provider Diagnosis [facility] [address] [place] [address] 06/14/2024 Blayne Bernardo Jr Plan Of Treatment Medication Medication Name Sig Start Date Stop Date Notes Omeprazole 40 MG 1 capsule 1/2 to 1 h our before morning meal Orally Once a day for 30 days 06/15/2024 Progress Notes * HODA MONZON TDOB:1985 (38 yo F)Acc No.[id number]:06/14/2024 Patient:?HODA MONZON :1985???Age:38 Y???Sex:Female Address:[place] [address] * Refills? Start Omeprazole Capsule Delayed Release, 40 MG, Orally, 30, 1 capsule 1/2 to 1 hour before morning meal, Once a day, 30 days, Refills=5 * true * Date:? Generated for Printi ng/Rocio/Yairitting on:?06/19/2024 07:04 PM EDT
[2024-06-19 19:43] VITALS: BP 121/69; PULSE 70; RESP 18; TEMP 36.7; O2SAT 97
== END 2024-06-19 19:45 | disposition home or self-care (01) ==
PROVIDERS: Emergency Provider Internal Medicine; PCP Nurse Practitioner
DX: R10.30 Lower abdominal pain, unspecified (principal); G89.29 Other chronic pain
CPT/HCPCS: 74018; 81001; 96374; 96375; 99283; 99284; J0737; J1171

== ENCOUNTER → 2024-06-19 17:27 | Outpatient (BNV) | payer OTHER, SELFPAY | PROVIDERS: Emergency Provider Internal Medicine; PCP Nurse Practitioner; Visit Provider Radiology Diagnostic Radiology | DX: R10.2 Pelvic and perineal pain (principal) | CPT/HCPCS: 74018 ==

== ENCOUNTER 2024-06-25 15:01 | Emergency (ER) | payer OTHER, SELFPAY ==
[2024-06-25 15:17] VITALS: BP 150/90; PULSE 109; RESP 18; TEMP 36.7; O2SAT 97; BMI 50.4
--- NOTE | 2024-06-25 15:17 | ED.GENADULT ---
HPI - General Adult General Chief complaint: Abdominal Pain Stated complaint: vomiting,abd pain Time Seen by Provider: 06/25/24 17:27 Related Data Home Medications ?Medication ?Instructions ?Recorded ?Confirmed duloxetine 60 mg capsule,delayed 60 mg PO DAILY@0800 02/21/24 06/15/24 release clonazepam 1 mg tablet 1 mg PO TID PRN Anxiety 04/12/24 06/15/24 fluticasone propionate 50 1 spray intranasal DAILY PRN 04/12/24 06/15/24 mcg/actuation nasal Allergy Symptoms spray,suspension levonorgestrel 20.4 mcg/24 hr (up 20.4 mcg intrauterine DIRECTED 04/12/24 06/15/24 to 8 yrs) 52 mg intrauterine device (Liletta) albuterol sulfate 90 mcg/actuation 2 puff inhalation Q6H 05/10/24 06/15/24 aerosol inhaler Previous Rx's ?Medication ?Instructions ?Recorded omeprazole 40 mg capsule,delayed 40 mg PO DAILY #30 caps 05/16/24 release ondansetron 8 mg disintegrating 8 mg PO Q8H PRN nausea and 05/29/24 tablet vomiting #60 tabs dicyclomine 20 mg tablet 20 mg PO QID PRN abdominal pain 06/12/24 #16 tabs metoclopramide HCl 10 mg tablet 10 mg PO Q6H PRN nausea and 06/12/24 (Reglan) vomiting #12 tabs sucralfate 100 mg/mL oral 10 ml PO QID PRN indigestion #300 06/12/24 suspension (Carafate) mL Allergies Allergy/AdvReac Type Severity Reaction Status Date / Time cefaclor [From [facility]] Allergy Severe Rash Verified 06/25/24 15:18 codeine Allergy Severe Rash Verified 06/25/24 15:18 morphine AdvReac Headache Verified 06/25/24 15:18 oxycodone AdvReac Shakiness Verified 06/25/24 15:18 PMFSH Past Medical History Medical History Abdominal fluid collection Incisional hernia Surgical History Hx of umbilical hernia repair (04/04/24) History of laparoscopic cholecystectomy Previous section (~04/27/19) Social History Social History Household Members: Spouse and Children Housing: House Are you a primary hearing care practitioner to a significant other at home: Yes Do you presently have visiting nurse or other home services: No Alcohol intake: former Patient Tobacco Use Status: Former Tobacco user Tobacco use type: Cigarette Smoked in Last 30 Days: No Use of substances other than those prescribed or required for medical reasons: No Substance Use Type: Marijuana Advance Directives: No Advance Directives Information Provided: No Advance Directives Date on File: 05/11/24 Patient : No service: No Physical Exam ED Vital Signs: Vital Signs - 24 hr 06/25/24 15:17 06/25/24 17:17 06/25/24 17:54 Temperature 98.1 F 97.7 F Pulse Rate 109 H 107 H Respiratory Rate 18 16 20 Blood Pressure 150/90 H 119/85 Pulse Oximetry 97 92 Oxygen Delivery Method Room Air Room Air 06/25/24 19:49 Temperature 98.1 F Pulse Rate 85 Respiratory Rate 16 Blood Pressure 131/80 Pulse Oximetry 94 Oxygen Delivery Method Room Air BMI result Body Mass Index 50.4 Course Course Course Narrative: This is a rapid medical exam performed by Joshua Pulido NP: Additional HPI, ROS, PE not included below will be deferred to primary provider. Patient is a 38-year-old female with history of recent umbilical hernia repair with Dr. Trotter, has been having ongoing GI issues and has seen Dr. Bernardo since. Since Tuesday has had nausea, vomiting diarrhea, last episode of diarrhea yesterday, feels urge to have BM today but unable to go. Already on 8mg zofran. Fever to 101.2 on Tue or Wed. Unable to tolerate any PO. Plan: labs, UA Medications Administered Discontinued Medications Generic Name Dose Route Start Last Admin Trade Name Freq PRN Reason Stop Dose Admin Hydromorphone HCl 0.5 mg 06/25/24 17:41 06/25/24 17:54 Hydromorphone Hcl 0.5 Mg/0.5 Ml Syringe IVPUSH 06/25/24 17:42 0.5 mg ONCE ONE Administration Protocol Sodium Chloride 1,000 mls @ 999 mls/hr 06/25/24 17:45 06/25/24 20:57 Ns IV 06/25/24 18:45 Infused .Q1H1M KATHY Infusion Sodium Chloride 1,000 mls @ 999 mls/hr 06/25/24 17:45 06/25/24 20:57 Ns IV 06/25/24 18:45 Infused .Q1H1M KATHY Infusion Metoclopramide HCl 10 mg 06/25/24 17:41 06/25/24 17:51 Metoclopramide Hcl 10 Mg/2 Ml Vial IVPUSH 06/25/24 17:42 10 mg ONCE ONE Administration Medical Decision Making Lab Data 06/25/24 15:53 06/25/24 15:53 Labs: Lab Results 06/25/24 06/25/24 Range/Units 15:53 15:55 WBC 9.6 (4.8-10.8) X10*3/uL RBC 4.82 (4.20-5.50) X10*6/uL Hgb 14.2 (12.0-16.0) g/dl Hct 41.1 (37.0-47.0) % MCV 85.3 (80.0-98.0) fL MCH 29.5 (27.0-33.0) pg MCHC 34.5 (31.0-35.0) g/dl RDW 12.7 (11.0-16.0) % Plt Count 392 (160-400) X10*3/uL MPV 10.0 (9.4-12.3) fL Immature Gran % (Auto) 0.3 (0.0-0.4) % Neut % (Auto) 68.6 (45-73) % Lymph % (Auto) 22.3 (20-40) % [place] % (Auto) 7.0 (2-11) % Eos % (Auto) 1.4 (0-4) % Baso % (Auto) 0.4 (0-2) % Lymph # (Auto) 2.1 (1.2-4.9) X10*3/uL [place] # (Auto) 0.7 (0.1-1.2) X10*3/uL Eos # (Auto) 0.1 (0.0-0.4) X10*3/uL Baso # (Auto) 0.0 (0.0-0.2) X10*3/uL Abs Immat Gran (auto) 0.03 (0.00-0.03) X10*3/uL Absolute Neuts (auto) 6.6 (2.0-8.3) x10*3/uL Absolute Nucleated RBC 0.000 (0.0-0.012) X10*3/uL Nucleated RBC % (auto) 0.0 (0.0-0.2) /100WBC Sodium 139 (135-145) mmol/L Potassium 4.2 (3.3-5.1) mmol/L Chloride 105 (96-108) mmol/L Carbon Dioxide 23 (22-29) mmol/L Anion Gap 15 (12-20) BUN 7 L (9-16) mg/dL Creatinine 0.77 (0.5-1.4) mg/dL Estim Creat Clear Calc 131.1 Estimated GFR > 60 Random Glucose 125 H (60-115) mg/dL Calcium 9.7 (8.4-10.2) mg/dL Magnesium 1.9 (1.6-2.6) mg/dL Total Bilirubin 0.2 (0.0-1.0) mg/dL AST 25 (5-31) U/L ALT 48 H (0-31) U/L Alkaline Phosphatase 91 (39-117) U/L Total Protein 7.7 (6.5-8.0) g/dL Albumin 4.4 (3.5-5.0) g/dL Lipase 11 (8-78) U/L Beta HCG, Quant < 2 mIU/mL Urine Color Dark Yellow Urine Appearance Cloudy Urine pH 7.5 (5.0-9.0) Ur Specific [place] 1.025 (1.005-1.025) Urine Protein Trace (Neg-Trace) mg/dL Urine Glucose (UA) Negative (Negative) mg/dL Urine Ketones Trace (Negative) mg/dL Urine Blood Trace H (Negative) Urine Nitrite Negative (Negative) Ur Leukocyte Esterase Small (1+) H (Negative) Urine RBC >20 H (0-2) /HPF Urine WBC 11-20 H (0-5) /HPF Ur Squamous Epith Cells 6-10 (0-2) /HPF Urine Bacteria 1+ (None Seen) Hyaline Casts 0-2 (0-2) /LPF Discharge Plan Discharge Clinical Impression: Abdominal pain Patient Disposition: Home, Self-Care Instructions: Abdominal Pain (ED) Prescriptions: No Action clonazepam 1 mg tablet 1 mg PO TID PRN (Reason: Anxiety) fluticasone propionate 50 mcg/actuation [place],Suspension 1 spray INTRANASAL DAILY PRN (Reason: Allergy Symptoms) Rx Instructions: administer into each nostril Liletta 20.4 mcg/24 hr (8 yrs) 52 mg Intrauterine Device 20.4 mcg INTRAUTERINE DIRECTED Rx Instructions: Every 8 years albuterol sulfate 90 mcg/actuation HFA aerosol inhaler 2 puff INHALATION Q6H omeprazole 40 mg capsule,delayed release(DR/EC) 40 mg PO DAILY Qty: 30 0RF dicyclomine 20 mg tablet 20 mg PO QID PRN (Reason: abdominal pain) Qty: 16 0RF metoclopramide HCl [Reglan] 10 mg tablet 10 mg PO Q6H PRN (Reason: nausea and vomiting) Qty: 12 0RF sucralfate [Carafate] 100 mg/mL suspension 10 ml PO QID PRN (Reason: indigestion) Qty: 300 0RF Rx Instructions: swish in mouth and swallow; use after food/drink ondansetron 8 mg tablet,disintegrating 8 mg PO Q8H PRN (Reason: nausea and vomiting) Qty: 60 2RF duloxetine 60 mg capsule,delayed release(DR/EC) 60 mg PO DAILY@0800 Referrals: Blayne Bernardo MD [Physician] - Print Language: Sami
[2024-06-25 16:04] LABS: MANUAL DIFF FLAG NO
[2024-06-25 16:06] LABS: Basophils Percent Auto 0.4 % (0-2); Eosinophils Absolute Auto 0.1 X10*3/uL (0.0-0.4); Eosinophils Percent Auto 1.4 % (0-4); Hematocrit 41.1 % (37.0-47.0); Hemoglobin 14.2 g/dl (12.0-16.0); Imm Gran Abs Auto 0.03 X10*3/uL (0.00-0.03); Imm Gran Pct Auto 0.3 % (0.0-0.4); Lymphocytes Absolute Auto 2.1 X10*3/uL (1.2-4.9); Lymphocytes Percent Auto 22.3 % (20-40); Mean Corpuscular HGB Conc 34.5 g/dl (31.0-35.0); Mean Corpuscular Hemoglobin 29.5 pg (27.0-33.0); Mean Corpuscular Volume 85.3 fL (80.0-98.0); Monocytes Absolute Auto 0.7 X10*3/uL (0.1-1.2); Neutrophils Absolute Auto 6.6 x10*3/uL (2.0-8.3); Neutrophils Percent Auto 68.6 % (45-73); Platelet Count 392 X10*3/uL (160-400); Red Blood Count 4.82 X10*6/uL (4.20-5.50); Red Cell Distribution Width 12.7 % (11.0-16.0); White Blood Count 9.6 X10*3/uL (4.8-10.8)
[2024-06-25 16:07] LABS: Appearance Urine Cloudy; Color Urine Dark Yellow; Glucose Urine UA Negative (Negative); Leukocyte Esterase Urine Small (1+) (Negative); Nitrite Urine Negative (Negative); PH 7.5 (5.0-9.0); Specific Gravity - Urine 1.025 (1.005-1.025); UMIC TRIGGER UACC YES; Urine Blood Trace (Negative); Urine Ketones Trace mg/dL (Negative); Urine Protein Trace mg/dL (Neg-Trace)
[2024-06-25 16:34] LABS: Alanine Aminotransferase 48 U/L (0-31); Albumin Level 4.4 g/dL (3.5-5.0); Alkaline Phosphatase 91 U/L (39-117); Anion Gap 15 (12-20); Aspartate Amino Transferase 25 U/L (5-31); Bilirubin Total 0.2 mg/dL (0.0-1.0); Blood Urea Nitrogen 7 mg/dL (9-16); Calcium 9.7 mg/dL (8.4-10.2); Carbon Dioxide 23 mmol/L (22-29); Chloride 105 mmol/L (96-108); Creatinine Clr Calc Pharmacy 131.1; Estimated Glomerular Filt Rate > 60; Glucose Random 125 mg/dL (60-115); Lipase 11 U/L (8-78); Magnesium 1.9 mg/dL (1.6-2.6); Potassium 4.2 mmol/L (3.3-5.1); Sodium 139 mmol/L (135-145); Total Protein 7.7 g/dL (6.5-8.0)
[2024-06-25 16:36] LABS: HCG Quantitative < 2 mIU/mL
[2024-06-25 16:59] LABS: Bacteria Urine 1+ (None Seen); Hyaline Casts Urine 0-2 /LPF (0-2); RBC Urine >20 /HPF (0-2); UACC Culture Trigger YES
[2024-06-25 17:17] VITALS: BP 119/85; PULSE 107; RESP 16; TEMP 36.5; O2SAT 92
--- NOTE | 2024-06-25 17:45 | ED.ABDPAIN ---
HPI - Abdominal Pain General Chief Complaint: Abdominal Pain Stated Complaint: vomiting,abd pain Time Seen by Provider: 06/25/24 17:27 History of Present Illness HPI narrative: Patient has chronic lower abdominal pain for last 3 months after umbilical hernia surgery in 05/01 been to the hospital multiple times had 5 CT scan , last CT scan was 06/11 which was negative for acute also has pelvic ultrasound which showed cyst on the ovaries patient has had today colonoscopy endoscopy for the same reason and some biopsy was taken post patient was nauseated and still having the pain hence sent to the ER for further management patient has says the pain is same as before is not going away. Patient's problem started after umbilical surgery. Had a large seroma which required drainage. Had upper endoscopy and colonoscopy done. There is diverticulosis no diverticulitis continued to have nausea vomiting abdominal pain not feeling well. Very similar to previous bouts. Patient is from home. Multiple CT scan done in the past. Related Data Home Medications ?Medication ?Instructions ?Recorded ?Confirmed duloxetine 60 mg capsule,delayed 60 mg PO DAILY@0800 02/21/24 06/15/24 release clonazepam 1 mg tablet 1 mg PO TID PRN Anxiety 04/12/24 06/15/24 fluticasone propionate 50 1 spray intranasal DAILY PRN 04/12/24 06/15/24 mcg/actuation nasal Allergy Symptoms spray,suspension levonorgestrel 20.4 mcg/24 hr (up 20.4 mcg intrauterine DIRECTED 04/12/24 06/15/24 to 8 yrs) 52 mg intrauterine device (Liletta) albuterol sulfate 90 mcg/actuation 2 puff inhalation Q6H 05/10/24 06/15/24 aerosol inhaler Previous Rx's ?Medication ?Instructions ?Recorded omeprazole 40 mg capsule,delayed 40 mg PO DAILY #30 caps 05/16/24 release ondansetron 8 mg disintegrating 8 mg PO Q8H PRN nausea and 05/29/24 tablet vomiting #60 tabs dicyclomine 20 mg tablet 20 mg PO QID PRN abdominal pain 06/12/24 #16 tabs metoclopramide HCl 10 mg tablet 10 mg PO Q6H PRN nausea and 06/12/24 (Reglan) vomiting #12 tabs sucralfate 100 mg/mL oral 10 ml PO QID PRN indigestion #300 06/12/24 suspension (Carafate) mL Allergies Allergy/AdvReac Type Severity Reaction Status Date / Time cefaclor [From On License Of [facility]] Allergy Severe Rash Verified 06/25/24 15:18 codeine Allergy Severe Rash Verified 06/25/24 15:18 morphine AdvReac Headache Verified 06/25/24 15:18 oxycodone AdvReac Shakiness Verified 06/25/24 15:18 Review of Systems Review of Systems Positive nausea vomiting Yes all other systems are reviewed and are negative PMFSH Past Medical History Attestation statement: The following information was validated with the patient. Medical History Abdominal fluid collection Incisional hernia Surgical History Hx of umbilical hernia repair (04/04/24) History of laparoscopic cholecystectomy Previous section (~04/27/19) Social History Social History Household Members: Spouse and Children Housing: House Are you a primary memory care program director to a significant other at home: Yes Do you presently have visiting nurse or other home services: No Alcohol intake: former Patient Tobacco Use Status: Former Tobacco user Tobacco use type: Cigarette Smoked in Last 30 Days: No Use of substances other than those prescribed or required for medical reasons: No Substance Use Type: Marijuana Advance Directives: No Advance Directives Information Provided: No Advance Directives Date on File: 05/11/24 Patient : No service: No Physical Exam ED Vital Signs: Vital Signs - 24 hr 06/25/24 15:17 06/25/24 17:17 06/25/24 17:54 Temperature 98.1 F 97.7 F Pulse Rate 109 H 107 H Respiratory Rate 18 16 20 Blood Pressure 150/90 H 119/85 Pulse Oximetry 97 92 Oxygen Delivery Method Room Air Room Air 06/25/24 19:49 Temperature 98.1 F Pulse Rate 85 Respiratory Rate 16 Blood Pressure 131/80 Pulse Oximetry 94 Oxygen Delivery Method Room Air BMI result Body Mass Index 50.4 Appearance: Alert. Oriented X3. No acute distress. Eyes: Pupils equal, round and reactive to light. ENT: Pharynx normal. Neck: Normal inspection. Neck supple. No lymph nodes noted. No crepitus CVS: Normal heart rate and rhythm. Pulses normal. Normal S1 and S2 Respiratory: No respiratory distress. Breath sounds normal. No Wheezing. No rales Abdomen: Soft and nontender. No rigidity. No distention. good BS x4 Skin: Skin warm and dry. Normal skin color. Normal skin turgor. Extremities: No lower extremity edema. Neurovascular intact to all extremities. No Lacerations. No Rash Neuro: Oriented X 3. No motor deficit. No sensory deficit. Moving all extermities. No slurred speech Medical Decision Making Medical Decision Making [facility] Narrative: Patient well-appearing no acute distress. Already had multiple CAT scan done in the past for the same. Electrolytes were unremarkable. A long discussion with patient discussed the case with GI felt comfortable discharge close follow-up on an outpatient. Patient already had multiple CAT scan done this year felt at this time given patient's labs are normal no additional CT scan done. Differential Diagnosis Differential Diagnoses: The differential diagnosis associated with the presentation includes Irritable bowel syndrome, dehydration, UTI, gastroenteritis Admission/Observation Consideration of admission/observation: Escalation of care including admission/observation considered Consult Healthcare Provider Management of the patient was discussed with: Co[place] (Dr. Bernardo from GI) Lab Data [facility] Lab Attestation statement: I reviewed the patient's lab results. 06/25/24 15:53 06/25/24 15:53 Labs: Lab Results 06/25/24 06/25/24 Range/Units 15:53 15:55 WBC 9.6 (4.8-10.8) X10*3/uL RBC 4.82 (4.20-5.50) X10*6/uL Hgb 14.2 (12.0-16.0) g/dl Hct 41.1 (37.0-47.0) % MCV 85.3 (80.0-98.0) fL MCH 29.5 (27.0-33.0) pg MCHC 34.5 (31.0-35.0) g/dl RDW 12.7 (11.0-16.0) % Plt Count 392 (160-400) X10*3/uL MPV 10.0 (9.4-12.3) fL Immature Gran % (Auto) 0.3 (0.0-0.4) % Neut % (Auto) 68.6 (45-73) % Lymph % (Auto) 22.3 (20-40) % [place] % (Auto) 7.0 (2-11) % Eos % (Auto) 1.4 (0-4) % Baso % (Auto) 0.4 (0-2) % Lymph # (Auto) 2.1 (1.2-4.9) X10*3/uL [place] # (Auto) 0.7 (0.1-1.2) X10*3/uL Eos # (Auto) 0.1 (0.0-0.4) X10*3/uL Baso # (Auto) 0.0 (0.0-0.2) X10*3/uL Abs Immat Gran (auto) 0.03 (0.00-0.03) X10*3/uL Absolute Neuts (auto) 6.6 (2.0-8.3) x10*3/uL Absolute Nucleated RBC 0.000 (0.0-0.012) X10*3/uL Nucleated RBC % (auto) 0.0 (0.0-0.2) /100WBC Sodium 139 (135-145) mmol/L Potassium 4.2 (3.3-5.1) mmol/L Chloride 105 (96-108) mmol/L Carbon Dioxide 23 (22-29) mmol/L Anion Gap 15 (12-20) BUN 7 L (9-16) mg/dL Creatinine 0.77 (0.5-1.4) mg/dL Estim Creat Clear Calc 131.1 Estimated GFR > 60 Random Glucose 125 H (60-115) mg/dL Calcium 9.7 (8.4-10.2) mg/dL Magnesium 1.9 (1.6-2.6) mg/dL Total Bilirubin 0.2 (0.0-1.0) mg/dL AST 25 (5-31) U/L ALT 48 H (0-31) U/L Alkaline Phosphatase 91 (39-117) U/L Total Protein 7.7 (6.5-8.0) g/dL Albumin 4.4 (3.5-5.0) g/dL Lipase 11 (8-78) U/L Beta HCG, Quant < 2 mIU/mL Urine Color Dark Yellow Urine Appearance Cloudy Urine pH 7.5 (5.0-9.0) Ur Specific [place] 1.025 (1.005-1.025) Urine Protein Trace (Neg-Trace) mg/dL Urine Glucose (UA) Negative (Negative) mg/dL Urine Ketones Trace (Negative) mg/dL Urine Blood Trace H (Negative) Urine Nitrite Negative (Negative) Ur Leukocyte Esterase Small (1+) H (Negative) Urine RBC >20 H (0-2) /HPF Urine WBC 11-20 H (0-5) /HPF Ur Squamous Epith Cells 6-10 (0-2) /HPF Urine Bacteria 1+ (None Seen) Hyaline Casts 0-2 (0-2) /LPF External Record Review External record reviewed: Inpatient record Chronic Conditions History of hernia surgery Social Determinants Patient?s care significantly limited by Social Determinants of Health including: Problems related to primary support group Medications Administered Discontinued Medications Generic Name Dose Route Start Last Admin Trade Name Freq PRN Reason Stop Dose Admin Hydromorphone HCl 0.5 mg 06/25/24 17:41 06/25/24 17:54 Hydromorphone Hcl 0.5 Mg/0.5 Ml Syringe IVPUSH 06/25/24 17:42 0.5 mg ONCE ONE Administration Protocol Sodium Chloride 1,000 mls @ 999 mls/hr 06/25/24 17:45 06/25/24 17:57 Ns IV 06/25/24 18:45 999 mls/hr .Q1H1M KATHY Administration Sodium Chloride 1,000 mls @ 999 mls/hr 06/25/24 17:45 06/25/24 17:58 Ns IV 06/25/24 18:45 999 mls/hr .Q1H1M KATHY Administration Metoclopramide HCl 10 mg 06/25/24 17:41 06/25/24 17:51 Metoclopramide Hcl 10 Mg/2 Ml Vial IVPUSH 06/25/24 17:42 10 mg ONCE ONE Administration Discharge Plan Discharge Clinical Impression: Abdominal pain Patient Disposition: Home, Self-Care Instructions: Abdominal Pain (ED) Prescriptions: No Action clonazepam 1 mg tablet 1 mg PO TID PRN (Reason: Anxiety) fluticasone propionate 50 mcg/actuation [place],Suspension 1 spray INTRANASAL DAILY PRN (Reason: Allergy Symptoms) Rx Instructions: administer into each nostril Liletta 20.4 mcg/24 hr (8 yrs) 52 mg Intrauterine Device 20.4 mcg INTRAUTERINE DIRECTED Rx Instructions: Every 8 years albuterol sulfate 90 mcg/actuation HFA aerosol inhaler 2 puff INHALATION Q6H omeprazole 40 mg capsule,delayed release(DR/EC) 40 mg PO DAILY Qty: 30 0RF dicyclomine 20 mg tablet 20 mg PO QID PRN (Reason: abdominal pain) Qty: 16 0RF metoclopramide HCl [Reglan] 10 mg tablet 10 mg PO Q6H PRN (Reason: nausea and vomiting) Qty: 12 0RF sucralfate [Carafate] 100 mg/mL suspension 10 ml PO QID PRN (Reason: indigestion) Qty: 300 0RF Rx Instructions: swish in mouth and swallow; use after food/drink ondansetron 8 mg tablet,disintegrating 8 mg PO Q8H PRN (Reason: nausea and vomiting) Qty: 60 2RF duloxetine 60 mg capsule,delayed release(DR/EC) 60 mg PO DAILY@0800 Referrals: Blayne Bernardo MD [Physician] - Print Language: Kazakh
[2024-06-25] MEDS: Metoclopramide HCl 10 MG/2 ML VIAL IVPUSH (17:51)
[2024-06-25 17:54] VITALS: RESP 20
[2024-06-25] MEDS: HYDROmorphone HCl 0.5 MG/0.5 ML SYRINGE IVPUSH (17:54)
[2024-06-25] MEDS: 0.9 % Sodium Chloride 1,000 ML 999 ML IV ×2 (17:57→17:58)
[2024-06-25 19:49] VITALS: BP 131/80; PULSE 85; RESP 16; TEMP 36.7; O2SAT 94
[2024-06-25 21:06] VITALS: BP 131/80; PULSE 85; RESP 16; TEMP 36.7; O2SAT 94
== END 2024-06-25 21:07 | disposition home or self-care (01) ==
PROVIDERS: Registered Nurse Emergency; Emergency Provider Emergency Medicine Emergency Medical Services; PCP Nurse Practitioner
DX: R10.2 Pelvic and perineal pain (principal); R11.2 Nausea with vomiting, unspecified; Z87.891 Personal history of nicotine dependence; Z79.899 Other long term (current) drug therapy
CPT/HCPCS: 36415; 80053; 81001; 83690; 83735; 84702; 85025; 87086; 87147; 96361; 96374; 96375; 99284; J1171; J2765

== ENCOUNTER 2024-07-17 09:58 | Outpatient (AMB) | payer OTHER, SELFPAY ==
--- NOTE | 2024-07-17 10:05 | A.OFFVIS_ITS ---
Vital Signs 07/17/24 10:08 Height 5 ft 3 in Weight 288 lb 12.889 oz BMI 51.2 Intake Visit Reasons: pain at umbilical site and fluid Intake Note: Patient is seen in office for pain at umbilical site. Pt c/o: increase pain under the belly button, has episodes of diarrhea and vomit, burning sensation, wonder if its due to the fluid that was seen on imaging Bowl Turner Required: No Accompanied by: Spouse Allergies cefaclor [From Ceclor] Allergy (Severe, Verified 07/17/24 10:07) Rash codeine Allergy (Severe, Verified 07/17/24 10:07) Rash morphine Adverse Reaction (Verified 07/17/24 10:07) Headache oxycodone Adverse Reaction (Verified 07/17/24 10:07) Shakiness Medication List - Last Reconciled 07/17/24 by Kentrell Trotter MD albuterol sulfate 90 mcg/actuation 2 puffs inhalation Q6H clonazepam 1 mg PO TID PRN dicyclomine 20 mg PO QID PRN duloxetine 60 mg PO DAILY@0800 fluticasone propionate 50 mcg/actuation 1 spray intranasal DAILY PRN levonorgestrel (Liletta) 20.4 mcg intrauterine DIRECTED metoclopramide HCl (Reglan) 10 mg PO Q6H PRN omeprazole 40 mg PO DAILY ondansetron 8 mg PO Q8H PRN sucralfate (Carafate) 10 mL PO QID PRN HPI Comments Details: 38-year-old female patient returning following repair of an umbilical hernia with mesh. She continues to have episodes of nausea, vomiting, diarrhea which comes in waves. She underwent evaluation with colonoscopy an upper endoscopy by Dr. Bernardo without any significant findings. She also complains of pain near the incision at the umbilicus especially with the vomiting. She is concerned about fluid buildup but denies any bleeding or discharge from the incision. [facility] Medical History Abdominal fluid collection Incisional hernia Surgical History Hx of umbilical hernia repair (04/04/24) History of laparoscopic cholecystectomy Previous section (~04/27/19) Social History Household Members: Spouse and Children Housing: House Are you a primary memory care director to a significant other at home: Yes Do you presently have visiting nurse or other home services: No Alcohol intake: former Patient Tobacco Use Status: Former Tobacco user Tobacco use type: Cigarette Substance Use Type: Marijuana Advance Directives Date on File: 05/11/24 service: No Review of Systems Const All systems reviewed & are unremarkable except as noted in HPI and below Physical Exam Vital Signs: BMI result Body Mass Index 51.2 Const General: anxious Nutritional Appearance: obese Orientation/consciousness: patient oriented x3 Limitations: no limitations Resp Effort & Inspection: normal respiratory effort GI Other: Well-healed periumbilical incision without redness or discharge. No palpable hernia noted with Valsalva maneuvers. No palpable mass, or fluid collection. Tenderness noted with deep palpation. Inspection: Yes Abdominal panniculus present Palpation (GI): Soft to palpation, Tenderness to palpation present (GI) periumbilically, no guarding and not rigid Percussion: Yes normal to percussion Neuro General: patient oriented x3 Assessment & Plan Assessment & Plan (1) Abdominal pain, RUQ: Code(s): R10.11 - Right upper quadrant pain Category: Medical (2) Incisional hernia: Comment: supraumbilical s/p laparoscopic cholecystectomy Code(s): K43.2 - Incisional hernia without obstruction or gangrene Category: Medical Qualifiers: Obstruction and gangrene presence: without obstruction or gangrene Qualified Code(s): K43.2 - Incisional hernia without obstruction or gangrene (3) Nausea & vomiting: Code(s): R11.2 - Nausea with vomiting, unspecified Category: Medical Qualifiers: Vomiting type: unspecified Qualified Code(s): R11.2 - Nausea with vomiting, unspecified Plan 38-year-old female patient status post repair of an incisional/umbilical hernia with mesh returning with complaints of nausea, vomiting, and diarrhea of unknown etiology. Examination today reveals no evidence of recurrent hernia or hernia infection. There is some tenderness which may be related to the retching. Previous workup has been negative. We discussed possible upper GI with small- bowel follow-through which she is agreeable to. She will return following the study to review the results. Orders: Orders [place] upper GI small bowel Today K43.2 - Incisional hernia without obstruction or gangrene, R10.11 - Right upper quadrant pain, R11.2 - Nausea with vomiting, unspecified Coding Level of Care Code Est Pt Level 3 (40204) Diagnoses Abdominal pain, RUQ R10.11 Incisional hernia, without obstruction or gangrene K43.2 Obstruction and gangrene presence: without obstruction or gangrene Nausea and vomiting, unspecified vomiting type R11.2 Vomiting type: unspecified
[2024-07-17 10:08] VITALS: BMI 51.2
--- OUTSIDE RECORDS SUMMARY | 2024-07-17 10:48 | XMS_ITS ---
Author Organization [facility] Address [address] [place] [id number] Care Team Providers Care Electromechanical Equipment Tester Name Role Phone Cecile Akers Primary Care Provider Unav ailable Az Hamilton, Blayne Shore Kentrell Trotter Unavailable Unavailable REASON FOR VISIT path/pt would like script for bentyl Medications Medication SIG (Take, Route, Fr equency, Duration) Notes Start Date End Date Status Dicyclomine HCl 20 MG 1 tablet Orally Th ree times a day for 30 days 06/22/2024 Active Encounters Encounter Location Date Provider Diagnosis [facility] [address] [place] [address] [address] [place] [address] 06/22/2024 Blayne Bernardo Jr Plan Of Treatment Medication Medication Name Sig Start Date Stop Date Notes Dicyclomine HCl 20 MG 1 tablet Orally Th ree times a day for 30 days 06/22/2024 Next Appt Details Provider Name:Blayne lowery Jr, 12/10/2024 10:20:00 AM, [address] [place] [address], [address], [place], [address], Progress Notes * HODA MONZON TDOB:1985 (38 yo F)Acc No.[id number]:06/22/2024 Patient:?HODA MONZON :1985???Age:38 Y???Sex:Female Address:[place] [address] * Refills? Start Dicyclomine HCl Tablet, 20 MG, Orally, 90, 1 tablet, Three times a day, 30 days, Refills=3 * true * Date:? Generated for Raissa garcia/Rocio/Sindi on:?07/17/2024 10:48 AM EDT
--- OUTSIDE RECORDS SUMMARY | 2024-07-17 10:48 | XMS_ITS ---
Author Organization [facility] Address [address] [place] [address] Care Team Providers Care Oil Pipeline Dispatcher Name Role Phone Cecile Akers Primary Care Provider Unav ailable Blayne Bernardo Jr [phone] Kentrell Trotter Unavailable Unavailable REASON FOR VISIT in hospital over weekend Encounters Encounter Location Date Provider Diagnosis [facility] [address] [place] [address] 06/26/2024 Blayne Bernardo Jr Plan Of Treatment Next Appt Details Provider Name:Blayne lowery Jr, 12/10/2024 10:20:00 AM, [address], [address], [place], [address], Progress Notes * HODA MONZON TDOB:1985 (38 yo F)Acc No.[id number]:06/26/2024 Patient:?HODA MONZON :1985???Age:38 Y???Sex:Female Address:[place] [address] * true * Date:? Generated for Raissa garcia/Rocio/eTransmitting on:?07/17/2024 10:48 AM EDT
--- OUTSIDE RECORDS SUMMARY | 2024-07-17 10:48 | XMS_ITS ---
Author Organization [facility] Address [address] [place] [address] Care Team Providers Care Clamper Name Role Phone Cecile Akers Primary Care Provider Unav ailBlayne Gonzalez Jr Unavailable Kentrell Trotter Unavailable Unavailable REASON FOR VISIT nausea abd pain, vomiting diarrhea Encounters Encounter Location Date Provider Diagnosis [facility] Outpatient [address] [place] [phone] 06/19/2024 Blayne Bernardo Jr Abnormal abdominal CT scan R93.5 ; Abdominal pain R10.9 and Nausea with vomiting, unspecified R11.2 Assessments Encounter Date Diagnosis (ICD Code) Assessment Notes Treatment Notes Treatment Clinical Notes Section Notes 06/19/[address] scan (ICD-10 - R93.5) 06/19/2024 Abdominal pain (ICD-10 - R10.9) 06/19/2024 Nausea with vomiting, unspecified (ICD-10 - R11.2) Plan Of Treatment Next Appt Details Provider Name:Blayne lowery Jr, 12/10/2024 10:20:00 AM, [address], [address], [place], [address], Progress Notes * HODA MONZON TDOB:1985 (38 yo F)Acc No.[id number]:06/19/2024 Progress Notes Patient:?HODA MONZON Provider:?Blayne Bernardo MD :1985???Age:38 Y???Sex:Female D ate:06/19/2024 Address:[address] [id number] Pcp:RUCHI Pickett Subjective: * Chief Complaints: * ???1. Nausea abd pain, vomit ing diarrhea. * Medical History:? Objective: * Vitals:? Assessment: * Assessment: 1.?Abnormal abdominal CT sca n - R93.5 (Primary)???2.?Abdominal pain - R10.9???3.?Nausea with vomiting, unspecified - R11.2??? Plan: * Treatment: * Procedure Codes:?22333 COLON OSCOPY AND BIOPSY, 99034 UPPER GI ENDOSCOPY, BIOPSY * * The named appointment provid er may or may not be the originator of this progress note, and it is not deemed complete until electronically signed by the appointment provider. Sign off status: Pending * Provider:?Blayne Bernardo MD Date:?0 06/19/2024 Generated for Raissa garcia/Rocio/eTransmitting on:?07/17/2024 10:48 AM EDT
--- OUTSIDE RECORDS SUMMARY | 2024-07-17 10:48 | XMS_ITS | Patient Health Record ---
Author Organization [facility] Address [address] [place] [address] Care Team Providers Care Flight/Transport Nurse Name Role Phone Cecile Akers Primary Care Provider Blayne Blackwell Jr Unavailable [phone] Kentrell Trotter Unavailable Unavailable Allergies Allergen (clinical drug ingredient) Drug/Non Drug Allergy documented on EMR Reaction Allergy Type Onset Date Status cefaclor Cefaclor Unknown Drug Allergy Active codeine Codeine Unknown Drug Allergy Active Results Component Value Reference Range Notes Ur Preg Test Reviewed date:06/19/2024 04:38:15 PM Interpretation: Performing Lab:[address] [address] Notes/Report: Urine NEGATIVE NEGATIVE This test was developed to detect early . False negative results may occur after the 5th - 7th week of when using this test method. If clinically indicated, consider a serum hCG. Pathology Reviewed date:06/25/2024 10:36:21 AM Interpretation: Performing Lab:[address] [address] Notes/Report: ----- Name: Radha Monzon Age/Sex: 38/F : 1985 [facility]#: [id number] Unit#: [id number] Attend Dr: Blayne Bernardo MD Re06/19/24 Status : [facility] Location: [facility] Disch: ----- SPEC : [id number] RECD : 06/19/24-143 STATUS: MIKE VIEIRA NUM: [id number] ROX: 06/19/24-[address]: Blayne Bernardo MD ENTERED: 06/19/24-14 42 SP TYPE: Surgical OTHR DR: Cecile Sheldon [facility] SPECIALIST ORDERED: HE Stain/ , Gross Micro L4/6, IHC, Special st. 2/2, H. pylori, AB/PAS/2 Diagnosis A. Duodenum, biopsy: Duodenal mucosa within normal limits. B. Stomach, antrum, biopsy: Antral-type mucosa with mild chronic inactive inflammation; no Helicobacter orga nisms seen. C. 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 - No dysplasia seen. - Active esophagitis (maximum eosinophil count 1 per high powered field). D. Terminal ileum, biopsy: Terminal ileal mucosa within normal limits. E. Colon, right, bio psy: Colonic mucosa within normal limits. F. Colon, sigmoid, biopsy: Colonic mucosa within normal limits. Clinical History Pre-Op Dx: Unspecifi ed abdominal pain Post-Op Dx: Normal E GD, normal colon Microscopic Description A-F. Microscopic sec tions examined. No metaplastic changes are seen, supported by AB/PAS stains (A and B); no Helicobacter organisms are seen, supported by H. pylori immunostain (B). Material Received A. Duodenum B. Antral bx's C. EG junction D. Terminal ileum E. Right colon bx's F. Sigmoid bx's Gross Description Received in six parts Part A: Received in formalin labeled ?duodenum are 3 reyna-pink irregular tissue fragments each measuring 0.2 c m, submitted in toto in a cassette labeled A. CONTINUED ON NEXT PAGE ----- Name: Radha Monzon Age/Sex: 38/F : 1985 Unit#: [id number] Attend Dr: Blayne Bernardo MD Re06/19/24 [facility] : [facility] Location: [facility] Disch: ----- SPEC : [id number] RECD : 06/19/244738 STATUS: MIKE VIEIRA NUM: [id number] ROX: 06/19/24-1407 [facility] DR: Blayne Bernardo MD ENTERED: 06/19/24-14 42 SP TYPE: Surgical OTHR DR: Cecile Sheldon NP ORDERED: HE Stain/ , Gross Micro L4/6, IHC, Special st. 2/2, H. pylori, AB/PAS/2 Gross Description (Continued) Part B: Received in formalin labeled ?antral bx's? are 2 reyna-pink rectangular tissue fragments measuring 0.35 and 0.4 cm, submitted in toto in a cassette labeled B. Part C: Received in formalin labeled ?EG junction? are 2 reyna-pink and mcduffie-white irregular and rectangular tiss ue fragments measuring 0.25 and 0.45 cm, submitted in toto in a cassette labeled C. Part D: Received in formalin labeled ?terminal ileum? are 2 reyna-pink rectangular tissue fragments measuring 0.4 and 0.5 cm, submitted in toto in a cassette labeled D. Part E: Received in formalin labeled ?right colon bx's? are 2 reyna-pink irregular tissue fragments each measu ring 0.25 cm, submitted in toto in a cassette labeled E. Part F: Received in formalin labeled ?sigmoid bx's? are 2 reyna-pink irregular tissue fragments each measu ring 0.25 cm, submitted in toto in a cassette labeled F. CEDS Special studies orde red and performed: Immunostain for H. pylori on B; AB/PAS stains on A and B Copies To: Blayne Bernardo MD [facility] [address] [place] [address] [address] [place] [address] Cecile Sheldon NP [address] [place] [id number] ----- Signed (signature on file) Nick Burrows MD 06/21/24 1210 ----- END OF REPORT Reason For Referral No Information Medications Medication [...] a day for 30 day(s) 06/04/2024 Active Dicyclomine HCl 20 MG 1 tablet Orally Th ree times a day for 30 days 06/22/2024 Active Bentyl 10 MG/ML 1 mL Intramuscular [...] 06/04/2024 Encounters Encounter Location Date Provider Diagnosis [facility] [address] [place], [place] [id number] 06/19/2024 Blayne Bernardo Jr Abnormal abdominal CT scan R93.5 ; Abdominal pain R10.9 and Nausea with vomiting, unspecified R11.2 [facility] [address] [place] [phone] 06/04/2024 Blayne Bernardo Jr Generalized abdominal pain R10.84 [facility] [address] [place] [phone] 06/04/[address] [facility] [address] [place], [place] [address] 06/05/[address] [facility] [address] [place], [place] [address] 06/06/[address] [facility] [address] [place], [place] [address] 06/07/[address] [facility] [address] [place], [place] [address] 06/14/[address] [facility] [address] [place], [place] [address] 06/22/[address] [facility] [address] [place], [place] [address] 06/26/2024 Blayne Bernardo Jr Assessments Encounter Date Diagnosis (ICD Code) Assessment Notes Treatment Notes Treatment Clinical Notes Section Notes 06/19/2024 Abdominal pain (ICD-10 - R10.9) 06/19/[address] scan (ICD-10 - R93.5) 06/04/2024 Generalized abdominal pain (ICD-10 - R10.84) [...] evaluation with upper endoscopy may be necessary. 06/19/2024 Nausea with vomiting, unspecified (ICD-10 - R11.2) Plan Of Treatment Pending Test Test Name Order Date BUN 06/04/2024 CREATININE 06/04/2024 LIVER PROFILE 06/04/2024 LIPASE 06/04/2024 CBC w/o DIFF 06/04/2024 CT ABD & PELVIS WITH CONTRAST 06/04/2024 Next Appt Details Provider Name:Blayne lowery Jr, 12/10/2024 10:20:00 AM, [address], [address], [place], [address], Insurance Providers Payer Name Payer Address Payer Phone Subscriber Number Group Number Insured Name Patient Relationship to Insured Coverage Start Date Coverage End Date [employer] [address] [place] [address] [id number] RADHA MONZON Self - patient is the insured 5 Medical (General) History Medical History History ICD Code Psoriasis Anxiety Surgical History Surgery Date(Month/Year) Cholecystectomy section Umbilical herniorrhaphy with mesh 03/2024 Hospitalization History Reason Date(Month/Year) multiple hospitalizations after keven s
== END 2024-07-17 10:24 | disposition home or self-care (01) ==
LOC: HO.HGS 09:58
PROVIDERS: PCP Nurse Practitioner; Visit Provider Surgery
DX: R10.11 Right upper quadrant pain (principal); K43.2 Incisional hernia without obstruction or gangrene; R11.2 Nausea with vomiting, unspecified
CPT/HCPCS: 99213

== ENCOUNTER → 2024-07-17 09:58 | Outpatient (BNVA) | payer OTHER, SELFPAY | PROVIDERS: PCP Nurse Practitioner; Visit Provider Surgery ==